=== PATIENT | female | born 1935 | race Caucasian/White ===

== ENCOUNTER 2016-09-14 17:45 | Inpatient (IN) | payer BC ==
--- NOTE | ~2016-09-14 | DS ---
Discharge Summary [facility] [address] [place]. [address] NAME: TERESITA PAREKH : 34 STATUS : ADM IN [facility]#: [id number] AGE: 81 ADM/REG DATE : 09/14/16 MR#: [id number] REPORT SERV DATE: 09/22/16 DICTATED BY: TANESHA GEE DATE: 09/21/16 REPORT STATUS : Draft TRANSCRIBED BY: MODJulee DATE: 09/21/16 ADMISSION DATE: 09/14/2016 DISCHARGE DATE: Date of transfer to [facility] is 09/21/2016. CONDITION ON TRANSFER: Stable. DIAGNOSIS ON DISCHARGE/TRANSFER: Are the followin. 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 2. The patient continues to be on soft mechanical diet with aspiration precautions, as that is what the family wished. 3. Her other chronic problems include chronic neck pain from degenerative disk disease of the cervical spine for which patient has had surgery and according to the has steel lore in the cervical spine. For this, she takes chronic pain medications. 4. Hypertension, which is stable. 5. Diabetes mellitus, which is stable. 6. Hypothyroidism, which is stable at this time. 7. Chronic allergies, which are controlled. 8. Pulmonary fibrosis for which the patient is not on any oxygen at home, as it is in the early stages. BRIEF HOSPITAL COURSE: She is an 81-year-old white female patient, who was admitted on 09/14/2016, with weakness slurred speech and shortness of breath. She was admitted with a history of stroke, as she had a fairly large right pontine infarct, which left her with left hemiparesis. As she had come in more than 6 hours later she was not a candidate for tPA. The patient was essentially given symptomatic and supportive care only at this time, as I mentioned above, as she was not a candidate for tPA. Neurology consult was obtained and they suggested an MRI of the brain without contrast, and LP with opening pressure and CSF studies to check for HSV, cryptococcal antigen, PCR, bacterial culture, and Gram stain. Neurology also requested a sedimentation rate, CRP, fasting lipid profile, A1c, and procalcitonin level. They also suggested Depakote intravenously twice a day for headache. The patient also started getting PT/OT as soon as she was stabilized. The patient also got speech therapy consult. She also had a bedside swallow study, which showed that she was at risk for aspiration, but since family wished that she eat a soft mechanical diet and did not want any PEG tube placed at this time and also did not want any Dobhoff feeds placed at this time. She was started on soft mechanical diet with aspiration precautions and she has done well with that. She also gets her medications crushed either in applesauce or pudding. The patient also had a Cardiology consult at one point, because she had a few beats of SVT. Cardiology only suggested resuming her beta herlinda once she has started to be on feeds again and this is exactly what was done and with that her SVT resolved. Discharge Summary [place] [id number] [facility] [place]. [address] NAME: TERESITA PAREKH : 34 STATUS : ADM IN [facility]#: [id number] AGE: 81 ADM/REG DATE : 09/14/16 MR#: [id number] REPORT SERV DATE: 09/22/16 DICTATED BY: TANESHA GEE DATE: 09/21/16 REPORT STATUS : Draft TRANSCRIBED BY: VERNELL DATE: 09/21/16 The patient is ready for transfer to [facility] for ongoing PT and OT, as an inpatient on 09/21/2016, and she has been accepted by [facility]. Her discharge medications will include the following. The patient will be going to [facility] on aspirin 325 p.o. daily. 1. Neurontin 100 mg p.o. t.i.d. 2. Insulin sliding scale. 3. Levothyroxine 88 mcg p.o. daily. 4. Loratadine 10 mg p.o. daily. 5. Metoprolol 25 mg p.o. twice a day. 6. Potassium 20 mEq p.o. twice a day. 7. Simvastatin 40 mg p.o. at bedtime. 8. Januvia 100 mg p.o. daily. 9. Maxzide 50 mg p.o. daily. 10.Albuterol inhalation 4 times a day. 11.Temazepam 15 mg p.o. at bedtime p.r.n. for sleep. 12.OTC Prilosec 20 mg p.o. daily. 13.Tramadol 50-100 mg every four hours p.r.n. for pain and the patient will also be given a prescription for Percocet 5/325 one p.o. q.4 hours p.r.n. for neck pain and also Dulcolax 10 mg suppository p.r.n. for constipation. 14.I have the following labs on the patient upon discharge. First of all, the tests that she has obtained laboratory landeros include the following. CBC, which is the most recent 1 on the shows a WBC count of 9.7, hemoglobin 13.9, hematocrit 40.7, and platelet count 284. Electrolyte profile shows sodium of 143, potassium 3, which will be corrected. BUN 28, creatinine 0.6. 15.Her CSF culture showed that she had no growth at 3 days. Negative for meningitis. HSV was negative too. HSV DNA was not detected. 16.Troponin I was found to be slightly elevated at 0.15 on September 18, but this was deemed as demand ischemia per Cardiology and no further intervention at this time. Ammonia levels were slightly elevated at 33 on September 17. 17.The patient also had cryptococcal antigen that was negative. Sedimentation rate was 7, hemoglobin A1c came back at 7.6, reflecting diabetes mellitus that was fairly well controlled only. 18.Urinalysis showed negative UA on September 14. ABGs that were done on September 14 also showed that the patient was slightly hypoxemic, but she was given supplemental oxygen and this resolved. 19.Imaging studiesthat she has had include a chest x-ray that has come back with no cardiopulmonary abnormality that are acute. She had a brain CT scan without contrast that came back with no acute intracranial abnormality initially, but then when she did get her MRI of the brain, this did showed that she had a pontine infarct acutely. She has an acute right upper pontine infarction superimposed on the area and degeneration, and also moderate to extensive old deep white matter ischemic changes. The acute right upper pontine CVA which has resulted in the significant left-sided hemiparesis. MRA of the head showed atherosclerotic involvement of the basilar and posterior cerebral circulation and also extensive involvement of the middle cerebral circulation bilaterally. 20.Her procalcitonin came back at less than 0.05. Discharge Summary [facility] [address] [place]. [address] NAME: TERESITA PAREKH : 34 STATUS : ADM IN PAT#: [id number] AGE: 81 ADM/REG DATE : 09/14/16 MR#: [id number] REPORT SERV DATE: 09/22/16 DICTATED BY: TANESHA GEE DATE: 09/21/16 REPORT STATUS : Draft TRANSCRIBED BY: MODL DATE: 09/21/16 21.The patient also had a brain natriuretic peptide that was slightly elevated at 160.9 at one point. Her lipid profile that was done on 09/16 shows HDL of 43, LDL of 50, triglycerides of 234. Hence the reason to discontinue the Zocor, which she has always been on. 22.The patient is hence being stabilized and sent in stable condition for further inpatient rehab to [facility] and I have spent about 40 minutes dictating this discharge summary including [id number] encounter and summarizing this discharge. FE/VERNELL Tanesha Gee M.D. / [id number] CC: Jimmy Gonzales M.D.
--- NOTE | ~2016-09-14 | CN ---
Consultation Report [facility] [address] [place]. [address] NAME: TERESITA PAREKH : 34 STATUS : ADM IN PAT#: [id number] AGE: 81 ADM/REG DATE : 09/14/16 MR#: [id number] REPORT SERV DATE: 09/19/16 DICTATED BY: JASMEET WATTERS DATE: 09/19/16 REPORT STATUS : Draft TRANSCRIBED BY: MODJulee DATE: 09/19/16 CARDIOLOGY CONSULTATION DATE OF CONSULTATION: HISTORY: The patient is an 81-year-old white female with a history of hypertension and diabetes, who presented to the ER with weakness and slurring of her speech. The patient's states that she had some weakness and was evaluated in the ER in [facility]. A CT at that time showed no overt stroke; however, she continued to deteriorate to the point where she was able to ambulate and get out of the bed. A subsequent MRI showed a pontine infarct. She failed her initial swallowing study. In the midst of this evaluation process while in the clinical decision unit, she developed several minutes of SVT. Accompanying rhythm strips are consistent with some AV or AV node reentrant process. On some of her baseline rhythm strip, she has inverted P waves suggesting the presence of junctional complexes with retrograde conduction. Presently, she is lethargic. Her is in attendance. However, she is not able to respond to questions. He states she has no known cardiac history. He has never complained of tachy arrhythmias. CURRENT HOME MEDICATIONS: Aspirin 325 a day, Lomotil 2.5 three times a day, guaifenesin and codeine 10 mL seven times a day, hydrocodone/APAP 1 b.i.d., levothyroxine 88 per day, loratadine 10 per day, lorazepam 0.5 a day, metoprolol 25 b.i.d., omeprazole 20 a day, potassium 20 b.i.d., Zantac 150 a day, simvastatin 40 at h.s., sitagliptin 100 per day, sodium chloride nasal spray p.r.n., temazepam 15 at h.s., tramadol 15 b.i.d., and triamterene and hydrochlorothiazide 1 tablet daily. ALLERGIES OR INTOLERANCES: Ticlopidine from Ticlid and sulfa-containing antibiotics. SOCIAL HISTORY: She is . Negative for current alcohol or tobacco use although she was exposed to great deal of secondhand smoke in her job. This is her second marriage as well as her 's second marriage. His 20 some years ago. There were after his , and they have been for 20 some years. PAST MEDICAL HISTORY/REVIEW OF SYSTEMS: See above. Positive for lymphocytic colitis, pulmonary fibrosis, type 2 diabetes mellitus, hypertension, hyperlipidemia, frequent urinary tract infections, fibromyalgia with chronic pain syndrome, and pulmonary hypertension. PREVIOUS SURGICAL HISTORY: Includes cholecystectomy, hysterectomy, appendectomy, cervical spine and knee surgery, abdominoplasty, and previous hemorrhoidectomy. PHYSICAL EXAMINATION: GENERAL: An 81-year-old white female. VITAL SIGNS: Blood pressure presently 175/77, pulse 90 to 100 and regular, respirations 18. Consultation Report [place] [address] [place]. [address] NAME: TERESITA PAREKH : 34 STATUS : ADM IN [facility]#: [id number] AGE: 81 ADM/REG DATE : 09/14/16 MR#: [id number] REPORT SERV DATE: 09/19/16 DICTATED BY: JASMEET WATTERS DATE: 09/19/16 REPORT STATUS : Draft TRANSCRIBED BY: VERNELL DATE: 09/19/16 SKIN: No xanthelasmas. HEENT: She is normocephalic. There is no pallor. Sclerae white. JVD presently is not elevated. CHEST: There are sparse basilar crackles posteriorly. CARDIAC: S1 normal S2 physiologic. There is an S4. There is a 1/6 systolic ejection murmur transmitted to the base and the carotids. ABDOMEN: Soft. EXTREMITIES: Without edema. Pulses are +1 and symmetric. NEUROLOGIC: Somewhat lethargic at this time. Upper right extremity has lower facial palsy. Left eye is in the leftward deviated position. The patient is dysarthric. LABORATORY DATA: BUN 17, creatinine 0.57, potassium 2.9. White count 9.3, hemoglobin 14.2. A 12-lead ECG shows sinus rhythm, normal axes and intervals. Echocardiogram shows normal LV systolic function with no valvular abnormalities. Initial white count of 6.1 and hemoglobin 15.3. IMPRESSION: 1. Pontine stroke with significant impairment. 2. Supraventricular tachycardia, short duration, likely the metoprolol has kept this at advance, at this point, however, I would not treat her with anything. Once enteric access is again provided, we could consider either calcium channel herlinda with resumption of her metoprolol. 3. Diabetes mellitus. 4. Pulmonary fibrosis with hypertension. 5. Hyperlipidemia. We will continue to observe from a far. No need for acute intervention at this time. LORENA/MODL Jasmeet Watters M.D. / [id number] CC: Edson Oliva Jr, MD [facility]
--- NOTE | ~2016-09-14 | HP ---
History And Physical [place] [address] [facility] [place]. [address] NAME: TERESITA PAREKH : 34 STATUS : ADM [facility] PAT#: [id number] AGE: 81 ADM/REG DATE : 09/14/16 MR#: [id number] REPORT SERV DATE: 09/15/16 DICTATED BY: BRIAN NAVARRO DATE: 09/14/16 REPORT STATUS : Draft TRANSCRIBED BY: MODL DATE: 09/14/16 DATE OF ADMISSION: 09/14/2016 CHIEF COMPLAINT: Weakness, slurred speech, and shortness of breath. HISTORY OF PRESENT ILLNESS: This is an 81-year-old female with a history of hypertension, diabetes mellitus, who presents to the emergency room at [facility] with the above-mentioned complaints. History is obtained from the patient, her who is at bedside, and reviewing data available on the [employer] system. According to them, she had started having shortness of breath and extreme weakness yesterday in the morning. This was quite unusual and her was concerned and took her to the emergency room at [facility]. She was worked up including CT of the brain, everything checked out fine and she was discharged home. Unfortunately, the patient's condition got worse, and today she was unable to even get off the bed. She also had nausea and vomited once. Her decided to bring her to the emergency room here at [facility] to be evaluated. During this time, he further elaborated that she did have some slight slurring of speech, and she also had some slowing in her speech. She was weak in both her lower extremities, but did not have any typical stroke-like symptoms. She did not have any chest pain. She does have a history of pulmonary fibrosis, but currently not on home oxygen. In the emergency room, initial workup including CT scan of the brain was negative. EKG showed normal sinus rhythm with a rate of 67 without any ischemic changes. Her room air oxygen saturations were quite low and I had asked for arterial blood gas which showed a pH of 7.46, pCO2 of 42, PaO2 of 54, and a bicarb of 29 on room air. Her magnesium was 1.4 today and her blood pressure upon arrival was 196/113. Hospitalist Service was asked to admit her for further evaluation and treatment. At the time of my evaluation, she denied any chest pain, palpitations, or orthopnea. She had no cough, hemoptysis, night sweats, or weight loss. She has not had any other sputum production either. She has not had any falls or loss of consciousness. No fevers or chills. She did have nausea and vomiting x1 as mentioned above. No history of hematemesis, hematochezia, or hematuria. No diarrhea. No other history of recent travel or exposures. PAST MEDICAL HISTORY: Significant for history of diabetes mellitus type 2, hypertension for which she is on a beta-herlinda, and history of pulmonary fibrosis. SOCIAL HISTORY: She has never smoked. Does not drink, or use recreational drugs. 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 FAMILY HISTORY: Noncontributory. MEDICATIONS: Her medications at home were reviewed by me in the chart today and reordered by me. History And Physical [address] [address] NAME: TERESITA PAREKH : 34 STATUS : ADM [facility] PAT#: [id number] AGE: 81 ADM/REG DATE : 09/14/16 MR#: [id number] REPORT SERV DATE: 09/15/16 DICTATED BY: BRIAN NAVARRO DATE: 09/14/16 REPORT STATUS : Draft TRANSCRIBED BY: VERNELL DATE: 09/14/16 REVIEW OF SYSTEMS: As in history of present illness. All other systems were reviewed in detail and are quite unremarkable. PHYSICAL EXAMINATION: GENERAL: This is a pleasant 81-year-old, not in any acute distress. HEENT: Her head is atraumatic and normocephalic. She is alert, awake, oriented to time, place, and person. Pupils are equal, reacting to light and accommodating. External ocular muscles are intact. Membranes are moist and pink. Sclerae are nonicteric. NECK: Supple with no jugular venous distention, lymphadenopathy, or thyromegaly. LUNGS: Clear to auscultation. There are few Velcro crackles especially in the lower bases, both sides. No expiratory wheezes. Trachea appeared to be in midline. HEART: Auscultation of her heart revealed normal rate and rhythm with no murmurs, rubs, or gallops appreciated. ABDOMEN: Soft and nontender. Bowel sounds are present. There was no organomegaly. EXTREMITIES: Showed trace pitting lower extremity edema. Otherwise, without any cyanosis or clubbing. NEUROLOGIC: Grossly intact. No focal deficits. She was able to move all four extremities. Higher functions appeared intact. Gait was not examined today. VITAL SIGNS: Her temperature today was 98.1, pulse 66, respirations 18 a minute, blood pressure was 196/113. Room air oxygen saturations upon arrival were 88%. LABORATORY DATA: Reviewed on the [employer] system showed a pH of 7.46, pCO2 of 33, PaO2 of 54, and bicarb was 29.6 on arterial blood gas done on room air. CMP showed a sodium of 139, potassium 3.5, chloride 99, and CO2 of 31. BUN was 18 with a creatinine of 0.95 and blood glucose was 140. Her magnesium was 1.4 today. Her BNP was 160.9. Her troponin was 0.02. CBC showed a white blood cell count of 6100. Normal hemoglobin, hematocrit, and platelet count. Urinalysis was done yesterday at [place] which I reviewed and showed no gross abnormality. Films of the CT scan of her brain and x-ray of the chest were reviewed by me on the PACS today and interpreted by me. Per my interpretation the CT of the brain did not show any acute intracranial abnormality. Chest x-ray films showed normal bony architecture with no cardiomegaly. There is increased vascular congestion bilaterally, but no effusions. Compared to her previous films which I reviewed on PACs today's appears to be worse. A 12-lead EKG done in emergency room was reviewed and interpreted by me. There is normal sinus rhythm with a rate of [address]-T changes. IMPRESSION: History And Physical [address] [address] NAME: TERESITA PAREKH : 34 STATUS : ADM [place] PAT#: [id number] AGE: 81 ADM/REG DATE : 09/14/16 MR#: [id number] REPORT SERV DATE: 09/15/16 DICTATED BY: BRIAN NAVARRO DATE: 09/14/16 REPORT STATUS : Draft TRANSCRIBED BY: MODJulee DATE: 09/14/16 1. Generalized weakness. 2. Gait abnormality. 3. Hypoxemia requiring supplemental oxygen therapy and PaO2 on room air of 54. 4. Uncontrolled hypertension. 5. Diabetes mellitus type 2. 6. Hypomagnesemia. 7. Mild volume overload with a history of pulmonary fibrosis. PLAN: We will admit Mrs. Parekh to a telemetry bed for a 24-hour observation period. Her weakness and encephalopathy may be multifactorial including hypoxemia, her uncontrolled hypertension, and maybe even a TIA or CVA. We will go ahead and maximize her bronchodilator treatments, continue supplemental oxygen therapy for now, and also give her a dose of intravenous diuretics. We will follow chemistry, electrolytes, and CBC in the morning. Meanwhile, we will also go ahead and get an echocardiogram. She will certainly need an MRI of her brain, plus carotid duplex ultrasound. We will go ahead and order this. For blood pressure control we will restart her home medications, beta-herlinda that she is on, and also provide hydralazine intravenously on an as-needed basis. It is quite possible being sick for the last two days she may not have taken her medicine. The patient states she did. We will also start her on blood sugar control with NovoLog given subcutaneously per sliding scale and place her on unfractionated heparin for DVT prophylaxis while here. She will certainly need home O2 evaluation before her discharge. I have discussed the above plans with the patient and her . Questions were answered. They are agreeable to the above recommendations. Hospitalist Service will be following her during her stay here. /VERNELL Brian Navarro M.D. / [id number] CC: Edson Oliva Jr, MD
--- NOTE | ~2016-09-14 | CN ---
Consultation Report [facility] [address] [place]. [address] NAME: TERESITA PAREKH : 34 STATUS : ADM IN PAT#: [id number] AGE: 81 ADM/REG DATE : 09/14/16 MR#: [id number] REPORT SERV DATE: 09/18/16 DICTATED BY: SIDRA LACEY DATE: 09/18/16 REPORT STATUS : Draft TRANSCRIBED BY: VERNELL DATE: 09/18/16 GI CONSULTATION DATE OF CONSULTATION: 09/18/2016 REASON FOR CONSULTATION: Evaluation and management of oropharyngeal dysphagia, PEG tube placement secondary to acute CVA. HISTORY OF PRESENT ILLNESS: Ms Parekh is an 81-year-old female patient, known to Dr. Mello Cruz, whom we have seen most recently in the hospital in March 2016. At that time, we saw her for nausea, vomiting, and diarrhea. She underwent EGD and colonoscopy with Dr. Clemente and was subsequently discharged, presented on the with complaints of acute neuro changes. The daughter states that she began to have symptoms last Friday, the , went to [facility], states that all testing was returned negative. She was sent back home. She continued to have progressive left-sided weakness, talked to her primary care physician who instructed her to come to [facility], which when she got here, she was seen. She was seen by Neurology who had an MRI of the brain, which showed right pontine CVA. She has associated left hemiparesis, as well as left eye gaze abnormality. She has failed a bedside swallow evaluation with silent aspiration, inability to control her secretions, thus prompting GI consultation. She was ordered to be started on Plavix; however since she has been n.p.o., she is yet to receive any Plavix. I have discussed with the patient's family, as well as the patient plan for PEG tube to be done on 09/19/[address] Clemente. Risks, benefits, alternatives, and complications detailed for her to include, but not limited to risk of bleeding, perforation, infection, reaction to medications with cardiac and pulmonary side effects. They give consent for us to perform PEG tube on Ms Parekh. PAST MEDICAL HISTORY: Positive for acute on chronic diarrhea, lymphocytic colitis, pulmonary fibrosis, type 2 diabetes, hypertension, elevated cholesterol, UTIs, fibromyalgia, chronic pain medications, vertigo, pulmonary hypertension, depression, and shingles. PAST SURGICAL HISTORY: Cholecystectomy, hysterectomy, appendectomy, back surgery, cervical spine surgery, knee surgery, tummy tuck, and hemorrhoidectomy. SOCIAL HISTORY: . No alcohol, tobacco, or illicits. FAMILY HISTORY: Negative from a GI standpoint. ALLERGIES: TICLID AND SULFA. HOME MEDICATIONS: Aspirin, Lomotil, M-Clear, [place], levothyroxine, Claritin, Ativan, Lopressor, Prilosec, potassium, Zantac, Zocor, Januvia, Esmeralda nasal spray, Restoril, Ultram, and Maxzide. Consultation Report [address] [place]. [address] NAME: TERESITA PAREKH : 34 STATUS : ADM IN PAT#: [id number] AGE: 81 ADM/REG DATE : 09/14/16 MR#: [id number] REPORT SERV DATE: 09/18/16 DICTATED BY: SIDRA LACEY DATE: 09/18/16 REPORT STATUS : Draft TRANSCRIBED BY: VERNELL DATE: 09/18/16 REVIEW OF SYSTEMS: Unable to be obtained secondary to the patient's decreased neuro status. PHYSICAL EXAMINATION: VITAL SIGNS: Temperature 97.9, pulse 95, respirations 22, and blood pressure 172/79. NEURO: Reveals a groggy female, resting in bed with notable left-sided weakness, left hemiparesis, and left eye gaze abnormality. GENERAL: She is in no obvious distress. HEAD, EARS, EYES, NOSE, AND THROAT: Anicteric. NECK: No JVD. No palpable nodes. LUNGS: Diminished throughout. Normal respiratory effort exhibited. CARDIOVASCULAR SYSTEM: Regular rate and rhythm. ABDOMEN: Soft, nontender, obese. Active bowel sounds. No distention. No guarding. No rebound or organomegaly appreciated on exam. EXTREMITIES: No edema. Normal distal pulses. SKIN: Warm, dry, and intact. PERTINENT LABORATORY DATA: Sodium 143, potassium 3.1, BUN is 25, creatinine 0.67. White count 7.9, hemoglobin 14.6, hematocrit 43.2, and platelet count 259. ASSESSMENT AND PLAN: 1. Oropharyngeal dysphagia with silent aspiration. 2. Status post right pontine cerebrovascular accident with left-sided weakness/hemiparesis. 3. Hypertension. 4. Diabetes. PLAN: 1. Continue to hold Plavix as she is yet to receive a dose. 2. Hold her heparin of today's 2 p.m. dose. 3. Preprocedure antibiotics of Levaquin. 4. PEG tube on the with Dr. Clemente. 5. Nutrition consult for tube feeding recommendations and management. DG/MODL Sidra ELIOT Calderon / [id number] CC: Edson Oliva Jr, MD Jerrold Selzer, M.D.
--- NOTE | ~2016-09-14 | DS ---
Discharge Summary [address] [place]. [address] NAME: TERESITA PAREKH : 34 STATUS : DIS IN PAT#: [id number] AGE: 81 ADM/REG DATE : 09/14/16 MR#: [id number] REPORT SERV DATE: 09/24/16 DICTATED BY: TANESHA GEE DATE: 09/23/16 REPORT STATUS : Draft TRANSCRIBED BY: MODL DATE: 09/23/16 ADMISSION DATE: 09/14/2016 DISCHARGE DATE: 09/23/2016 ADDENDUM: DISPOSITION: Transfer to [facility] on [facility]. CONDITION ON TRANSFER: Stable. DATE OF TRANSFER: 09/23/2016. Please refer to my discharge summary that was dictated on 09/21/2016. Discharge was held on 09/21/2016 and was postponed until 09/23/2016 for two reasons because of bed availability and the patient developed some hematuria in the meantime. However, once the patient was given fluids and her Tate catheter was discontinued, her hematuria completely resolved and hence, the patient is being transferred to [facility] in stable condition. FE/VERNELL Tanesha Gee M.D. / [id number] CC: Jimmy Gonzales M.D.
--- NOTE | ~2016-09-14 | CN ---
Consultation Report [facility] [address] [place]. [address] NAME: TERESITA PAREKH : 34 STATUS : ADM Caren PAT#: [id number] AGE: 81 ADM/REG DATE : 09/14/16 MR#: [id number] REPORT SERV DATE: 09/15/16 DICTATED BY: DATE: REPORT STATUS : Draft TRANSCRIBED BY: MODL DATE: 09/15/16 NEUROLOGY CONSULTATION DATE OF CONSULTATION: 09/15/2016 REASON FOR CONSULT: Acute neurological changes. HISTORY OF PRESENT ILLNESS: This is an 81-year-old female, who presented to the [facility] secondary to headache, as well as weakness. The patient was noted to have slurred speech starting on September 14, 2016 with the patient's symptom progressively getting worse over the night, throughout the night at hospital, also noted the patient to start developing left-sided weakness, particularly in the left arm with the patient's reports time of onset for left upper extremity weakness to be around 0200 hours to 0300 hours with the patient's symptom remains unchanged since the onset. The patient currently complains of severe headache with associated nausea, as well as vomiting with the left upper extremity weakness. The patient's also reports some signs between September 14 to September 15. The patient was noted to have left eye gaze abnormalities. The patient was not noted to have similar events in the past, but was noted to have chronic headache for the past two to three months worse when the patient was lying down at night. No reports of fever or chills at home and no reports of other illness at home. No reports of medication changes according to the . PAST MEDICAL HISTORY: Significant for type 2 diabetes, hypertension, as well as history of pulmonary fibrosis. SOCIAL HISTORY: Denies tobacco, alcohol, or recreational drug usage. No report of significant family history was noted. FAMILY HISTORY: Significant for diabetes, heart disease, as well as lung cancer with the patient reports multiple sensitivities to medications, but cannot remember. ALLERGIES: THE PATIENT OTHERWISE REPORTS ALLERGY TO TICLID, WELL SULFA MEDICATION. HOME MEDICATION: Consists of aspirin, Lomotil, levothyroxine, Claritin, Lopressor, potassium, Zocor, Januvia, nasal spray, and Maxzide. REVIEW OF SYSTEMS: Difficult to obtain from the patient secondary to the patient's current mental status, negative except for those mentioned in the HPI according to the . PHYSICAL EXAMINATION: VITAL SIGNS: Overnight, the patient was noted to have vital signs with T-max of 98.5, heart rates of 57 to 72, respirations of 14 to 16, and blood pressure of 172 to 188 over 72 to 89. GENERAL: The patient is well developed, well nourished, in no acute distress. Consultation Report [address] [place]. [address] NAME: TERESITA PAREKH : 34 STATUS : ADM Caren PAT#: [id number] AGE: 81 ADM/REG DATE : 09/14/16 MR#: [id number] REPORT SERV DATE: 09/15/16 DICTATED BY: DATE: REPORT STATUS : Draft TRANSCRIBED BY: MODL DATE: 09/15/16 CARDIOVASCULAR: Regular rate and rhythm. No carotid bruits were otherwise auscultated. PULMONARY: Clear to auscultation bilaterally. NEUROLOGICAL: Generally, the patient is lethargic, was able to be aroused with verbal and tactile stimulation. The patient was moaning in bed secondary to pain, otherwise was following some sporadic simple commands. At the time of evaluation, dysarthria was noted. The patient is oriented to self, as well as place and month, not to year. Minimal verbal response was noted. Aphasia was difficult to assess. The patient otherwise was noted to have pupils equal, round, and reactive to light with right eye in the midline position, left eye in the leftward deviated position. The patient was noted to have intact extraocular eye movement with the right eye with the patient noted to have difficulties moving the left eye towards the right. Otherwise, bilateral blink to threat response was seen. The patient demonstrated right upper, as well as lower facial palsy at the time of evaluation with the patient noted to have weakness in the left upper extremity, as well as bilateral lower extremity. The patient is able to maintain arm elevations in the left upper extremity. Deep tendon reflex was hyperreflexic in bilateral arms, otherwise 1+ in bilateral patellar reflex. Gait and cerebellar examination was not tested secondary to the patient's mental status. LABORATORY STUDIES: Demonstrated white blood cell count of 6.7, hemoglobin of 16.3, hematocrit of 46.6, and platelet count of 259. Chemistry panel: Sodium of 138, potassium 3.2, chloride of 96, bicarb 31, BUN of 15, creatinine of 0.93, glucose of 161, calcium of 9.9, magnesium 1.5. Serum TSH of 1.02. Serum ABG demonstrated pH of 7.46, pCO2 of 43, pO2 of 54, bicarb of 29.6, and O2 saturation of 89.0. Urinalysis demonstrated negative leukocyte esterase, negative nitrites. CT scan of the brain otherwise demonstrated no acute process, underlying white matter disease was seen. CT angiogram, no clear intracranial thrombosis was noted. The radiology interpretation is currently pending. IMPRESSION: 1. Hemiparesis, as well as headache with the patient's reports the headache has been ongoing for the past two to three months. The patient otherwise was noted to have weakness in the left upper, as well as bilateral lower extremities with gait abnormalities. Unfortunately, alteplase was not offered as the patient's symptom has been ongoing for greater than 4.5 hours. No clear abnormality was noted with CT angiogram. We will continue to monitor the patient's clinical progression. We will recommend the MRI of the brain today and obtain lumbar puncture. We will also obtain laboratory studies for evaluation. The patient's current NIH stroke scale was 23. RECOMMENDATIONS: 1. MRI of the brain without contrast. 2. LP with opening pressure. 3. CSF for protein, glucose, cell count with differential, HSV PCR, cryptococcal antigen, Consultation Report [address] [address] NAME: TERESITA PAREKH : 34 STATUS : ADM Caren PAT#: [id number] AGE: 81 ADM/REG DATE : 09/14/16 MR#: [id number] REPORT SERV DATE: 09/15/16 DICTATED BY: DATE: REPORT STATUS : Draft TRANSCRIBED BY: MODL DATE: 09/15/16 Gram stain, bacterial culture. 4. Sedimentation rate, CRP, fasting lipid panel, and hemoglobin A1c, and procalcitonin level. 5. Speech Therapy consult. 6. PT/OT. 7. Depakote 125 mg IV b.i.d. for headache. 8. Toradol 30 mg IV t.i.d. for headache. 9. Aspirin and statin. [facility]/MODL Truong Yo MD / [id number] CC: Edson Oliva Jr, MD
[~2016-09-14 17:45] MED LIST: ACTOS15 PO; ALAVERT10 MG PO; AMB5 PO; ASA5GR PO; ATV.5 PO; AVAP150 PO; CLARIT10 PO; COZAAR100 MG PO; DIOVAN320 MG PO; FISH-EPA1000 MG PO; ISOPTINSR PO; JANUVIA100 MG PO; K-TABS10 MEQ PO; KLOR-CON M2020 MEQ PO; L20 PO; LEVAQUIN5T PO; LEVBID PO; LEVOTHYROXIN75 MCG PO; LEVOTHYROXIN88 MCG PO; LIPITOR10 PO; LOM PO; LOP25 PO; LORTAB 5 PO; MAGOX4 PO; MAX25 PO; NORCO1 TA1 PO; NORV5 PO; OCEAN NAS; PEPTO-BISMOL TA1 TAB PO; PREV15 PO; PREV30 PO; PREVALITE4 G1 PO; PROTONIX PO; RANITIDINE300 MG PO; REST15 PO; SLOWMAG PO; SYN075 PO; TOPXL25 PO; Z100 PO; ZANTAC OTC PO; ZOCOR20 PO; ZOCOR40 PO; [UNRECOGNIZED DRUG - CODE] PO
[2016-09-14 18:08] LABS: BASOPHILS 0.3 %; BASOPHILS ABSOLUTE 0.02 10/3/uL (0.0-0.16); EOSINOPHILS 2.8 %; EOSINOPHILS ABSOLUTE 0.17 10/3/uL (0.0-0.53); ER CBC TAT 0 Hrs 08 Mins; HEMATOCRIT 44.2 % (36.0-48.0); HEMOGLOBIN 15.3 g/dL (12.0-16.0); IMMATURE GRANULOCYTES 0.2 %; IMMATURE GRANULOCYTES ABSOLUTE 0.01 10/3/uL (0.0-0.11); LYMPHOCYTES 20.1 %; LYMPHOCYTES ABSOLUTE 1.22 10/3/uL (0.67-4.30); MEAN CORPUSCULAR HEMOGLOB 34.5 pg (26.0-34.0); MEAN CORPUSCULAR VOLUME 99.5 fL (80-100); MEAN PLATELET VOLUME 9.2 fL (9.2-13.0); MONOCYTES 9.2 %; MONOCYTES ABSOLUTE 0.56 10/3/uL (0.21-1.20); NEUTROPHILS 67.4 %; NEUTROPHILS ABSOLUTE 4.09 10/3/uL (2.02-8.40); PLATELET COUNT 237 10/3/uL (150-400); RBC DISTRIBUTION WIDTH 12.6 % (12.0-16.0); RED CELL COUNT 4.44 10/6/uL (4.0-5.6); WHITE BLOOD CELLS 6.1 10/3/uL (4.5-10.5)
[2016-09-14 18:10] LABS: MANUAL DIFF NO %; MEAN CORPUS HGB CONC 34.6 g/dL (32.0-36.0)
[2016-09-14 18:23] LABS: INTERNATIONAL NORMAL RATI 1.1 UNITS (-); PROTIME (NOT ORD) 13.9 SEC (12.0-14.5)
[2016-09-14 18:25] LABS: CHEST PAIN PROFILE TAT 0 Hrs 25 Mins; CHLORIDE, SERUM 97 MMOL/L (96-112); CO2 (CARBON DIOXIDE) 31 MMOL/L (24-34); CREATININE 0.95 MG/DL (0.55-1.02); GFR AFRICAN AMERICAN 65 ML/MIN (>=60); GFR NON AFRICAN AMERICAN 56 ML/MIN (>=60); GLUCOSE, SERUM 140 MG/DL (60-99); POTASSIUM, SERUM 3.5 MMOL/L (3.5-5.3); SODIUM, SERUM 139 MMOL/L (135-148); TROPONIN I <0.02 NG/ML (<0.05)
[2016-09-14 18:27] LABS: BUN (BLOOD UREA NITROGEN) 18 MG/DL (6-23)
[2016-09-14] MEDS ORDERED: ASA5GR PO (19:22)
[2016-09-14] MEDS ORDERED: LEVOTHYROXIN88 MCG PO (19:22)
[2016-09-14] MEDS ORDERED: KLOR-CON M2020 MEQ PO (19:22)
[2016-09-14] MEDS ORDERED: CLARIT10 PO (19:23)
[2016-09-14] MEDS ORDERED: LOP50 PO (19:23)
[2016-09-14] MEDS ORDERED: MAX25 PO (19:23)
[2016-09-14] MEDS ORDERED: JANUVIA100 MG PO (19:23)
[2016-09-14] MEDS ORDERED: ZOCOR40 PO (19:23)
[2016-09-14] MEDS ORDERED: LOM PO (19:24)
[2016-09-14] MEDS ORDERED: *UNABLE1 (19:24)
[2016-09-14] MEDS ORDERED: OCEAN NAS (19:24)
[2016-09-14 19:37] LABS: BE (BASE EXCESS) 5.2 MEQ/L (0 +/- 2.5); CARBOXYHEMOGLOBIN 1.5 % (0-3); HCO3 (ACTUAL BICARBONATE) 29.6 MEQ/L (23-27); HEMOBLOGIN CONTENT 16.1 G/DL (12-16); INSTRUMENT SERIAL # 8087; METHEMOGLOBIN 0.3 % (0-3); O2 CONTENT 19.7 VOL% (18-24); OPERATOR ID 17537; PCO2 (CO2 TENSION) 43 MMHG (35-45); PO2 (O2 TENSION) 54 MMHG (79-93); SAMPLE Arterial; pH 7.46 (7.37-7.43)
[2016-09-14 19:38] LABS: ALLENS TEST Pos
[2016-09-14 19:40] LABS: ASCORBIC ACID (UR NOT ORDER) NEG (NEG); BILIRUBIN, URINE NEGATIVE (NEG); ER URINALYSIS TAT 0 Hrs 10 Mins; KETONE, URINE NEGATIVE (NEG); LEUKOCYTE ESTERASE(NOT OR NEG (NEG); NITRITE (URINE) NEG (NEG); WBC (NOT ORDERED) (RFLEX) 2 (0-5)
[2016-09-15 04:43] LABS: BASOPHILS 0.3 %; BASOPHILS ABSOLUTE 0.02 10/3/uL (0.0-0.16); EOSINOPHILS 2.8 %; EOSINOPHILS ABSOLUTE 0.19 10/3/uL (0.0-0.53); HEMATOCRIT 46.6 % (36.0-48.0); HEMOGLOBIN 16.3 g/dL (12.0-16.0); LYMPHOCYTES 14.7 %; LYMPHOCYTES ABSOLUTE 0.98 10/3/uL (0.67-4.30); MEAN CORPUSCULAR HEMOGLOB 34.5 pg (26.0-34.0); MEAN CORPUSCULAR VOLUME 98.7 fL (80-100); MEAN PLATELET VOLUME 9.6 fL (9.2-13.0); NEUTROPHILS 73.2 %; NEUTROPHILS ABSOLUTE 4.88 10/3/uL (2.02-8.40); PLATELET COUNT 259 10/3/uL (150-400); RBC DISTRIBUTION WIDTH 12.5 % (12.0-16.0); RED CELL COUNT 4.72 10/6/uL (4.0-5.6); WHITE BLOOD CELLS 6.7 10/3/uL (4.5-10.5)
[2016-09-15 04:47] LABS: MANUAL DIFF NO %
[2016-09-15 05:11] LABS: BUN (BLOOD UREA NITROGEN) 15 MG/DL (6-23); CALCIUM, SERUM 9.9 MG/DL (8.5-10.4); CHLORIDE, SERUM 96 MMOL/L (96-112); CO2 (CARBON DIOXIDE) 31 MMOL/L (24-34); CREATININE 0.93 MG/DL (0.55-1.02); GFR AFRICAN AMERICAN 66 ML/MIN (>=60); GFR NON AFRICAN AMERICAN 57 ML/MIN (>=60); GLUCOSE, SERUM 161 MG/DL (60-99); PHOSPHORUS, SERUM 3.9 MG/DL (2.5-4.5); POTASSIUM, SERUM 3.2 MMOL/L (3.5-5.3); SODIUM, SERUM 138 MMOL/L (135-148)
[2016-09-15 10:37] LABS: TROPONIN I <0.02 NG/ML (<0.05)
[2016-09-15 10:38] LABS: C-REACTIVE PROTEIN 3.6 MG/L (<8.0)
[2016-09-15 10:40] LABS: PROCALCITONIN <0.05 ng/mL (<0.5)
[2016-09-15] MEDS ORDERED: LOP25 PO (17:17)
[2016-09-15] MEDS ORDERED: REST15 PO (17:34)
[2016-09-15] MEDS ORDERED: ATV.5 PO (17:35)
[2016-09-15] MEDS ORDERED: MAX25 PO (17:35)
[2016-09-15] MEDS ORDERED: PRILOSEC OTC20 MG PO (17:41)
[2016-09-15] MEDS ORDERED: ZANTAC 150 PO (17:41)
[2016-09-15] MEDS ORDERED: NORCO1 TA1 PO (17:43)
[2016-09-15] MEDS ORDERED: ULTRAM50 PO (17:44)
[2016-09-15] MEDS ORDERED: M-CLEAR WC PO (17:45)
[2016-09-16 03:51] LABS: CHOL/HDL RATIO(NOT ORDER) 3.2 (0-5)
[2016-09-16 09:44] LABS: CSF APPEARANCE (NOT ORD) CLEAR (CLEAR); CSF COLOR (NOT ORD) COLORLESS (COLORLESS); CSF XANTHROCHROMIA NEG (NEG)
[2016-09-16 09:45] LABS: CSF WBC (NOT ORD) 2 /uL (0-10)
[2016-09-16 09:52] LABS: TOTAL PROTEIN, CSF 55.6 MG/DL (15-45)
[2016-09-16 10:48] LABS: CSF RBC (NOT ORD) 0 MM3 (NO REFERENCE)
[2016-09-16 10:54] LABS: CSF BASO 0 % (NO REF RANGE); CSF EOS 0 % (0-1); CSF LYMPH (NOT ORD) 62 % (28-96); CSF MONO 34 % (16-56); CSF SEGS (NOT ORD) 3 % (0-7)
[2016-09-18 04:35] LABS: BASOPHILS 0.1 %; BASOPHILS ABSOLUTE 0.01 10/3/uL (0.0-0.16); EOSINOPHILS 0.3 %; EOSINOPHILS ABSOLUTE 0.02 10/3/uL (0.0-0.53); HEMATOCRIT 43.2 % (36.0-48.0); HEMOGLOBIN 14.6 g/dL (12.0-16.0); IMMATURE GRANULOCYTES 0.1 %; IMMATURE GRANULOCYTES ABSOLUTE 0.01 10/3/uL (0.0-0.11); LYMPHOCYTES 8.1 %; LYMPHOCYTES ABSOLUTE 0.64 10/3/uL (0.67-4.30); MANUAL DIFF NO %; MEAN CORPUS HGB CONC 33.8 g/dL (32.0-36.0); MEAN CORPUSCULAR HEMOGLOB 34.4 pg (26.0-34.0); MEAN CORPUSCULAR VOLUME 101.6 fL (80-100); MEAN PLATELET VOLUME 9.6 fL (9.2-13.0); MONOCYTES 5.6 %; MONOCYTES ABSOLUTE 0.44 10/3/uL (0.21-1.20); NEUTROPHILS 85.8 %; NEUTROPHILS ABSOLUTE 6.77 10/3/uL (2.02-8.40); PLATELET COUNT 259 10/3/uL (150-400); RBC DISTRIBUTION WIDTH 13.2 % (12.0-16.0); RED CELL COUNT 4.25 10/6/uL (4.0-5.6); WHITE BLOOD CELLS 7.9 10/3/uL (4.5-10.5)
[2016-09-18 04:42] LABS: CHLORIDE, SERUM 105 MMOL/L (96-112); CREATININE 0.67 MG/DL (0.55-1.02); GFR AFRICAN AMERICAN 95 ML/MIN (>=60); GFR NON AFRICAN AMERICAN 82 ML/MIN (>=60); GLUCOSE, SERUM 156 MG/DL (60-99); SODIUM, SERUM 143 MMOL/L (135-148)
[2016-09-18 04:44] LABS: BUN (BLOOD UREA NITROGEN) 25 MG/DL (6-23); CALCIUM, SERUM 7.8 MG/DL (8.5-10.4); CO2 (CARBON DIOXIDE) 25 MMOL/L (24-34); POTASSIUM, SERUM 3.1 MMOL/L (3.5-5.3)
[2016-09-18 13:36] LABS: HSV DNA TYPE 1 Not Detected (NOTDET); HSV DNA TYPE 2 Not Detected (NOTDET)
[2016-09-18 16:39] LABS: POTASSIUM, SERUM 3.2 MMOL/L (3.5-5.3)
[2016-09-18 16:41] LABS: TROPONIN I 0.15 NG/ML (<0.05)
[2016-09-19 07:07] LABS: BASOPHILS 0.1 %; BASOPHILS ABSOLUTE 0.01 10/3/uL (0.0-0.16); EOSINOPHILS 0.6 %; EOSINOPHILS ABSOLUTE 0.06 10/3/uL (0.0-0.53); HEMATOCRIT 41.3 % (36.0-48.0); HEMOGLOBIN 14.2 g/dL (12.0-16.0); IMMATURE GRANULOCYTES 0.3 %; IMMATURE GRANULOCYTES ABSOLUTE 0.03 10/3/uL (0.0-0.11); LYMPHOCYTES 9.2 %; LYMPHOCYTES ABSOLUTE 0.85 10/3/uL (0.67-4.30); MEAN CORPUS HGB CONC 34.4 g/dL (32.0-36.0); MEAN CORPUSCULAR HEMOGLOB 33.6 pg (26.0-34.0); MEAN PLATELET VOLUME 9.4 fL (9.2-13.0); MONOCYTES 5.8 %; MONOCYTES ABSOLUTE 0.54 10/3/uL (0.21-1.20); NEUTROPHILS ABSOLUTE 7.77 10/3/uL (2.02-8.40); PLATELET COUNT 256 10/3/uL (150-400); RBC DISTRIBUTION WIDTH 13.2 % (12.0-16.0); RED CELL COUNT 4.23 10/6/uL (4.0-5.6); WHITE BLOOD CELLS 9.3 10/3/uL (4.5-10.5)
[2016-09-19 07:08] LABS: MANUAL DIFF NO %; MEAN CORPUSCULAR VOLUME 97.6 fL (80-100)
[2016-09-19 07:16] LABS: INTERNATIONAL NORMAL RATI 1.3 UNITS (-)
[2016-09-19 07:17] LABS: PROTIME (NOT ORD) 16.3 SEC (12.0-14.5)
[2016-09-19 07:22] LABS: CALCIUM, SERUM 7.7 MG/DL (8.5-10.4); CHLORIDE, SERUM 100 MMOL/L (96-112); CO2 (CARBON DIOXIDE) 25 MMOL/L (24-34); CREATININE 0.57 MG/DL (0.55-1.02); GFR AFRICAN AMERICAN 100 ML/MIN (>=60); GFR NON AFRICAN AMERICAN 86 ML/MIN (>=60); GLUCOSE, SERUM 129 MG/DL (60-99); SODIUM, SERUM 139 MMOL/L (135-148)
[2016-09-19 07:23] LABS: BUN (BLOOD UREA NITROGEN) 17 MG/DL (6-23); POTASSIUM, SERUM 2.9 MMOL/L (3.5-5.3)
[2016-09-20 06:08] LABS: CALCIUM, SERUM 7.9 MG/DL (8.5-10.4); CHLORIDE, SERUM 104 MMOL/L (96-112); CO2 (CARBON DIOXIDE) 23 MMOL/L (24-34); CREATININE 0.61 MG/DL (0.55-1.02); GFR AFRICAN AMERICAN 98 ML/MIN (>=60); GFR NON AFRICAN AMERICAN 84 ML/MIN (>=60); GLUCOSE, SERUM 154 MG/DL (60-99); SODIUM, SERUM 141 MMOL/L (135-148)
[2016-09-20 06:09] LABS: BUN (BLOOD UREA NITROGEN) 23 MG/DL (6-23); POTASSIUM, SERUM 2.8 MMOL/L (3.5-5.3)
[2016-09-21 06:35] LABS: BASOPHILS 0.1 %; BASOPHILS ABSOLUTE 0.01 10/3/uL (0.0-0.16); EOSINOPHILS 0.5 %; EOSINOPHILS ABSOLUTE 0.05 10/3/uL (0.0-0.53); HEMATOCRIT 40.7 % (36.0-48.0); HEMOGLOBIN 13.9 g/dL (12.0-16.0); IMMATURE GRANULOCYTES 0.3 %; IMMATURE GRANULOCYTES ABSOLUTE 0.03 10/3/uL (0.0-0.11); LYMPHOCYTES 6.4 %; LYMPHOCYTES ABSOLUTE 0.62 10/3/uL (0.67-4.30); MEAN CORPUS HGB CONC 34.2 g/dL (32.0-36.0); MEAN CORPUSCULAR HEMOGLOB 34.8 pg (26.0-34.0); MEAN PLATELET VOLUME 9.6 fL (9.2-13.0); MONOCYTES ABSOLUTE 1.06 10/3/uL (0.21-1.20); NEUTROPHILS 81.7 %; NEUTROPHILS ABSOLUTE 7.89 10/3/uL (2.02-8.40); PLATELET COUNT 284 10/3/uL (150-400); RBC DISTRIBUTION WIDTH 13.6 % (12.0-16.0); WHITE BLOOD CELLS 9.7 10/3/uL (4.5-10.5)
[2016-09-21 06:36] LABS: MANUAL DIFF NO %; MEAN CORPUSCULAR VOLUME 101.8 fL (80-100)
[2016-09-21 06:48] LABS: CALCIUM, SERUM 7.8 MG/DL (8.5-10.4); CHLORIDE, SERUM 108 MMOL/L (96-112); CO2 (CARBON DIOXIDE) 27 MMOL/L (24-34); GFR AFRICAN AMERICAN 98 ML/MIN (>=60); GFR NON AFRICAN AMERICAN 85 ML/MIN (>=60); GLUCOSE, SERUM 163 MG/DL (60-99); SODIUM, SERUM 143 MMOL/L (135-148)
[2016-09-21 06:53] LABS: BUN (BLOOD UREA NITROGEN) 28 MG/DL (6-23)
[2016-09-22 14:08] LABS: WBC (NOT ORDERED) (RFLEX) 0 (0-5)
[2016-09-22 14:26] LABS: ASCORBIC ACID (UR NOT ORDER) 20 (NEG); BILIRUBIN, URINE NEGATIVE (NEG); KETONE, URINE NEGATIVE (NEG); LEUKOCYTE ESTERASE(NOT OR NEG (NEG)
[2016-09-23 06:05] LABS: BASOPHILS 0.2 %; BASOPHILS ABSOLUTE 0.02 10/3/uL (0.0-0.16); EOSINOPHILS 3.3 %; EOSINOPHILS ABSOLUTE 0.31 10/3/uL (0.0-0.53); HEMATOCRIT 41.6 % (36.0-48.0); HEMOGLOBIN 14.2 g/dL (12.0-16.0); IMMATURE GRANULOCYTES 0.3 %; IMMATURE GRANULOCYTES ABSOLUTE 0.03 10/3/uL (0.0-0.11); LYMPHOCYTES 6.5 %; LYMPHOCYTES ABSOLUTE 0.62 10/3/uL (0.67-4.30); MEAN CORPUS HGB CONC 34.1 g/dL (32.0-36.0); MEAN CORPUSCULAR HEMOGLOB 33.7 pg (26.0-34.0); MEAN CORPUSCULAR VOLUME 98.8 fL (80-100); MEAN PLATELET VOLUME 9.8 fL (9.2-13.0); MONOCYTES 9.5 %; NEUTROPHILS 80.2 %; PLATELET COUNT 305 10/3/uL (150-400); RBC DISTRIBUTION WIDTH 13.5 % (12.0-16.0); RED CELL COUNT 4.21 10/6/uL (4.0-5.6); WHITE BLOOD CELLS 9.5 10/3/uL (4.5-10.5)
[2016-09-23 06:06] LABS: MANUAL DIFF NO %
[2016-09-23 06:17] LABS: BUN (BLOOD UREA NITROGEN) 17 MG/DL (6-23); CALCIUM, SERUM 8.3 MG/DL (8.5-10.4); CHLORIDE, SERUM 99 MMOL/L (96-112); CO2 (CARBON DIOXIDE) 26 MMOL/L (24-34); CREATININE 0.54 MG/DL (0.55-1.02); GFR AFRICAN AMERICAN 102 ML/MIN (>=60); GFR NON AFRICAN AMERICAN 88 ML/MIN (>=60); GLUCOSE, SERUM 159 MG/DL (60-99); POTASSIUM, SERUM 4.3 MMOL/L (3.5-5.3); SODIUM, SERUM 136 MMOL/L (135-148)
[2016-09-24] MEDS ORDERED: LIPITOR80 MG PO (11:12)
[2016-09-24] MEDS ORDERED: ASA5GR PO (11:12)
[2016-09-24] MEDS ORDERED: CLARIT10 PO (11:12)
[2016-09-24] MEDS ORDERED: DSS PO (11:12)
[2016-09-24] MEDS ORDERED: NEUR100 PO (11:13)
[2016-09-24] MEDS ORDERED: SYN88 PO (11:14)
[2016-09-24] MEDS ORDERED: HUMALOG SC (11:14)
[2016-09-24] MEDS ORDERED: JANUVIA100 MG PO (11:14)
[2016-09-24] MEDS ORDERED: LOP25 PO (11:15)
[2016-09-24] MEDS ORDERED: KLOR-CON M2020 MEQ PO (11:15)
[2016-09-24] MEDS ORDERED: MAXZIDE PO (11:15)
[2016-09-24] MEDS ORDERED: ALBUTEROL0.083 % INH ×2 (11:16→11:18)
[2016-09-24] MEDS ORDERED: ENDOCET1 TAB PO (11:18)
[2016-09-24] MEDS ORDERED: REST15 PO (11:19)
[2016-09-24] MEDS ORDERED: ULTRAM50 PO (11:19)
[2016-11-05] MEDS ORDERED: ASAB PEG (08:12)
[2016-11-05] MEDS ORDERED: NORV5 PEG (08:12)
[2017-01-03] MEDS ORDERED: LOVENOX40 SC (00:33)
[2017-01-03] MEDS ORDERED: HUMALOG SC (00:34)
[2017-01-03] MEDS ORDERED: LEVEMIR SC (00:35)
[2017-01-03] MEDS ORDERED: PRIN10 PEG (00:36)
[2017-01-03] MEDS ORDERED: ASAB PEG (00:36)
[2017-01-03] MEDS ORDERED: SYN125 PEG (00:36)
[2017-01-03] MEDS ORDERED: DUONEB INH (00:36)
[2017-01-03] MEDS ORDERED: KCL20UDL PEG (00:37)
[2017-01-03] MEDS ORDERED: FLORASTOR250 MG PEG (00:37)
[2017-01-03] MEDS ORDERED: LIPITOR80 MG PEG (00:38)
[2017-01-03] MEDS ORDERED: PROTONI1 PEG (00:38)
[2017-01-03] MEDS ORDERED: COREG6 PEG (00:38)
[2017-01-03] MEDS ORDERED: ACETSUP650 PR (00:39)
[2017-01-03] MEDS ORDERED: ZOFRAN4 PEG (00:39)
[2017-01-03] MEDS ORDERED: PLAVIX PO (04:26)
[2017-01-22] MEDS ORDERED: LOVENOX40 SC (01:50)
[2017-01-22] MEDS ORDERED: PLAVIX PEG (01:50)
[2017-01-22] MEDS ORDERED: HUMALOG SC (01:51)
[2017-01-22] MEDS ORDERED: LEVEMFLXPN SC (01:51)
[2017-01-22] MEDS ORDERED: ASAB PEG (01:51)
[2017-01-22] MEDS ORDERED: FLORASTOR250 MG PEG (01:53)
[2017-01-22] MEDS ORDERED: KCL20UDL PEG (01:53)
[2017-01-22] MEDS ORDERED: LIPITOR80 MG PEG (01:54)
[2017-01-22] MEDS ORDERED: COREG25 PEG (01:55)
[2017-01-22] MEDS ORDERED: PROTONI1 PEG (01:55)
[2017-01-22] MEDS ORDERED: DUONEB INH ×2 (01:56→01:57)
[2017-01-22] MEDS ORDERED: APRES50 PEG (01:56)
[2017-01-22] MEDS ORDERED: PRIN20 PEG (01:56)
[2017-01-22] MEDS ORDERED: BROVANA15 MCG INH (01:57)
[2017-01-22] MEDS ORDERED: ZOFRAN4 PEG (01:58)
[2017-01-22] MEDS ORDERED: ACETSUP650 PR (01:58)
[2017-01-22] MEDS ORDERED: SYN.15 PEG (01:59)
[2017-01-22] MEDS ORDERED: RISAMINE OINTMENT TOP (02:00)
[2017-02-11] MEDS ORDERED: PLAVIX PEG (19:08)
[2017-02-11] MEDS ORDERED: LOVENOX40 SC (19:09)
[2017-02-11] MEDS ORDERED: NOVOLOG SC (19:10)
[2017-02-11] MEDS ORDERED: LEVEMIR SC (19:12)
[2017-02-11] MEDS ORDERED: SYN.15 PEG (19:13)
[2017-02-11] MEDS ORDERED: PROTONI1 PEG (19:13)
[2017-02-11] MEDS ORDERED: ASAB PEG (19:14)
[2017-02-11] MEDS ORDERED: NORV5 PEG (19:14)
[2017-02-11] MEDS ORDERED: TEARS PURE OPH (19:14)
[2017-02-11] MEDS ORDERED: COREG25 PEG (19:15)
[2017-02-11] MEDS ORDERED: ZESTRIL30 MG PEG (19:15)
[2017-02-11] MEDS ORDERED: FLORASTOR250 MG PEG (19:16)
[2017-02-11] MEDS ORDERED: KCL20UDL PEG (19:16)
[2017-02-11] MEDS ORDERED: DUONEB INH ×2 (19:19→19:29)
[2017-02-11] MEDS ORDERED: LIPITOR10 PEG (19:19)
[2017-02-11] MEDS ORDERED: BROVANA15 MCG INH (19:21)
[2017-02-11] MEDS ORDERED: 8 HOUR650 MG PEG (19:21)
[2017-02-11] MEDS ORDERED: ACETSUP650 PR (19:22)
[2017-02-11] MEDS ORDERED: DSS PEG (19:23)
[2017-02-11] MEDS ORDERED: ZOFRAN ODT4 MG PO (19:27)
[2017-02-11] MEDS ORDERED: ALBUTEROL0.083 % INH (19:28)
[2017-02-11] MEDS ORDERED: RISAMINE OINTMENT TOP (19:31)
== END 2016-09-23 15:25 | DRG 65 ==
LOC: ER 17:45 → CDU1 20:43 → CDU2 21:47 → 1SO 09-18 13:48
PROVIDERS: Internal Medicine; Nurse Practitioner Acute Care; Nurse Practitioner Family; Physician Assistant; Psychiatry & Neurology Neurology
PROC: 009U3ZZ Drainage of Spinal Canal, Percutaneous Approach (ICD-10-PCS; principal; 2016-09-16)
DX: I63.9 Cerebral infarction, unspecified (principal); G81.94 Hemiplegia, unspecified affecting left nondominant side; J84.10 Pulmonary fibrosis, unspecified; I47.1 Supraventricular tachycardia; R13.12 Dysphagia, oropharyngeal phase; E87.6 Hypokalemia; I10 Essential (primary) hypertension; R29.810 Facial weakness; R33.9 Retention of urine, unspecified; E78.5 Hyperlipidemia, unspecified; E11.9 Type 2 diabetes mellitus without complications; R09.02 Hypoxemia; E03.9 Hypothyroidism, unspecified; R31.9 Hematuria, unspecified; R47.1 Dysarthria and anarthria; M47.9 Spondylosis, unspecified; M79.7 Fibromyalgia; R51 Headache; G89.29 Other chronic pain; M54.2 Cervicalgia; E83.42 Hypomagnesemia; E87.70 Fluid overload, unspecified; Z79.82 Long term (current) use of aspirin; Z79.891 Long term (current) use of opiate analgesic; Z79.899 Other long term (current) drug therapy; Z88.2 Allergy status to sulfonamides; Z88.8 Allergy status to other drugs, medicaments and biological substances; Z87.440 Personal history of urinary (tract) infections
CPT/HCPCS: 36600; 62270; 70450; 70496; 70498; 70544; 70551; 71010; 71020; 77003; 80048; 80061; 81001; 82140; 82805; 82945; 82962; 83036; 83735; 83880; 84100; 84132; 84145; 84157; 84443; 84484; 85025; 85610; 85652; 85730; 86140; 86403; 86403-59; 87070; 87205; 87327; 87529; 87529-59; 89051; 92522-GN; 92610-GN; 93005; 94640; 96374; 97110-GO; 97110-GP; 97162-GP; 97166-GO; 97530-GP; 99285; A9270-GY; J0360; J1885; J2405; J3411

== ENCOUNTER 2016-09-24 08:50 | Inpatient (IN) | payer BC ==
--- NOTE | ~2016-09-24 | CN ---
Consultation Report [facility] [address] [place]. [address] NAME: TERESITA PAREKH : 34 STATUS : ADM IN PAT#: [id number] AGE: 81 ADM/REG DATE : 09/24/16 MR#: [id number] REPORT SERV DATE: 09/24/16 DICTATED BY: DATE: REPORT STATUS : Draft TRANSCRIBED BY: MODL DATE: 09/24/16 NEUROLOGY CONSULTATION DATE OF CONSULTATION: 09/24/2016 REASON FOR CONSULT: Encephalopathy, concern for stroke. HISTORY OF PRESENT ILLNESS: This is an 81-year-old female recently hospitalized in 08/2016, secondary to dysarthria with the patient noted to have right pontine stroke. The patient during the hospitalization was noted to have a speech evaluation which the patient reported she has not improved swallow study. Initially, she was going to obtain PEG tube study, but family subsequently refused. The patient, prior to hospital discharge, was being suctioned and was noted to have a vomiting episode, subsequently was noted to be aspirated prior to discharge. The patient was discharged from the hospital on 09/23/2016, despite aspiration. According to the patient's , the patient was noted to be encephalopathic and difficult to arouse at around 0200 hours on 09/23/2016, was discharged 1600 hours 2017. After hospital discharge, it was reported she noted to have febrile episodes with a T-max reportedly around 101 according to the patient's . The patient was noted to have no spontaneous movement and possible worsening of the left upper extremity weakness compared to hospital stay. The patient presents to be obtunded and difficult to arouse. As a result, the patient was brought back to the hospital for repeat evaluation. Prior to the episode, the patient was noted to be alert, no records of recent intubation was otherwise noted prior to the hospital discharge. No critical care consultation was noted prior to the recent hospital discharge. The patient during the hospitalization was started on Plavix, but subsequently Plavix was held due to concern for possible PEG placement. At discharge, the patient's Plavix was not restarted. The patient was discharged on aspirin as well as Lipitor. No other significant change was otherwise noted compared to previous hospitalization. PAST MEDICAL HISTORY: Significant for hypertension, pulmonary fibrosis, type 2 diabetes. SOCIAL HISTORY: Denies tobacco, alcohol, recreational drug usage during previous hospitalization. FAMILY HISTORY: Significant for diabetes, heart disease, lung cancer. ALLERGIES: THE PATIENT REPORTS ALLERGY TO TICLID WELL SULFA MEDICATION. HOME MEDICATIONS: The patient's home medication otherwise consists of albuterol, aspirin, Lipitor, Colace, Neurontin, Humalog, Synthroid, Claritin, Lopressor, Endocet, potassium, Januvia, Restoril, Ultram, Maxzide. REVIEW OF SYSTEMS: Unable to be obtained secondary to the patient's current mental status. Consultation Report [address] [place]. [address] NAME: TERESITA PAREKH : 34 STATUS : ADM IN [facility]#: [id number] AGE: 81 ADM/REG DATE : 09/24/16 MR#: [id number] REPORT SERV DATE: 09/24/16 DICTATED BY: DATE: REPORT STATUS : Draft TRANSCRIBED BY: VERNELL DATE: 09/24/16 PHYSICAL EXAMINATION: VITAL SIGNS: Since the hospital admission, the patient was noted to have vital signs with T- max of 101.2, heart rate of 82-105, respiration of 16 to 24, and blood pressure of 162- 199/70-88. GENERAL: The patient is well developed, well nourished, in no acute distress. CARDIOVASCULAR: Regular rate and rhythm. No carotid bruits were otherwise auscultated. PULMONARY: Diminished breath sound was noted in bilateral lung meyer. NEUROLOGIC: Generally, the patient was obtunded, was unable to be aroused. The patient does demonstrate an eye opening with noxious stimulation. No verbal and no following commands at the time of evaluation. Cranial nerves II through XII. Pupils equal, round, and reactive to light. The patient was noted to have persistent left eye gaze deviation to the left which the patient demonstrated blink response at the time of evaluation. Otherwise, trace horizontal eye movement was noted on the right eye. Decreased nasolabial fold was noted on the left. The patient noted to have grimace to noxious stimulation in bilateral upper and lower extremity. The patient demonstrated trace withdrawal to noxious stimulation in bilateral lower extremity. At the time of evaluation, 3+ reflex in the left upper and left lower extremity, 2+ reflex in the right upper and right lower extremity. Upgoing toe on the left plantar reflex. No plantar reflex was obtained in the right foot. Gait and cerebellar examination is unable to be obtained secondary to the patient's current mental status. LABORATORY DATA: Laboratory studies demonstrates sodium 130, potassium of 3.8, chloride of 91, bicarb 26, BUN of 17, creatinine of 0.59, glucose of 156, calcium of 8.4. Recent TSH of 1.02 on 09/15 with the patient noted to have recent fasting lipid panel. On 09/16, cholesterol level 139, HDL 43, LDL 58, and triglyceride of 234. Hemoglobin A1c on 09/24/2016 was 7.5. The patient demonstrated white blood cell count of 12.5, hemoglobin of 15.2, hematocrit of 43.0, platelet count of 313. Urinalysis demonstrated large leukocyte esterase and positive nitrite. CT scan of the brain demonstrated no acute process; however, MRI of the brain demonstrated new subcortical internal capsule as well as insular cortex infarction in the left as well as small embolic right frontal stroke. IMPRESSION: 1. Left middle cerebral artery territory stroke. 2. Right frontal embolic appearing stroke. The patient has had recent echocardiogram as well as CT angiogram with known vertebral artery arthrosclerotic diseases. We are recommending start the patient on aspirin 300 mg per rectum daily. Once the patient is able to tolerate, we will restart the patient on Lipitor as well as Plavix. Secondary to embolic appearing stroke, we will recommend rechecking SILVERIO. Meanwhile, once the patient is more awake, we will recommend resuming PT/OT. 3. Encephalopathy likely secondary to new stroke as well as aspiration pneumonia and urinary tract infection. The patient does have recent EEG with concern for possible left ascites slowing secondary to either stroke or possible symptomatic seizures. Once the patient is more arousable, we will re-evaluate the patient for possible anti- seizure medications. 4. Pneumonia. Consultation Report [id number] [facility] [place]. [address] NAME: TERESITA PAREKH : 34 STATUS : ADM IN PAT#: [id number] AGE: 81 ADM/REG DATE : 09/24/16 MR#: [id number] REPORT SERV DATE: 09/24/16 DICTATED BY: DATE: REPORT STATUS : Draft TRANSCRIBED BY: MODL DATE: 09/24/16 5. Urinary tract infection. We will defer to hospitalist for antibiotic management. RECOMMENDATIONS: 1. Aspirin 300 mg per rectum daily. 2. Swallow study by speech therapy. 3. We will restart Lipitor and Plavix when the patient is able to tolerate. 4. Cardiology consult for SILVERIO. 5. PT/OT when the patient is more alert. 6. We will defer to hospitalist for antibiotic management. 7. When the patient is more alert, we will re-evaluate the patient for possible seizure medication. [facility]/MODL Truong Yo MD / [id number] CC: Jimmy Lorenz M.D.
--- NOTE | ~2016-09-24 | EEG ---
Electroencephalogram [address] [place]. [address] NAME: TERESITA PAREKH : 34 STATUS : ADM IN PAT#: [id number] AGE: 81 ADM/REG DATE : 09/24/16 MR#: [id number] REPORT SERV DATE: 09/24/16 DICTATED BY: ANDRIA HERNANDEZ DATE: 09/24/16 REPORT STATUS : Draft TRANSCRIBED BY: VERNELL DATE: 09/24/16 REQUESTING PHYSICIAN: Daniela Maier M.D. EEG NUMBER: [id number]. TEST LOCATION: Emergency Room, bed 2, but I think she has been admitted to the hospital. BEADWORKER: Rafa Guerra. INTRODUCTION: This is an 18-channel EEG recorded with scalp electrodes in the International 10-20 system. The patient is an 81-year-old female, who was recently admitted with CVA, has been readmitted with UTI and possible aspiration pneumonia. She has altered mentation. MEDICATIONS: Not listed. DESCRIPTION: The background rhythm while awake consisted of predominantly 6 Hz activity present from the right posterior head regions. This activity was also seen from the central to a lesser degree on mid temporal head region on the right. From the left, there was less organized background with lower amplitudes. There was a large amount of frontal artifact as well, more prominent from the left hemisphere. Photic stimulation from 1 Hz through 21 Hz frequencies did not produce a significant change in the EEG. Hyperventilation was not performed. Throughout the EEG, there was no significant change, although the degree of muscle artifact fluctuated was quite prominent from the temporal head regions, and also left frontal head region at the end of the recording. On the EKG lead, occasional PVCs are noted. IMPRESSION: THIS EEG IS ABNORMAL DUE TO: 1. SLOWING FROM THE RIGHT HEMISPHERE. 2. SLOWER FREQUENCIES WITH LOWER AMPLITUDE AND LESS ORGANIZATION FROM THE LEFT HEMISPHERE. 3. THERE IS NO EPILEPTIFORM ACTIVITY SEEN. 4. THIS EEG INDICATES DIFFUSE CEREBRAL DYSFUNCTION, OFTEN SEEN IN TOXIC METABOLIC AND POSTICTAL STATES. THERE IS AN ASYMMETRY, IT APPEARS THAT THE LEFT HEMISPHERE HAS MORE DYSFUNCTION WITH A DISORGANIZED BACKGROUND AND LOWER AMPLITUDES. THE STRUCTURAL LESION INVOLVING THIS AREA SHOULD BE CONSIDERED. [facility]/VERNELL Andria Hernandez M.D. / [id number] CC: Jasper Blair M.D. Electroencephalogram [address] [address] NAME: TERESITA PAREKH : 34 STATUS : ADM IN PAT#: [id number] AGE: 81 ADM/REG DATE : 09/24/16 MR#: [id number] REPORT SERV DATE: 09/24/16 DICTATED BY: ANDRIA HERNANDEZ DATE: 09/24/16 REPORT STATUS : Draft TRANSCRIBED BY: VERNELL DATE: 09/24/16 Ambrosio Wilde M.D.
--- NOTE | ~2016-09-24 | EEG ---
Electroencephalogram [address] [place]. [address] NAME: TERESITA PAREKH : 34 STATUS : ADM IN PAT#: [id number] AGE: 81 ADM/REG DATE : 09/24/16 MR#: [id number] REPORT SERV DATE: 10/14/16 DICTATED BY: DATE: REPORT STATUS : Draft TRANSCRIBED BY: MODL DATE: 10/14/16 CLINICAL INDICATION: Encephalopathy. DESCRIPTION: This EEG was performed using 10/20 electrode placement system. During the EEG study, symmetric background activity with generalized slowing was seen with predominant occipital rhythm of 6-7 hertz. Photic stimulation was performed with a driving response especially in the lower frequencies. No focal abnormality, seizure activity, or seizure discharge was otherwise noted. Hyperventilation was not performed secondary to the patient's underlying medical condition as well as the mental status. The patient achieved drowsy, stage I and II sleep with appropriate sleep spindles and K-complexes during the EEG study. INTERPRETATION: This EEG study obtained during awake, drowsy as well as stage I and II sleep may be considered mildly abnormal secondary to presence of generalized slowing. No focal abnormality, seizure activity, or seizure discharge was otherwise noted. No electrographic seizure or clinical seizure episode was captured during today's EEG study. Clinical correlation is recommended. [facility]/VERNELL Truong Yo MD / [id number] CC: Jimmy Lorenz M.D.
--- NOTE | ~2016-09-24 | IDS ---
Interim Discharge Summary [facility] [address] [place]. [address] NAME: TERESITA PAREKH : 34 STATUS : ADM IN PAT#: [id number] AGE: 81 ADM/REG DATE : 09/24/16 MR#: [id number] REPORT SERV DATE: 10/15/16 DICTATED BY: JASMEET BLAIR DATE: 10/14/16 REPORT STATUS : Draft TRANSCRIBED BY: MODL DATE: 10/14/16 ADMISSION DATE: 09/24/2016 DISCHARGE DATE: Interim summary covers period 10/08/2016 to 10/14/2016 CURRENT DIAGNOSES: 1. Encephalopathy, multifactorial including cerebrovascular accidents plus metabolic factors, improved. 2. Multiple cerebrovascular accidents by MRI imaging including high posterior right frontal white matter and white matter lateral thalamus on the left, new since 09/15/2016, at which time, there was an acute infarction in upper rakesh on right. 3. Oropharyngeal dysphagia with aspiration, currently on enteral nutrition by PEG at goal rate. 4. Pulmonary infiltrates thought secondary to aspiration and possible volume overload, improved. 5. Acute hypoxemic respiratory failure secondary to above improved. 6. Type 2 diabetes with hyperglycemia, currently improved, controlled on combination basal insulin and q.6 hours regular insulin. 7. Hypokalemia and hypomagnesemia, improved on replacement therapy. 8. Occult gastrointestinal bleeding with stable hemoglobin with duodenal ulcer found at the time of PEG tube placement, 10/03/2016, currently on PPI therapy. 9. Hypothyroid, on Synthroid replacement, replacement restarted during this hospitalization after temporary omittance. 10.Proteus catheter associated urinary tract infection, treatment initiated. 11.Chronic pain syndrome including chronic neck pain with MRI cervical spine showing postsurgical changes with anterior fusion hardware extending from C5 through C7. Central lobular posterior disk osteophyte complex at C4-5, which contacts the anterior aspect of the cord but only producing mild spinal canal narrowing, MRI 09/24/2016. 12.History of supraventricular tachycardia, none documented this week. 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 OPERATION AND PROCEDURES DURING THIS INTERIM: None. During this interim, there has been a slow but progressive improvement in her encephalopathy. At this time, she is more alert, recognizes your presence and family and answers simple questions appropriately. Her improvement was thought to be multifactorial including reinstitution of her Synthroid noting TSH on 10/10/2016 was 14.2. In addition, her antihypertensive therapy was changed with discontinuation of Catapres patch and escalation of amlodipine and metoprolol dosing. In addition, her blood sugar management has been tightened with q.6 hours blood sugars in the last 24 hours at 153, 185, 143, and 124. Also all opioids have been discontinued with the use of only Tylenol for pain management. She has had some upper airway congestion related to oropharyngeal dysphagia. She Interim Discharge Summary [address] [address] NAME: TERESITA PAREKH : 34 STATUS : ADM IN PAT#: [id number] AGE: 81 ADM/REG DATE : 09/24/16 MR#: [id number] REPORT SERV DATE: 10/15/16 DICTATED BY: JASMEET BLAIR DATE: 10/14/16 REPORT STATUS : Draft TRANSCRIBED BY: VERNELL DATE: 10/14/16 intermittently requires Yankauer suctioning. She is thought to have some intermittent aspiration. Additional oral care has been provided and EzPAP with her aerosols, which seems to have improved her pulmonary status. Further optimization will require speech therapy and E-stim. She has had ongoing hypokalemia and hypomagnesemia, question related to PPI therapy. Replacement doses have been escalated with normalization of values. She was noted to have significant urinary sediment. A culture has grown Proteus and appropriate therapy has been initiated. She was to be transitioned to [facility]. Her discharge was held today pending PT note review by her insurance carrier. Care to be assumed by Hospitalist Team. DD/MODL Jasmeet Blair M.D. / [id number] CC: Jimmy Lorenz M.D.
--- NOTE | ~2016-09-24 | IDS ---
Interim Discharge Summary [facility] [address] [place]. [address] NAME: TERESITA PAREKH : 34 STATUS : ADM IN [facility]#: [id number] AGE: 81 ADM/REG DATE : 09/24/16 MR#: [id number] REPORT SERV DATE: 10/07/16 DICTATED BY: GRACEJOSIASMIKAYLA ANNA DATE: 10/07/16 REPORT STATUS : Draft TRANSCRIBED BY: MODL DATE: 10/07/16 ADMISSION DATE: 09/24/2016 DISCHARGE DATE: DATE OF DISCHARGE: Unknown. INTERIM DIAGNOSES: 1. 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 2. Embolic cerebrovascular accident. 3. Diabetes mellitus type 2. 4. Hypertension. 5. Dysphagia. 6. History of silent aspiration status post percutaneous endoscopic gastrostomy tube placement on October 03, 2016. 7. Mild malnutrition. 8. Duodenal ulcer. 9. Urinary tract infection, treated. 10.Hypomagnesium, treated. CONSULTATIONS: 1. GI, Mao Calderon on September 30, 2016. 2. Neurology, Dr. Yo on September 24, 2016. PROCEDURES: Upper GI, October 03, 2016, PEG tube placed, large duodenal ulcer and externally removable PEG placement was successful and completed. RECOMMENDATIONS: Protonix 40 mg b.i.d. for 8 weeks. COURSE OF HOSPITAL STAY: Please refer to history and physical dictated by Dr. Daniela Maier on September 24, 2016 for complete admission details, as well as consultation note by Mao Calderon on September 30, 2016, as well as interim note by Dr. Helms on September 29, 2016. This patient is an 81-year-old female, who presented with a recent right pontine CVA with left hemispheres, dysarthria, and confusion, history of pulmonary fibrosis, hypertension, hyperlipidemia, diabetes, depression, presenting with a change in mental status. The patient had recently been discharged to [facility] and then transferred back to [facility] for mental status changes. The patient recently was diagnosed with an embolic stroke on the right thalamus. 1. 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 Neurology was consulted to see the patient. Imaging was previously obtained. The patient had initially been started on Solu-Medrol. This was discontinued. Neurology has continued to follow. 2. Embolic cerebrovascular accident. As noted above, the patient was evaluated by Neurology, which has been following the patient. The patient, per Neurology, was started on aspirin and Lipitor. The patient is responding to limited verbal commands. She has limited movement in her extremities and the patient answers very limited questions. She will not open and close eyes on command. Interim Discharge Summary [id number] [place]. [address] NAME: TERESITA PAREKH : 34 STATUS : ADM IN [facility]#: [id number] AGE: 81 ADM/REG DATE : 09/24/16 MR#: [id number] REPORT SERV DATE: 10/07/16 DICTATED BY: JOSIAS FLEMING DATE: 10/07/16 REPORT STATUS : Draft TRANSCRIBED BY: VERNELL DATE: 10/07/16 3. Diabetes mellitus type 2. The patient's blood sugar has been monitored at this time. She is on Levemir and sliding scale. Blood sugars are continued to be monitored. 4. Hypertension. The patient's blood pressures have been monitored at this time. Blood pressure is 132/68, which is stable. Continue same plan of care. The patient is on Norvasc and hydralazine p.r.n. 5. Dysphagia, history of silent aspiration and mild malnutrition: GI was consulted regarding PEG tube placement. This was placed on October 03, 2016. The patient is tolerating tube feeds which are at goal. 6. Urinary tract infection, positive Citrobacter Koseri, which the patient was treated for. 7. Hypomagnesium. The patient's magnesium has been treated per protocol. 8. Duodenal ulcer. As noted, during the PEG tube placement, duodenal ulcer was noted and the patient was placed on Protonix 40 mg b.i.d. for a total of eight weeks. DISCHARGE PLANNING: catering convention services manager is working with family regarding discharge planning. The patient will need long-term care. The patient's family at this time is working regarding which facility would be appropriate for the patient. This patient will be followed by Dr. Juanito Montes. [facility]/VERNELL Josias Fleming NP / [id number] CC: MD Ambrosio Chamorro M.D.
--- NOTE | ~2016-09-24 | HP ---
History And Physical [id number] [place]. [address] NAME: TERESITA PAREKH : 34 STATUS : ADM IN [facility]#: [id number] AGE: 81 ADM/REG DATE : 09/24/16 MR#: [id number] REPORT SERV DATE: 09/24/16 DICTATED BY: KEVIN MAIER DATE: 09/24/16 REPORT STATUS : Draft TRANSCRIBED BY: VERNELL DATE: 09/24/16 DATE OF ADMISSION: 09/24/2016 CHIEF COMPLAINT: Mental status change. HISTORY OF PRESENT ILLNESS: The patient is an 81-year-old white female who was actually just discharged from the hospital yesterday. She was admitted on 09/14/2016. She suffered an acute right pontine CVA that left her with a left-sided hemiparesis. She also, at the time of diagnosis, had some dysarthria and dysphagia. The family states that she actually improved quite a bit, that she was talking in that she was able to eat after she repeated her swallow study. Things seemed to be a bit improved. She did somewhat better on her swallowing but she still had difficulties according to speech evaluation on the . Her dentures fit poorly and she has some oropharyngeal issues with swallowing. She was sluggish with laryngeal elevation. It was recommended she have supervised meals, aggressive oral care and that she still perhaps presented with significant cognitive impairment which may impede her ability to swallow. At that time, it was recommended that she have a nutritional consult and possibly an alternative feeding source; however, the family elected to not perform feeding tube placement as her swallowing had improved from her initial study. She went to [facility] yesterday, they stated yesterday she seemed fine in the morning, then around 1:15 after eating something or taking a pill, they were not sure as they were not in the room, she apparently had some choking and coughing which they thought could have been aspiration. Her mental status declined from there and they states she was basically unresponsive at the [facility]. Again today she was unresponsive and she was subsequently transferred to [facility]. She had a fever 101.2 at the [facility]. They also noticed that her urine looked purulent. She had a cough and had some difficulty clearing some secretions. She can provide no history and the family gives all the above history. PAST MEDICAL HISTORY: 1. Recent right pontine CVA with resultant left hemiparesis, dysarthria, some mild confusion, and some elements of dysphagia. 2. Pulmonary fibrosis. 3. Lymphocytic colitis with diarrhea. 4. Diabetes mellitus. 5. Hypertension. 6. Hyperlipidemia. 7. Recurrent urinary tract infections. 8. Fibromyalgia. 9. Chronic pain. 10.Vertigo. 11.Pulmonary hypertension. 12.Depression. 13.Shingles. PAST SURGICAL HISTORY: 1. Cholecystectomy. 2. Hysterectomy. History And Physical [address] [address] NAME: TERESITA PAREKH : 34 STATUS : ADM IN [facility]#: [id number] AGE: 81 ADM/REG DATE : 09/24/16 MR#: [id number] REPORT SERV DATE: 09/24/16 DICTATED BY: KEVIN MAIER DATE: 09/24/16 REPORT STATUS : Draft TRANSCRIBED BY: VERNELL DATE: 09/24/16 3. Appendectomy. 4. Cervical spine surgery. 5. Knee surgery. 6. Cataract surgery. 7. Right total knee arthroplasty. 8. Tummy tuck. 9. Hemorrhoidectomy. ALLERGIES: SULFA AND TICLID. SOCIAL HISTORY: She did not smoke. She had some second-hand exposure. She does not drink. She has 4 children. FAMILY HISTORY: Her father with heart disease and diabetes and her mother had bone cancer. HOME MEDICATIONS: Reviewed and attached. REVIEW OF SYSTEMS: Full 10-point review of systems obtained. All other history is provided via the family. PHYSICAL EXAMINATION: VITAL SIGNS: Currently her sats are 100% on 2 L, blood pressure 191/88, temperature 101.2, and a pulse of 99 to 105. GENERAL: Frail-appearing white female who opens her left eye to voice. HEENT: Normocephalic, atraumatic. Pupils are equal, round, and reactive. She does have some left eye deviation which apparently is not new. This happened with her stroke. I could not really open her mouth. She opened it somewhat with a tongue depressor but I could not get it all the way up. NECK: Supple. HEART: Regular rate and rhythm. LUNGS: She has transmitted upper airway sounds which are rhonchorous in nature. ABDOMEN: Soft, nontender, and nondistended. EXTREMITIES: Warm and dry. She has no peripheral edema. NEUROLOGIC: She is basically unresponsive. She does open her left eye to some stimuli but does not really otherwise follow any commands or respond. I cannot do a neurological exam as she cannot cooperate. She had a stool in the ER which was reported by the nurses to be dark in color and heme- positive. LAB AND X-RAY STUDIES: She has an EKG which shows normal sinus rhythm. Lab and x-ray otherwise show CBC shows a white count of 12.5, H and H 15 and 43, and platelets are 313. ABG 7.51/32/77. Coags are essentially normal. Basic metabolic panel: Sodium 130, potassium 3.8, chloride 91, CO2 of 26, BUN and creatinine 17 and 0.59. Glucose 156. LFTs are normal. Urine drug screen is essentially negative. Her troponin is 0.03. Her lactate is 1.2. Flu swabs are negative. Brain CT without contrast shows no acute infarct or hemorrhage. Urinalysis shows greater than 182 whites, many clumps, positive nitrite, and History And Physical [address] [address] NAME: TERESITA PAREKH : 34 STATUS : ADM IN [facility]#: [id number] AGE: 81 ADM/REG DATE : 09/24/16 MR#: [id number] REPORT SERV DATE: 09/24/16 DICTATED BY: KEVIN MAIER DATE: 09/24/16 REPORT STATUS : Draft TRANSCRIBED BY: VERNELL DATE: 09/24/16 large leukocyte esterase. Urine drug screen is negative. Chest x-ray shows some bibasilar atelectasis versus infiltrate. ASSESSMENT/PLAN: 1. Acute encephalopathy. I suspect that this is a metabolic encephalopathy secondary to underlying infection, i.e. urinary tract infection plus or minus possible aspiration pneumonia. I think the most reasonable thing to do is certainly look for any edema surrounding her stroke or other findings since she has had a recent stroke and change of mental status. I am going to do a stat MRI. We will also do an EEG to rule out seizure activity. In the meantime, we will treat her underlying infections in the hopes that her mental status will improve. We will avoid any sedating drugs. If she does not improve over the next 12 hours, then we will get Neurology involved. 2. Urinary tract infection. Place the patient on IV Zosyn. This has dual purpose. It is going to cover her for aspiration but also we will cover her urinary tract infection. We will send a urine culture and go from there. 3. Possible aspiration with pneumonia. She had a witnessed aspiration event according to her family. She does have these kind of hazy lower lobes which certainly could indicate she has a pneumonia. I think it is reasonable to cover her overnight with her acute encephalopathy and her white count and her fever of 101.2. We will cover her with Zosyn and vancomycin. We will obtain sputum cultures, blood cultures, check her procalcitonin and then go from there. 4. Recent right pontine CVA. Again I am going to do an MRI of her brain to look for any additional edema or stroke progression. 5. Black stools with heme-positive stools in the ER. I am a little hesitant to give her aspirin as she had some really dark stool here in the ER which was heme positive. I am going to type and cross and do serial hemoglobins and place her on a PPI. Her hemoglobin today is 15. We will see what it looks like tomorrow. If her hemoglobin is still around the 15 range, we could perhaps restart her aspirin. If we do and if she is not awake, she will likely have to get it rectally. 6. Diabetes mellitus. We will add sliding scale to her regimen. 7. History of lymphocytic colitis. 8. Dysphagia. She will likely need to have her swallowing re looked at again while she is here given that she has had an aspiration event. 9. Code status. Full code. 10.Hypertension poorly controlled. She is not able to take her oral medications. She was on metoprolol as well as triamterene HCTZ. I am going to place the Catapres patch. Then we will provide some p.r.n. Vasotec and hydralazine. Hopefully this can control her blood pressure. 11.Deep venous thrombosis prophylaxis. She does have positive stools and had 1 black stool in the ER. I am going to place her on SCDs for now until we are sure there was no real bleeding. 12.Disposition. Pending above. 13.Mild hyponatremia. I suspect this is not the reason for her mental status change. Her sodium is only 130, it was 136 when she left. I do not think this is enough of a drop to explain this. 14.Disposition pending above aforementioned plan and workup. History And Physical [address] [place]. [place]. [address] NAME: TERESITA PAREKH : 34 STATUS : ADM IN PAT#: [id number] AGE: 81 ADM/REG DATE : 09/24/16 MR#: [id number] REPORT SERV DATE: 09/24/16 DICTATED BY: KEVIN MAIER DATE: 09/24/16 REPORT STATUS : Draft TRANSCRIBED BY: VERNELL DATE: 09/24/16 NOEL/VERNELL Kevin Maier M.D. / [id number] CC: Jimmy Lorenz M.D. James Scott Manton, M.D. Nathan Mull IV, M.D.
--- NOTE | ~2016-09-24 | CN ---
Consultation Report [facility] [address] [place]. [address] NAME: TERESITA PAREKH : 34 STATUS : ADM IN PAT#: [id number] AGE: 81 ADM/REG DATE : 09/24/16 MR#: [id number] REPORT SERV DATE: 09/30/16 DICTATED BY: SIDRA LACEY DATE: 09/30/16 REPORT STATUS : Draft TRANSCRIBED BY: MODJulee DATE: 09/30/16 GI CONSULTATION DATE OF CONSULTATION: 09/30/2016 REASON FOR CONSULTATION: Evaluation and management of dysphagia, need for PEG tube. HISTORY OF PRESENT ILLNESS: Ms. Parekh is an 81-year-old female patient, known to Dr. Cruz, who presented to [facility] on 09/24 with a chief complaint of mental status change. She has a history of recently being in the hospital and seen by us on 09/18/2016 secondary to oropharyngeal dysphagia status post CVA. We had set her up for PEG tube to be done on 09/19, however, that was subsequently canceled as she had become more alert and was able to pass a swallow study. Initially, she had silent aspiration on her initial swallow evaluation secondary to the right-sided CVA that she had suffered with her left-sided weakness. She was subsequently discharged to rehab facility only to return on 09/24 with mental status change. Since then, she has had a swallowing study that she did pass, but she has intermittent episodes with encephalopathy, obtundation, inability to eat. The states she has not had anything to eat in roughly 16 days. She did have a fever at the [facility] of 101.2 degrees as well as some purulent-appearing urine. She was diagnosed with a UTI on admission. GI was consulted today to see her for consideration of PEG tube placement, the is at the bedside, I have discussed the procedure with him, he gives consent. We will tentatively plan on placing PEG tube on 10/01. I did discuss risks, benefits, alternatives, and complications with him to include, but not limited to risk of bleeding, perforation, infection, reaction to medications as well as cardiac and pulmonary side effects. They are agreeable to proceed. PAST MEDICAL HISTORY: Positive for recent right pontine CVA with resultant left hemiparesis, dysarthria, mild confusion and dysphagia, pulmonary fibrosis, lymphocytic colitis with diarrhea, type 2 diabetes, hypertension, hyperlipidemia, recurrent urinary tract infections, fibromyalgia, chronic pain, vertigo, pulmonary hypertension, depression, and shingles. PAST SURGICAL HISTORY: Cholecystectomy, hysterectomy, appendectomy, cervical spine surgery, knee surgery, cataract surgery, right total knee arthroplasty, tummy tuck, hemorrhoidectomy. ALLERGIES: SULFA AND TICLID. SOCIAL HISTORY: She is to her current and has been so for the last 26 years. No alcohol. No tobacco. No illicits. FAMILY HISTORY: Noncontributory from a GI standpoint. HOME MEDICATIONS: Albuterol, aspirin, Lipitor, Colace, Neurontin, Humalog, Synthroid, Claritin, Lopressor, Endocet, Klor-Con, Januvia, Restoril, tramadol, Maxzide. Consultation Report [address] [place]. [address] NAME: TERESITA PAREKH : 34 STATUS : ADM IN [facility]#: [id number] AGE: 81 ADM/REG DATE : 09/24/16 MR#: [id number] REPORT SERV DATE: 09/30/16 DICTATED BY: SIDRA LACEY DATE: 09/30/16 REPORT STATUS : Draft TRANSCRIBED BY: VERNELL DATE: 09/30/16 REVIEW OF SYSTEMS: Unable to be obtained secondary to the patient's mental status. PERTINENT LABORATORY DATA: Sodium 144, potassium 3.6, BUN is 38, creatinine 0.59. White count is 9.9, hemoglobin 11.1, hematocrit is 32.4, platelet count 457. PHYSICAL EXAMINATION: VITAL SIGNS: Temperature 97.5, pulse 73, respirations 17, and blood pressure 184/79. NEURO: Reveals an 81-year-old female, resting in bed. Her eyes are open. She can answer some yes and no questions. GENERAL: She is cooperative. She is in no obvious apparent distress. She has notable left sided weakness. She is awake with her eyes open. HEAD, EARS, EYES, NOSE, AND THROAT: Anicteric. Pupils are equal, round, reactive to light and accommodation. Normocephalic and atraumatic. NECK: No JVD. No palpable nodes. LUNGS: Diminished throughout with normal respiratory effort exhibited. CARDIOVASCULAR SYSTEM: Regular rate and rhythm. ABDOMEN: Soft, nondistended, nontender. Active bowel sounds in all four quadrants. EXTREMITIES: No edema. Normal distal pulses. SKIN: Warm, dry, and intact. ASSESSMENT: 1. Oropharyngeal dysphagia with history of silent aspiration. 2. Status post cerebrovascular accident with left-sided weakness. 3. Urinary tract infection with encephalopathy. PLAN: PEG tube placement on 10/01. Preprocedure Levaquin. We will follow. JESSI/VERNELL [place] ELIOT Calderon / [id number] CC: MD Ambrosio Cabrera M.D.
--- NOTE | ~2016-09-24 | EGD ---
EGD REPORT [facility] [address] [place]. [address] NAME: TERESITA PAREKH : 34 STATUS : ADM IN PAT#: [id number] AGE: 81 ADM/REG DATE : 09/24/16 MR#: [id number] REPORT SERV DATE: 10/03/16 DICTATED BY: EDSON SNIDER DATE: 10/03/16 REPORT STATUS : Draft TRANSCRIBED BY: [facility] DATE: 10/03/16 Endoscopy Center Patient Name: Teresita Parekh Date of : 1935 Attending MD: EDSON SNIDER MD Procedure Date No Time: 10/03/2016 Procedure: Upper GI endoscopy Indications: Place PEG because patient is unable to eat, Place PEG due to impaired swallowing Referring MD: MARILIA BLUM Medicines: Monitored Anesthesia Care Complications: No immediate complications. Estimated blood loss: Minimal. Procedure: Pre-Anesthesia Assessment: - ASA Grade Assessment: IV - A patient with severe systemic disease that is a constant threat to life. After obtaining informed consent, the endoscope was passed under direct vision. Throughout the procedure, the patient's blood pressure, pulse, and oxygen saturations were monitored continuously. The GIF [id number] was introduced through the mouth, and advanced to the second part of duodenum. The upper GI endoscopy was accomplished without difficulty. The patient tolerated the procedure well. Findings: No gross lesions were noted in the entire esophagus. No gross lesions were noted in the entire examined stomach. The patient was placed in the supine position for PEG placement. The stomach was insufflated to appose gastric and abdominal costello. A site was located in the body of the stomach with good transillumination and manual external pressure for placement. The abdominal wall was marked and prepped in a sterile manner. The area was anesthetized with 4 mL of 1% lidocaine. The trocar needle was introduced through the abdominal wall and into the stomach under direct endoscopic view. A snare was introduced through the endoscope and opened in the gastric lumen. The guide wire was passed through the trocar and into the open snare. The snare was closed around the guide wire. The endoscope and snare were removed, pulling the wire out through the mouth. A skin incision was made at the site of needle insertion. The externally removable 20 Fr EndoVive Safety gastrostomy tube was lubricated. The G-tube was passed over the guide wire through the mouth, and into the stomach. The trocar needle was removed, and the gastrostomy tube was pulled out from the stomach through the skin. The guide wire was removed, and the external bumper attached to the gastrostomy tube. The feeding tube was then cut to an appropriate EGD REPORT [address] [address] NAME: TERESITA PAREKH : 34 STATUS : ADM IN [facility]#: [id number] AGE: 81 ADM/REG DATE : 09/24/16 MR#: [id number] REPORT SERV DATE: 10/03/16 DICTATED BY: EDSON SNIDER DATE: 10/03/16 REPORT STATUS : Draft TRANSCRIBED BY: [employer] [facility] [employer] DATE: 10/03/16 length. The final position of the gastrostomy tube was confirmed by skin marking noted to be 3.5 cm at the external bumper. The final tension and compression of the abdominal wall by the PEG tube and external bumper were checked and revealed that the bumper was loose and lightly touching the skin. The feeding tube was capped, and the tube site was cleaned and dressed. Estimated blood loss was minimal. One non-bleeding cratered duodenal ulcer with pigmented material was found in the first part of the duodenum. The lesion was 10 mm in largest dimension. The exam was otherwise without abnormality. Impression: - Large duodenal ulcer. - An externally removable PEG placement was successfully completed. Recommendation: - Use Protonix (pantoprazole) 40 mg IV BID for 8 weeks. - Patient is at high risk for bleeding with anticoagulation - Consider holding aspirin for 1-2 weeks - Please follow the post-PEG recommendations including: Nutrition consult for formula and volume, antibiotic ointment to site, change dressing once per day, check site for bleeding q 4 hrs, clean site with soap and water daily and dry thoroughly, remove dressing after 2 weeks, NPO x4 hrs then water today, may use PEG today for meds and water and may use PEG tomorrow for feedings. Procedure Code(s): --- Professional --- 61170, Esophagogastroduodenoscopy, flexible, transoral; with directed placement of percutaneous gastrostomy tube Diagnosis Code(s): --- Professional --- K26.9, Duodenal ulcer, unspecified as acute or chronic, without hemorrhage or perforation R63.3, Feeding difficulties Z43.1, Encounter for attention to gastrostomy R13.10, Dysphagia, unspecified CPT copyright 2013 [employer]. All rights reserved. The codes documented in this report are preliminary and upon death surveys coder review may be revised to meet current compliance requirements. Edson Snider MD EDSON SNIDER MD EGD REPORT [address] [address] NAME: TERESITA PAREKH : 34 STATUS : ADM IN PAT#: [id number] AGE: 81 ADM/REG DATE : 09/24/16 MR#: [id number] REPORT SERV DATE: 10/03/16 DICTATED BY: EDSON SNIDER DATE: 10/03/16 REPORT STATUS : Draft TRANSCRIBED BY: [employer] DATE: 10/03/16 10/03/2016 10:34 AM This report has been signed electronically. Number of Addenda: 0 Note Initiated On: 10/03/2016 9:59 AM Scope Withdrawal Time 0 hours 0 minutes 0 seconds [address] [place] [address]
--- NOTE | ~2016-09-24 | IDS ---
Interim Discharge Summary [facility] [address] [place]. [address] NAME: TERESITA PAREKH : 34 STATUS : ADM IN [facility]#: [id number] AGE: 81 ADM/REG DATE : 09/24/16 MR#: [id number] REPORT SERV DATE: 09/30/16 DICTATED BY: SEGRIO BRADY DATE: 09/29/16 REPORT STATUS : Draft TRANSCRIBED BY: VERNELL DATE: 09/29/16 ADMISSION DATE: 09/24/2016 DISCHARGE DATE: Date of interim discharge is 09/29/2016. PROCEDURES DONE: 1. 09/24/2016, MRI of the brain shows there are two areas of infarct including tiny focus in the high posterior right frontal white matter and an additional larger focus in the white matter lateral to the thalamus on the left. Findings compatible with additional infarcts which may have developed since 09/15/2016, likely embolic. Stable areas of infarct in the upper rakesh in the right. No acute intracranial hemorrhage or mass effect noted. Continued moderate cortical volume loss and finding compatible with moderate chronic deep white matter ischemic changes. 2. 09/25/2015, ultrasound carotid, impression: Category 1 less than 50% luminal stenosis on the right as well as the left. CONSULT: 1. Neurology. 2. Cardiology. REASON FOR ADMISSION: Change in mental status. HISTORY OF HOSPITAL STAY: An 81-year-old white female with past medical history of recent right pontine CVA with left hemiparesis, dysarthria and confusion, history of pulmonary fibrosis, hypertension, hyperlipidemia, diabetes, depression presenting with change in mental status. The patient was initially discharged to [facility] and transferred back to [facility] for a change in mental status. The patient turned out to have a recent development of an embolic stroke on the right thalamus. More importantly, there is a question whether the infarct is embolic in nature. Ultrasound of the carotid was done which was negative. Cardiology was consulted for a SILVERIO. More importantly, the patient was started on heparin, but subsequently it had been turned off secondary to the patient developing epistaxis. Unfortunately, the epistaxis caused postnasal drainage that ended up causing nausea and vomiting for the patient. Therefore, the family was made aware of holding the heparin at this time because of the severity of the epistaxis. DIAGNOSES ON DISCHARGE: 1. Encephalopathy secondary to embolic cerebrovascular accident versus urinary tract infection. We will continue to attempt to find the source of the embolic cerebrovascular accident. SILVERIO is pending, per Cardiology. Regarding the patient's recent urinary tract infection, we will continue with cefazolin. Due to the patient's encephalopathy, the patient's p.o. intake has been severely decreased. We have also asked Gastroenterology for a possible PEG placement. 2. Embolic cerebrovascular accident secondary questionable source. Transesophageal echocardiogram is pending at this time. In addition, heparin has been on hold secondary to epistaxis causing nausea and vomiting via postnasal drip. Interim Discharge Summary [address] [address] NAME: TERESITA PAREKH : 34 STATUS : ADM IN [facility]#: [id number] AGE: 81 ADM/REG DATE : 09/24/16 MR#: [id number] REPORT SERV DATE: 09/30/16 DICTATED BY: SERGIO BRADY. DATE: 09/29/16 REPORT STATUS : Draft TRANSCRIBED BY: MODL DATE: 09/29/16 3. Diabetes type 2. Continue sliding scale. 4. Hypertension, currently stable. 5. Urinary tract infection secondary to Citrobacter. Continue cefazolin. FBClary/MODL Sergio Brady MD / [id number] CC: MD Ambrosio Cabrera M.D.
--- NOTE | ~2016-09-24 | DS ---
Discharge Summary [facility] [address] [place]. [address] NAME: TERESITA PAREKH : 34 STATUS : DIS IN PAT#: [id number] AGE: 81 ADM/REG DATE : 09/24/16 MR#: [id number] REPORT SERV DATE: 10/16/16 DICTATED BY: BELLO OROZCO DATE: 10/15/16 REPORT STATUS : Draft TRANSCRIBED BY: MODL DATE: 10/15/16 ADMISSION DATE: 09/24/2016 DISCHARGE DATE: 10/15/2016 DISCHARGE DIAGNOSES: 1. Acute right rakesh cerebrovascular accident in the setting of multiple additional cerebrovascular accidents and history of cerebrovascular accidents. 2. Encephalopathy, multifactorial, acute. 3. Oropharyngeal dysphagia with aspiration, currently on enteral nutrition by PEG. 4. Catheter-associated urinary tract infection. Culture showing Proteus bacteria. 5. Hypothyroidism with most recent TSH 14.200 on Synthroid therapy. 6. Diabetes type 2, most recent hemoglobin A1c 7.5. 7. Pulmonary infiltrates. 8. Hypokalemia and hypomagnesemia which is improved and resolved. 9. Chronic pain syndrome. 10.History of supraventricular tachycardia. DISCHARGE MEDICATIONS: Amlodipine 5 mg twice a day, aspirin 300 mg daily, Lipitor 80 mg daily, level 1 sliding scale with insulin every 6 hours, and 7 units subcutaneously scheduled every 6 hours, Synthroid 88 mcg daily, Mag-Ox 1200 mg every eight hours, metoprolol 25 mg twice a day, omeprazole suspension 40 mg b.i.d., potassium chloride 30 mEq every eight hours, DuoNeb inhaled every four hours, Levemir 24 units at bedtime, Tylenol 650 mg every 6 hours p.r.n., Duricef 1000 mg b.i.d. for six more days. HISTORY OF PRESENT ILLNESS: This is an 81-year-old, white female, who presented with a mental status change. Please see initial H and P of Dr. Daniela Maier. The patient is admitted to the Hospitalist Service for further evaluation and treatment. CONSULTANTS: During this admission include Neurology, Dr. Kae Yo, Josesito AVILES, ELIOT Matson. Please see the interim discharge summaries of Dr. Helms, April Fleming, LENY, and Dr. Jasper Blair. This discharge summary will simply cover today's date of 10/15/2016. EVALUATION IN HOSPITAL COURSE: The patient became approved for chcf facility at [facility] and was able to be transferred there today on 10/15/2016. Her antibiotics which initially had been IV Ancef for her Proteus urinary tract infection were changed over to p.o. Duricef. She continued on her current tube feeding of Glucerna at 60 mL an hour with flushes every 5 hours. She will need to have a BMP and a magnesium check in approximately 48 hours. She will keep her Tate catheter and we will continue her oxygen to maintain a sat greater than 94% currently. Physical Therapy, Occupational Therapy, Speech Therapy, and E-Stim Therapy will evaluate and treat the patient at her destination. She will also need to recheck of her TSH in four to six weeks given her elevation. TSH 14.200. Her mental status had been somewhat stable. She was able to answer simple questions. Follow commands by wiggling toes and with hand mess attendant crew. Her lab work on date of discharge shows sodium 137, potassium of 3.8, BUN of 15, creatinine 0.45. White blood cells of 8.5, hemoglobin 10.3, hematocrit 30.6. Discharge Summary [address] [address] NAME: TERESITA PAREKH : 34 STATUS : DIS [facility]#: [id number] AGE: 81 ADM/REG DATE : 09/24/16 MR#: [id number] REPORT SERV DATE: 10/16/16 DICTATED BY: BELLO OROZCO DATE: 10/15/16 REPORT STATUS : Draft TRANSCRIBED BY: MODL DATE: 10/15/16 Greater than 30 minutes was spent on this discharge for coordination of care, medication overview, and followup planning. BOBBY/VERNELL Bello Orozco NP / [id number] CC: Jimmy Garcia M.D.
[~2016-09-24 08:50] MED LIST changes: +*UNABLE1; +LOP50 PO; +M-CLEAR WC PO; +PRILOSEC OTC20 MG PO; +ULTRAM50 PO; +ZANTAC 150 PO
[2016-09-24 09:59] LABS: BASOPHILS 0.1 %; BASOPHILS ABSOLUTE 0.01 10/3/uL (0.0-0.16); EOSINOPHILS 0.9 %; HEMATOCRIT 41.7 % (36.0-48.0); HEMOGLOBIN 14.6 g/dL (12.0-16.0); IMMATURE GRANULOCYTES 0.2 %; IMMATURE GRANULOCYTES ABSOLUTE 0.02 10/3/uL (0.0-0.11); LYMPHOCYTES 5.1 %; LYMPHOCYTES ABSOLUTE 0.55 10/3/uL (0.67-4.30); MANUAL DIFF NO %; MEAN CORPUSCULAR HEMOGLOB 33.7 pg (26.0-34.0); MEAN CORPUSCULAR VOLUME 96.3 fL (80-100); MEAN PLATELET VOLUME 10.1 fL (9.2-13.0); MONOCYTES 10.3 %; MONOCYTES ABSOLUTE 1.11 10/3/uL (0.21-1.20); NEUTROPHILS 83.4 %; NEUTROPHILS ABSOLUTE 8.95 10/3/uL (2.02-8.40); PLATELET COUNT 333 10/3/uL (150-400); RBC DISTRIBUTION WIDTH 13.1 % (12.0-16.0); RED CELL COUNT 4.33 10/6/uL (4.0-5.6); WHITE BLOOD CELLS 10.7 10/3/uL (4.5-10.5)
[2016-09-24 10:11] LABS: BUN (BLOOD UREA NITROGEN) 17 MG/DL (6-23); CALCIUM, SERUM 8.6 MG/DL (8.5-10.4); CHLORIDE, SERUM 90 MMOL/L (96-112); CO2 (CARBON DIOXIDE) 28 MMOL/L (24-34); CREATININE 0.59 MG/DL (0.55-1.02); GFR AFRICAN AMERICAN 99 ML/MIN (>=60); GFR NON AFRICAN AMERICAN 85 ML/MIN (>=60); GLUCOSE, SERUM 150 MG/DL (60-99); POTASSIUM, SERUM 3.8 MMOL/L (3.5-5.3); SODIUM, SERUM 129 MMOL/L (135-148)
[2016-09-24 10:11] LABS: BASOPHILS 0.2 %; BASOPHILS ABSOLUTE 0.02 10/3/uL (0.0-0.16); EOSINOPHILS 0.8 %; HEMOGLOBIN 15.2 g/dL (12.0-16.0); IMMATURE GRANULOCYTES 0.3 %; IMMATURE GRANULOCYTES ABSOLUTE 0.04 10/3/uL (0.0-0.11); LYMPHOCYTES 7.1 %; LYMPHOCYTES ABSOLUTE 0.89 10/3/uL (0.67-4.30); MEAN CORPUS HGB CONC 35.3 g/dL (32.0-36.0); MEAN CORPUSCULAR HEMOGLOB 33.9 pg (26.0-34.0); MEAN PLATELET VOLUME 9.6 fL (9.2-13.0); MONOCYTES 5.6 %; PLATELET COUNT 313 10/3/uL (150-400); RED CELL COUNT 4.48 10/6/uL (4.0-5.6); WHITE BLOOD CELLS 12.5 10/3/uL (4.5-10.5)
[2016-09-24 10:12] LABS: MANUAL DIFF NO %
[2016-09-24 10:17] LABS: ALLENS TEST Pos; BE (BASE EXCESS) 2.7 MEQ/L (0 +/- 2.5); CARBOXYHEMOGLOBIN 1.4 % (0-3); DEVICE NC; HEMOBLOGIN CONTENT 16.3 G/DL (12-16); INSTRUMENT SERIAL # 8087; METHEMOGLOBIN 0.4 % (0-3); O2 CONTENT 21.6 VOL% (18-24); OPERATOR ID 32214; PCO2 (CO2 TENSION) 32 MMHG (35-45); PO2 (O2 TENSION) 77 MMHG (79-93); SAMPLE Arterial; pH 7.51 (7.37-7.43)
[2016-09-24 10:23] LABS: INTERNATIONAL NORMAL RATI 1.2 UNITS (-); PARTIAL THROMBO TIME 31.2 SEC (22.5-37.2); PROTIME (NOT ORD) 15.4 SEC (12.0-14.5)
[2016-09-24 10:27] LABS: BUN (BLOOD UREA NITROGEN) 17 MG/DL (6-23); CALCIUM, SERUM 8.4 MG/DL (8.5-10.4); CHLORIDE, SERUM 91 MMOL/L (96-112); CO2 (CARBON DIOXIDE) 26 MMOL/L (24-34); CREATININE 0.59 MG/DL (0.55-1.02); GFR AFRICAN AMERICAN 99 ML/MIN (>=60); GFR NON AFRICAN AMERICAN 85 ML/MIN (>=60); GLUCOSE, SERUM 156 MG/DL (60-99); POTASSIUM, SERUM 3.8 MMOL/L (3.5-5.3); SGOT(AST) 31 U/L (5-40); SGPT(ALT) 41 U/L (5-65); SODIUM, SERUM 130 MMOL/L (135-148); TOTAL PROTEIN 6.4 G/DL (6.0-8.5); TROPONIN I 0.03 NG/ML (<0.05)
[2016-09-24 10:28] LABS: A/G RATIO 0.7 (0.7-1.9); ACETAMINOPHEN LEVEL (TYLENOL) < 2.0 MCG/ML (10.0-20.0); ALBUMIN 2.6 G/DL (3.5-5.0); ALCOHOL < 10 MG/DL (0); ALKALINE PHOSPHATASE 20 U/L (45-117); GLOBULIN 3.8 G/DL (2.5-4.1); SALICYLATE < 1.7 MG/DL (-)
[2016-09-24 10:29] LABS: LACTATE 1.2 MMOL/L (0.3-2.4)
[2016-09-24 10:36] LABS: INFLUENZA A SCREEN NEGATIVE (NEGATIVE); INFLUENZA B SCREEN NEGATIVE (NEGATIVE)
[2016-09-24 11:09] LABS: ASCORBIC ACID (UR NOT ORDER) NEG (NEG); BILIRUBIN, URINE NEGATIVE (NEG); ER URINALYSIS TAT 0 Hrs 12 Mins; KETONE, URINE NEGATIVE (NEG); LEUKOCYTE ESTERASE(NOT OR LARGE (NEG); NITRITE (URINE) POS (NEG); WBC (NOT ORDERED) (RFLEX) > 182 (0-5)
[2016-09-24] MEDS ORDERED: ASA5GR PO (11:12)
[2016-09-24] MEDS ORDERED: LIPITOR80 MG PO (11:12)
[2016-09-24] MEDS ORDERED: CLARIT10 PO (11:12)
[2016-09-24] MEDS ORDERED: DSS PO (11:12)
[2016-09-24] MEDS ORDERED: NEUR100 PO (11:13)
[2016-09-24] MEDS ORDERED: SYN88 PO (11:14)
[2016-09-24] MEDS ORDERED: JANUVIA100 MG PO (11:14)
[2016-09-24] MEDS ORDERED: HUMALOG SC (11:14)
[2016-09-24] MEDS ORDERED: KLOR-CON M2020 MEQ PO (11:15)
[2016-09-24] MEDS ORDERED: LOP25 PO (11:15)
[2016-09-24] MEDS ORDERED: MAXZIDE PO (11:15)
[2016-09-24] MEDS ORDERED: ALBUTEROL0.083 % INH ×2 (11:16→11:18)
[2016-09-24] MEDS ORDERED: ENDOCET1 TAB PO (11:18)
[2016-09-24] MEDS ORDERED: ULTRAM50 PO (11:19)
[2016-09-24] MEDS ORDERED: REST15 PO (11:19)
[2016-09-24 11:28] LABS: AMPHETAMINES (NOT ORD) NEG (NEG); BARBITURATES (NOT ORDERED NEG (NEG); BENZODIAZEPINES (NOT ORD) NEG (NEG); CANNABINOIDS (THC) NEG (NEG); COCAINE (NOT ORDERED) NEG (NEG); OPIATES NEG (NEG); PHENCYCLIDINE(PCP) NEG (NEG); TRICYCLICS NEG (NEG)
[2016-09-24 18:57] LABS: HEMATOCRIT 41.8 % (36.0-48.0); HEMOGLOBIN 14.9 g/dL (12.0-16.0)
[2016-09-24 23:01] LABS: HEMATOCRIT 39.3 % (36.0-48.0)
[2016-09-25 04:16] LABS: BASOPHILS 0.2 %; BASOPHILS ABSOLUTE 0.02 10/3/uL (0.0-0.16); EOSINOPHILS 1.9 %; HEMATOCRIT 40.3 % (36.0-48.0); HEMOGLOBIN 14.1 g/dL (12.0-16.0); IMMATURE GRANULOCYTES 0.2 %; IMMATURE GRANULOCYTES ABSOLUTE 0.02 10/3/uL (0.0-0.11); LYMPHOCYTES 6.2 %; LYMPHOCYTES ABSOLUTE 0.64 10/3/uL (0.67-4.30); MEAN PLATELET VOLUME 9.6 fL (9.2-13.0); MONOCYTES 10.8 %; MONOCYTES ABSOLUTE 1.11 10/3/uL (0.21-1.20); NEUTROPHILS 80.7 %; NEUTROPHILS ABSOLUTE 8.33 10/3/uL (2.02-8.40); PLATELET COUNT 260 10/3/uL (150-400); RBC DISTRIBUTION WIDTH 12.9 % (12.0-16.0); RED CELL COUNT 4.03 10/6/uL (4.0-5.6); WHITE BLOOD CELLS 10.3 10/3/uL (4.5-10.5)
[2016-09-25 04:17] LABS: MANUAL DIFF NO %
[2016-09-25 04:56] LABS: BUN (BLOOD UREA NITROGEN) 17 MG/DL (6-23); CHLORIDE, SERUM 96 MMOL/L (96-112); CO2 (CARBON DIOXIDE) 26 MMOL/L (24-34); CREATININE 0.54 MG/DL (0.55-1.02); GFR AFRICAN AMERICAN 102 ML/MIN (>=60); GFR NON AFRICAN AMERICAN 88 ML/MIN (>=60); GLUCOSE, SERUM 132 MG/DL (60-99); POTASSIUM, SERUM 3.4 MMOL/L (3.5-5.3); SODIUM, SERUM 134 MMOL/L (135-148)
[2016-09-25 04:59] LABS: FOLATE 14.1 NG/ML (>5.2)
[2016-09-25 08:01] LABS: PHOSPHORUS, SERUM 3.1 MG/DL (2.5-4.5)
[2016-09-25 09:57] LABS: HEMATOCRIT 38.7 % (36.0-48.0); HEMOGLOBIN 13.2 g/dL (12.0-16.0)
[2016-09-26 07:39] LABS: BASOPHILS 0.2 %; BASOPHILS ABSOLUTE 0.02 10/3/uL (0.0-0.16); EOSINOPHILS 2.9 %; EOSINOPHILS ABSOLUTE 0.33 10/3/uL (0.0-0.53); HEMATOCRIT 36.5 % (36.0-48.0); HEMOGLOBIN 12.7 g/dL (12.0-16.0); IMMATURE GRANULOCYTES 0.4 %; IMMATURE GRANULOCYTES ABSOLUTE 0.04 10/3/uL (0.0-0.11); LYMPHOCYTES 5.4 %; LYMPHOCYTES ABSOLUTE 0.61 10/3/uL (0.67-4.30); MEAN CORPUS HGB CONC 34.8 g/dL (32.0-36.0); MEAN CORPUSCULAR HEMOGLOB 34.9 pg (26.0-34.0); MEAN CORPUSCULAR VOLUME 100.3 fL (80-100); MEAN PLATELET VOLUME 9.9 fL (9.2-13.0); MONOCYTES 10.4 %; MONOCYTES ABSOLUTE 1.18 10/3/uL (0.21-1.20); NEUTROPHILS 80.7 %; NEUTROPHILS ABSOLUTE 9.16 10/3/uL (2.02-8.40); PLATELET COUNT 307 10/3/uL (150-400); RBC DISTRIBUTION WIDTH 12.9 % (12.0-16.0); RED CELL COUNT 3.64 10/6/uL (4.0-5.6); WHITE BLOOD CELLS 11.3 10/3/uL (4.5-10.5)
[2016-09-26 07:41] LABS: MANUAL DIFF NO %
[2016-09-26 07:53] LABS: A/G RATIO 0.7 (0.7-1.9); ALBUMIN 2.1 G/DL (3.5-5.0); ALKALINE PHOSPHATASE 18 U/L (45-117); BUN (BLOOD UREA NITROGEN) 14 MG/DL (6-23); CALCIUM, SERUM 7.4 MG/DL (8.5-10.4); CHLORIDE, SERUM 97 MMOL/L (96-112); CO2 (CARBON DIOXIDE) 25 MMOL/L (24-34); CREATININE 0.55 MG/DL (0.55-1.02); GFR AFRICAN AMERICAN 101 ML/MIN (>=60); GFR NON AFRICAN AMERICAN 87 ML/MIN (>=60); GLOBULIN 3.2 G/DL (2.5-4.1); GLUCOSE, SERUM 130 MG/DL (60-99); PHOSPHORUS, SERUM 2.6 MG/DL (2.5-4.5); POTASSIUM, SERUM 3.4 MMOL/L (3.5-5.3); SGOT(AST) 61 U/L (5-40); SGPT(ALT) 53 U/L (5-65); SODIUM, SERUM 136 MMOL/L (135-148); TOTAL BILIRUBIN 0.7 MG/DL (0-1.2); TOTAL PROTEIN 5.3 G/DL (6.0-8.5)
[2016-09-26 07:55] LABS: C-REACTIVE PROTEIN 55.8 MG/L (<8.0)
[2016-09-26 08:35] LABS: SED RATE 41 MM/HR (0-20)
[2016-09-27 05:34] LABS: A/G RATIO 0.6 (0.7-1.9); ALBUMIN 2.1 G/DL (3.5-5.0); ALKALINE PHOSPHATASE 19 U/L (45-117); BUN (BLOOD UREA NITROGEN) 16 MG/DL (6-23); CALCIUM, SERUM 7.9 MG/DL (8.5-10.4); CHLORIDE, SERUM 96 MMOL/L (96-112); CO2 (CARBON DIOXIDE) 24 MMOL/L (24-34); GFR AFRICAN AMERICAN 112 ML/MIN (>=60); GFR NON AFRICAN AMERICAN 97 ML/MIN (>=60); GLOBULIN 3.6 G/DL (2.5-4.1); POTASSIUM, SERUM 3.3 MMOL/L (3.5-5.3); SGPT(ALT) 52 U/L (5-65); SODIUM, SERUM 133 MMOL/L (135-148); TOTAL BILIRUBIN 0.6 MG/DL (0-1.2); TOTAL PROTEIN 5.7 G/DL (6.0-8.5)
[2016-09-27 05:35] LABS: C-REACTIVE PROTEIN 81.7 MG/L (<8.0); GLUCOSE, SERUM 163 MG/DL (60-99); PHOSPHORUS, SERUM 1.7 MG/DL (2.5-4.5)
[2016-09-27 05:36] LABS: SGOT(AST) 53 U/L (5-40)
[2016-09-27 05:51] LABS: BASOPHILS 0.2 %; BASOPHILS ABSOLUTE 0.03 10/3/uL (0.0-0.16); EOSINOPHILS 1.7 %; EOSINOPHILS ABSOLUTE 0.23 10/3/uL (0.0-0.53); HEMATOCRIT 36.5 % (36.0-48.0); HEMOGLOBIN 12.7 g/dL (12.0-16.0); IMMATURE GRANULOCYTES 0.1 %; IMMATURE GRANULOCYTES ABSOLUTE 0.01 10/3/uL (0.0-0.11); LYMPHOCYTES 11.5 %; LYMPHOCYTES ABSOLUTE 1.58 10/3/uL (0.67-4.30); MEAN CORPUS HGB CONC 34.8 g/dL (32.0-36.0); MEAN CORPUSCULAR VOLUME 97.9 fL (80-100); MEAN PLATELET VOLUME 9.8 fL (9.2-13.0); MONOCYTES 3.4 %; MONOCYTES ABSOLUTE 0.47 10/3/uL (0.21-1.20); NEUTROPHILS 83.1 %; NEUTROPHILS ABSOLUTE 11.41 10/3/uL (2.02-8.40); PLATELET COUNT 320 10/3/uL (150-400); RED CELL COUNT 3.73 10/6/uL (4.0-5.6); WHITE BLOOD CELLS 13.7 10/3/uL (4.5-10.5)
[2016-09-27 05:52] LABS: MANUAL DIFF NO %
[2016-09-28 06:43] LABS: BASOPHILS 0.1 %; BASOPHILS ABSOLUTE 0.01 10/3/uL (0.0-0.16); EOSINOPHILS 0.1 %; EOSINOPHILS ABSOLUTE 0.01 10/3/uL (0.0-0.53); HEMATOCRIT 33.8 % (36.0-48.0); HEMOGLOBIN 11.9 g/dL (12.0-16.0); IMMATURE GRANULOCYTES 0.3 %; IMMATURE GRANULOCYTES ABSOLUTE 0.05 10/3/uL (0.0-0.11); LYMPHOCYTES 7.8 %; LYMPHOCYTES ABSOLUTE 1.15 10/3/uL (0.67-4.30); MEAN CORPUS HGB CONC 35.2 g/dL (32.0-36.0); MEAN CORPUSCULAR HEMOGLOB 34.3 pg (26.0-34.0); MEAN CORPUSCULAR VOLUME 97.4 fL (80-100); MEAN PLATELET VOLUME 9.6 fL (9.2-13.0); MONOCYTES 4.3 %; MONOCYTES ABSOLUTE 0.63 10/3/uL (0.21-1.20); NEUTROPHILS 87.4 %; NEUTROPHILS ABSOLUTE 12.82 10/3/uL (2.02-8.40); PLATELET COUNT 391 10/3/uL (150-400); RED CELL COUNT 3.47 10/6/uL (4.0-5.6); WHITE BLOOD CELLS 14.7 10/3/uL (4.5-10.5)
[2016-09-28 06:44] LABS: MANUAL DIFF NO %
[2016-09-28 06:57] LABS: A/G RATIO 0.5 (0.7-1.9); ALKALINE PHOSPHATASE 19 U/L (45-117); CALCIUM, SERUM 7.8 MG/DL (8.5-10.4); CHLORIDE, SERUM 90 MMOL/L (96-112); CREATININE 0.54 MG/DL (0.55-1.02); GFR AFRICAN AMERICAN 102 ML/MIN (>=60); GFR NON AFRICAN AMERICAN 88 ML/MIN (>=60); GLOBULIN 3.8 G/DL (2.5-4.1); GLUCOSE, SERUM 161 MG/DL (60-99); POTASSIUM, SERUM 3.2 MMOL/L (3.5-5.3); SGOT(AST) 29 U/L (5-40); SGPT(ALT) 34 U/L (5-65); SODIUM, SERUM 132 MMOL/L (135-148); TOTAL BILIRUBIN 0.4 MG/DL (0-1.2); TOTAL PROTEIN 5.8 G/DL (6.0-8.5)
[2016-09-28 06:58] LABS: BUN (BLOOD UREA NITROGEN) 21 MG/DL (6-23); CO2 (CARBON DIOXIDE) 31 MMOL/L (24-34); PHOSPHORUS, SERUM 2.3 MG/DL (2.5-4.5)
[2016-09-28 07:43] LABS: PROCALCITONIN 0.27 ng/mL (<0.5)
[2016-09-28 08:34] LABS: SED RATE 83 MM/HR (0-20)
[2016-09-28 21:23] LABS: PHOSPHORUS, SERUM 2.9 MG/DL (2.5-4.5)
[2016-09-28 21:24] LABS: POTASSIUM, SERUM 4.1 MMOL/L (3.5-5.3)
[2016-09-29 06:49] LABS: BASOPHILS 0 %; EOSINOPHILS 0 %; HEMATOCRIT 32.3 % (36.0-48.0); IMMATURE GRANULOCYTES 0.3 %; IMMATURE GRANULOCYTES ABSOLUTE 0.03 10/3/uL (0.0-0.11); LYMPHOCYTES 3.7 %; LYMPHOCYTES ABSOLUTE 0.38 10/3/uL (0.67-4.30); MEAN CORPUS HGB CONC 34.1 g/dL (32.0-36.0); MEAN CORPUSCULAR HEMOGLOB 33.5 pg (26.0-34.0); MEAN CORPUSCULAR VOLUME 98.5 fL (80-100); MEAN PLATELET VOLUME 9.4 fL (9.2-13.0); MONOCYTES 0.3 %; MONOCYTES ABSOLUTE 0.03 10/3/uL (0.21-1.20); NEUTROPHILS 95.7 %; NEUTROPHILS ABSOLUTE 9.79 10/3/uL (2.02-8.40); PLATELET COUNT 378 10/3/uL (150-400); RBC DISTRIBUTION WIDTH 12.9 % (12.0-16.0); RED CELL COUNT 3.28 10/6/uL (4.0-5.6); WHITE BLOOD CELLS 10.2 10/3/uL (4.5-10.5)
[2016-09-29 06:51] LABS: MANUAL DIFF NO %
[2016-09-29 07:02] LABS: CALCIUM, SERUM 7.9 MG/DL (8.5-10.4); CHLORIDE, SERUM 99 MMOL/L (96-112); CO2 (CARBON DIOXIDE) 30 MMOL/L (24-34); CREATININE 0.52 MG/DL (0.55-1.02); GFR AFRICAN AMERICAN 103 ML/MIN (>=60); GFR NON AFRICAN AMERICAN 89 ML/MIN (>=60); PHOSPHORUS, SERUM 2.4 MG/DL (2.5-4.5); POTASSIUM, SERUM 3.7 MMOL/L (3.5-5.3)
[2016-09-29 07:03] LABS: BUN (BLOOD UREA NITROGEN) 30 MG/DL (6-23); GLUCOSE, SERUM 194 MG/DL (60-99); SODIUM, SERUM 139 MMOL/L (135-148)
[2016-09-30 04:20] LABS: A/G RATIO 0.6 (0.7-1.9); ALBUMIN 2.1 G/DL (3.5-5.0); ALKALINE PHOSPHATASE 17 U/L (45-117); BUN (BLOOD UREA NITROGEN) 38 MG/DL (6-23); CALCIUM, SERUM 8.1 MG/DL (8.5-10.4); CHLORIDE, SERUM 104 MMOL/L (96-112); CO2 (CARBON DIOXIDE) 29 MMOL/L (24-34); CREATININE 0.59 MG/DL (0.55-1.02); GFR AFRICAN AMERICAN 99 ML/MIN (>=60); GFR NON AFRICAN AMERICAN 85 ML/MIN (>=60); GLOBULIN 3.4 G/DL (2.5-4.1); GLUCOSE, SERUM 217 MG/DL (60-99); PHOSPHORUS, SERUM 2.6 MG/DL (2.5-4.5); POTASSIUM, SERUM 3.6 MMOL/L (3.5-5.3); RHEUMATOID FACTOR QUANT < 10 IU/ML (0-15); SGOT(AST) 35 U/L (5-40); SGPT(ALT) 36 U/L (5-65); SODIUM, SERUM 144 MMOL/L (135-148); TOTAL BILIRUBIN 0.3 MG/DL (0-1.2); TOTAL PROTEIN 5.5 G/DL (6.0-8.5)
[2016-09-30 04:22] LABS: BASOPHILS 0.1 %; BASOPHILS ABSOLUTE 0.01 10/3/uL (0.0-0.16); EOSINOPHILS 0 %; HEMATOCRIT 32.4 % (36.0-48.0); HEMOGLOBIN 11.1 g/dL (12.0-16.0); IMMATURE GRANULOCYTES 0.3 %; IMMATURE GRANULOCYTES ABSOLUTE 0.03 10/3/uL (0.0-0.11); LYMPHOCYTES 6.2 %; LYMPHOCYTES ABSOLUTE 0.61 10/3/uL (0.67-4.30); MEAN CORPUS HGB CONC 34.3 g/dL (32.0-36.0); MEAN CORPUSCULAR HEMOGLOB 34.2 pg (26.0-34.0); MEAN CORPUSCULAR VOLUME 99.7 fL (80-100); MEAN PLATELET VOLUME 9.4 fL (9.2-13.0); NEUTROPHILS 92.4 %; NEUTROPHILS ABSOLUTE 9.11 10/3/uL (2.02-8.40); PLATELET COUNT 457 10/3/uL (150-400); RED CELL COUNT 3.25 10/6/uL (4.0-5.6); WHITE BLOOD CELLS 9.9 10/3/uL (4.5-10.5)
[2016-09-30 04:34] LABS: MANUAL DIFF NO %
[2016-09-30 07:37] LABS: ANA TITER <1:40 TITER
[2016-10-01 07:23] LABS: BASOPHILS 0.1 %; BASOPHILS ABSOLUTE 0.01 10/3/uL (0.0-0.16); EOSINOPHILS 0 %; HEMATOCRIT 35.1 % (36.0-48.0); IMMATURE GRANULOCYTES 2.4 %; IMMATURE GRANULOCYTES ABSOLUTE 0.25 10/3/uL (0.0-0.11); LYMPHOCYTES 5.9 %; MEAN CORPUS HGB CONC 34.2 g/dL (32.0-36.0); MEAN CORPUSCULAR HEMOGLOB 34.2 pg (26.0-34.0); MEAN PLATELET VOLUME 9.1 fL (9.2-13.0); MONOCYTES 2.6 %; MONOCYTES ABSOLUTE 0.27 10/3/uL (0.21-1.20); PLATELET COUNT 515 10/3/uL (150-400); RED CELL COUNT 3.51 10/6/uL (4.0-5.6); WHITE BLOOD CELLS 10.2 10/3/uL (4.5-10.5)
[2016-10-01 07:24] LABS: MANUAL DIFF NO %
[2016-10-01 07:28] LABS: INTERNATIONAL NORMAL RATI 2.7 UNITS (-)
[2016-10-01 07:30] LABS: PROTIME (NOT ORD) 28.3 SEC (12.0-14.5)
[2016-10-01 07:48] LABS: BUN (BLOOD UREA NITROGEN) 32 MG/DL (6-23); CALCIUM, SERUM 7.8 MG/DL (8.5-10.4); CHLORIDE, SERUM 98 MMOL/L (96-112); CO2 (CARBON DIOXIDE) 30 MMOL/L (24-34); CREATININE 0.49 MG/DL (0.55-1.02); GFR AFRICAN AMERICAN 105 ML/MIN (>=60); GFR NON AFRICAN AMERICAN 91 ML/MIN (>=60); GLUCOSE, SERUM 271 MG/DL (60-99); POTASSIUM, SERUM 2.6 MMOL/L (3.5-5.3); SODIUM, SERUM 142 MMOL/L (135-148)
[2016-10-01 10:56] LABS: ANTI SS-A NEGATIVE (NEGATIVE)
[2016-10-01 11:25] LABS: ANTI SS-B NEGATIVE (NEGATIVE)
[2016-10-01 12:29] LABS: PHOSPHORUS, SERUM 1.8 MG/DL (2.5-4.5)
[2016-10-01 16:57] LABS: INTERNATIONAL NORMAL RATI 2.8 UNITS (-); PROTIME (NOT ORD) 28.9 SEC (12.0-14.5)
[2016-10-02 03:25] LABS: BASOPHILS 0.1 %; BASOPHILS ABSOLUTE 0.01 10/3/uL (0.0-0.16); EOSINOPHILS 0 %; HEMATOCRIT 32.4 % (36.0-48.0); IMMATURE GRANULOCYTES ABSOLUTE 0.07 10/3/uL (0.0-0.11); LYMPHOCYTES 6.2 %; LYMPHOCYTES ABSOLUTE 0.44 10/3/uL (0.67-4.30); MEAN CORPUSCULAR HEMOGLOB 34.3 pg (26.0-34.0); MEAN CORPUSCULAR VOLUME 100.9 fL (80-100); MEAN PLATELET VOLUME 9.1 fL (9.2-13.0); MONOCYTES 4.2 %; NEUTROPHILS 88.5 %; NEUTROPHILS ABSOLUTE 6.32 10/3/uL (2.02-8.40); PLATELET COUNT 452 10/3/uL (150-400); RED CELL COUNT 3.21 10/6/uL (4.0-5.6); WHITE BLOOD CELLS 7.1 10/3/uL (4.5-10.5)
[2016-10-02 03:26] LABS: MANUAL DIFF NO %
[2016-10-02 03:29] LABS: INTERNATIONAL NORMAL RATI 2.2 UNITS (-); PROTIME (NOT ORD) 23.9 SEC (12.0-14.5)
[2016-10-02 03:38] LABS: CALCIUM, SERUM 7.3 MG/DL (8.5-10.4); CHLORIDE, SERUM 99 MMOL/L (96-112); CREATININE 0.48 MG/DL (0.55-1.02); GFR AFRICAN AMERICAN 106 ML/MIN (>=60); GFR NON AFRICAN AMERICAN 91 ML/MIN (>=60); GLUCOSE, SERUM 239 MG/DL (60-99); SODIUM, SERUM 145 MMOL/L (135-148)
[2016-10-02 03:39] LABS: BUN (BLOOD UREA NITROGEN) 28 MG/DL (6-23); CO2 (CARBON DIOXIDE) 35 MMOL/L (24-34); POTASSIUM, SERUM 2.5 MMOL/L (3.5-5.3)
[2016-10-02 07:17] LABS: PHOSPHORUS, SERUM 2.5 MG/DL (2.5-4.5)
[2016-10-03 05:19] LABS: BASOPHILS 0 %; EOSINOPHILS 0 %; HEMATOCRIT 32.3 % (36.0-48.0); HEMOGLOBIN 10.6 g/dL (12.0-16.0); IMMATURE GRANULOCYTES 0.7 %; IMMATURE GRANULOCYTES ABSOLUTE 0.07 10/3/uL (0.0-0.11); LYMPHOCYTES 5.7 %; LYMPHOCYTES ABSOLUTE 0.54 10/3/uL (0.67-4.30); MEAN CORPUS HGB CONC 32.8 g/dL (32.0-36.0); MEAN CORPUSCULAR HEMOGLOB 33.2 pg (26.0-34.0); MEAN CORPUSCULAR VOLUME 101.3 fL (80-100); MEAN PLATELET VOLUME 9.2 fL (9.2-13.0); MONOCYTES ABSOLUTE 0.19 10/3/uL (0.21-1.20); NEUTROPHILS 91.6 %; NEUTROPHILS ABSOLUTE 8.75 10/3/uL (2.02-8.40); PLATELET COUNT 417 10/3/uL (150-400); RBC DISTRIBUTION WIDTH 13.1 % (12.0-16.0); RED CELL COUNT 3.19 10/6/uL (4.0-5.6); WHITE BLOOD CELLS 9.6 10/3/uL (4.5-10.5)
[2016-10-03 05:21] LABS: MANUAL DIFF NO %
[2016-10-03 05:22] LABS: INTERNATIONAL NORMAL RATI 1.4 UNITS (-)
[2016-10-03 05:23] LABS: PROTIME (NOT ORD) 17.1 SEC (12.0-14.5)
[2016-10-03 05:27] LABS: BUN (BLOOD UREA NITROGEN) 27 MG/DL (6-23); CHLORIDE, SERUM 100 MMOL/L (96-112); CO2 (CARBON DIOXIDE) 33 MMOL/L (24-34); CREATININE 0.48 MG/DL (0.55-1.02); GFR AFRICAN AMERICAN 106 ML/MIN (>=60); GFR NON AFRICAN AMERICAN 91 ML/MIN (>=60); GLUCOSE, SERUM 224 MG/DL (60-99); SODIUM, SERUM 142 MMOL/L (135-148)
[2016-10-03 05:29] LABS: CALCIUM, SERUM 6.9 MG/DL (8.5-10.4)
[2016-10-03 14:05] LABS: POTASSIUM, SERUM 2.9 MMOL/L (3.5-5.3)
[2016-10-03 18:28] LABS: ALKALINE PHOSPHATASE 17 U/L (45-117); PHOSPHORUS, SERUM 2.4 MG/DL (2.5-4.5); PREALBUMIN 24.6 MG/DL (17.0-43.0); SGOT(AST) 36 U/L (5-40); SGPT(ALT) 46 U/L (5-65)
[2016-10-03 18:49] LABS: BUN (BLOOD UREA NITROGEN) 26 MG/DL (6-23); CALCIUM, SERUM 7.2 MG/DL (8.5-10.4); CHLORIDE, SERUM 99 MMOL/L (96-112); CO2 (CARBON DIOXIDE) 31 MMOL/L (24-34); CREATININE 0.47 MG/DL (0.55-1.02); GFR AFRICAN AMERICAN 107 ML/MIN (>=60); GFR NON AFRICAN AMERICAN 92 ML/MIN (>=60); GLUCOSE, SERUM 211 MG/DL (60-99); SODIUM, SERUM 141 MMOL/L (135-148)
[2016-10-03 18:50] LABS: A/G RATIO 0.8 (0.7-1.9); ALBUMIN 2.5 G/DL (3.5-5.0); GLOBULIN 3.1 G/DL (2.5-4.1); TOTAL PROTEIN 5.6 G/DL (6.0-8.5)
[2016-10-04 04:33] LABS: BASOPHILS 0 %; EOSINOPHILS 0 %; HEMATOCRIT 32.6 % (36.0-48.0); HEMOGLOBIN 11.4 g/dL (12.0-16.0); IMMATURE GRANULOCYTES 0.8 %; IMMATURE GRANULOCYTES ABSOLUTE 0.11 10/3/uL (0.0-0.11); LYMPHOCYTES 5.5 %; LYMPHOCYTES ABSOLUTE 0.72 10/3/uL (0.67-4.30); MEAN CORPUSCULAR HEMOGLOB 34.8 pg (26.0-34.0); MEAN CORPUSCULAR VOLUME 99.4 fL (80-100); MEAN PLATELET VOLUME 9.4 fL (9.2-13.0); MONOCYTES 3.7 %; MONOCYTES ABSOLUTE 0.49 10/3/uL (0.21-1.20); NEUTROPHILS ABSOLUTE 11.82 10/3/uL (2.02-8.40); PLATELET COUNT 440 10/3/uL (150-400); RBC DISTRIBUTION WIDTH 12.9 % (12.0-16.0); RED CELL COUNT 3.28 10/6/uL (4.0-5.6); WHITE BLOOD CELLS 13.1 10/3/uL (4.5-10.5)
[2016-10-04 04:37] LABS: MANUAL DIFF NO %
[2016-10-04 04:51] LABS: BUN (BLOOD UREA NITROGEN) 25 MG/DL (6-23); CHLORIDE, SERUM 98 MMOL/L (96-112); CO2 (CARBON DIOXIDE) 31 MMOL/L (24-34); CREATININE 0.42 MG/DL (0.55-1.02); GFR AFRICAN AMERICAN 111 ML/MIN (>=60); GFR NON AFRICAN AMERICAN 95 ML/MIN (>=60); GLUCOSE, SERUM 225 MG/DL (60-99); POTASSIUM, SERUM 3.2 MMOL/L (3.5-5.3); SODIUM, SERUM 140 MMOL/L (135-148)
[2016-10-05 07:47] LABS: BASOPHILS 0 %; EOSINOPHILS 0.5 %; EOSINOPHILS ABSOLUTE 0.06 10/3/uL (0.0-0.53); HEMATOCRIT 30.9 % (36.0-48.0); HEMOGLOBIN 10.5 g/dL (12.0-16.0); IMMATURE GRANULOCYTES 0.5 %; IMMATURE GRANULOCYTES ABSOLUTE 0.05 10/3/uL (0.0-0.11); LYMPHOCYTES 5.7 %; LYMPHOCYTES ABSOLUTE 0.62 10/3/uL (0.67-4.30); MEAN CORPUSCULAR HEMOGLOB 34.3 pg (26.0-34.0); MEAN PLATELET VOLUME 9.5 fL (9.2-13.0); MONOCYTES 3.4 %; MONOCYTES ABSOLUTE 0.37 10/3/uL (0.21-1.20); NEUTROPHILS 89.9 %; NEUTROPHILS ABSOLUTE 9.81 10/3/uL (2.02-8.40); PLATELET COUNT 348 10/3/uL (150-400); RBC DISTRIBUTION WIDTH 13.5 % (12.0-16.0); RED CELL COUNT 3.06 10/6/uL (4.0-5.6); WHITE BLOOD CELLS 10.9 10/3/uL (4.5-10.5)
[2016-10-05 07:49] LABS: MANUAL DIFF NO %
[2016-10-05 08:06] LABS: PREALBUMIN 21.6 MG/DL (17.0-43.0)
[2016-10-05 08:08] LABS: A/G RATIO 0.8 (0.7-1.9); BUN (BLOOD UREA NITROGEN) 24 MG/DL (6-23); CHLORIDE, SERUM 101 MMOL/L (96-112); CO2 (CARBON DIOXIDE) 30 MMOL/L (24-34); CREATININE 0.48 MG/DL (0.55-1.02); GFR AFRICAN AMERICAN 106 ML/MIN (>=60); GFR NON AFRICAN AMERICAN 91 ML/MIN (>=60); GLOBULIN 2.6 G/DL (2.5-4.1); GLUCOSE, SERUM 215 MG/DL (60-99); PHOSPHORUS, SERUM 1.9 MG/DL (2.5-4.5); POTASSIUM, SERUM 3.9 MMOL/L (3.5-5.3); SGOT(AST) 45 U/L (5-40); SGPT(ALT) 40 U/L (5-65); SODIUM, SERUM 141 MMOL/L (135-148); TOTAL BILIRUBIN 0.7 MG/DL (0-1.2); TOTAL PROTEIN 4.6 G/DL (6.0-8.5)
[2016-10-05 08:11] LABS: ALKALINE PHOSPHATASE 25 U/L (45-117); CALCIUM, SERUM 6.7 MG/DL (8.5-10.4)
[2016-10-06 05:31] LABS: BASOPHILS 0.1 %; BASOPHILS ABSOLUTE 0.01 10/3/uL (0.0-0.16); EOSINOPHILS ABSOLUTE 0.17 10/3/uL (0.0-0.53); HEMOGLOBIN 12.5 g/dL (12.0-16.0); IMMATURE GRANULOCYTES 0.5 %; IMMATURE GRANULOCYTES ABSOLUTE 0.08 10/3/uL (0.0-0.11); LYMPHOCYTES 4.4 %; LYMPHOCYTES ABSOLUTE 0.73 10/3/uL (0.67-4.30); MEAN CORPUS HGB CONC 34.6 g/dL (32.0-36.0); MEAN CORPUSCULAR HEMOGLOB 34.9 pg (26.0-34.0); MEAN CORPUSCULAR VOLUME 100.8 fL (80-100); MEAN PLATELET VOLUME 9.7 fL (9.2-13.0); NEUTROPHILS ABSOLUTE 15.19 10/3/uL (2.02-8.40); PLATELET COUNT 379 10/3/uL (150-400); RBC DISTRIBUTION WIDTH 13.4 % (12.0-16.0); RED CELL COUNT 3.58 10/6/uL (4.0-5.6)
[2016-10-06 05:34] LABS: HEMATOCRIT 36.1 % (36.0-48.0); MANUAL DIFF NO %; WHITE BLOOD CELLS 16.7 10/3/uL (4.5-10.5)
[2016-10-06 05:45] LABS: A/G RATIO 0.8 (0.7-1.9); ALBUMIN 2.3 G/DL (3.5-5.0); ALKALINE PHOSPHATASE 24 U/L (45-117); CALCIUM, SERUM 7.2 MG/DL (8.5-10.4); CHLORIDE, SERUM 96 MMOL/L (96-112); CO2 (CARBON DIOXIDE) 28 MMOL/L (24-34); CREATININE 0.45 MG/DL (0.55-1.02); GFR AFRICAN AMERICAN 108 ML/MIN (>=60); GFR NON AFRICAN AMERICAN 93 ML/MIN (>=60); GLOBULIN 2.8 G/DL (2.5-4.1); GLUCOSE, SERUM 237 MG/DL (60-99); PHOSPHORUS, SERUM 2.2 MG/DL (2.5-4.5); POTASSIUM, SERUM 3.4 MMOL/L (3.5-5.3); PREALBUMIN 23.1 MG/DL (17.0-43.0); SGOT(AST) 66 U/L (5-40); SGPT(ALT) 45 U/L (5-65); SODIUM, SERUM 135 MMOL/L (135-148); TOTAL BILIRUBIN 0.8 MG/DL (0-1.2); TOTAL PROTEIN 5.1 G/DL (6.0-8.5)
[2016-10-06 05:50] LABS: BUN (BLOOD UREA NITROGEN) 16 MG/DL (6-23)
[2016-10-06 19:57] LABS: POTASSIUM, SERUM 3.7 MMOL/L (3.5-5.3)
[2016-10-07 04:53] LABS: A/G RATIO 0.7 (0.7-1.9); ALKALINE PHOSPHATASE 22 U/L (45-117); BUN (BLOOD UREA NITROGEN) 15 MG/DL (6-23); CHLORIDE, SERUM 99 MMOL/L (96-112); CO2 (CARBON DIOXIDE) 31 MMOL/L (24-34); CREATININE 0.45 MG/DL (0.55-1.02); GFR AFRICAN AMERICAN 108 ML/MIN (>=60); GFR NON AFRICAN AMERICAN 93 ML/MIN (>=60); GLOBULIN 2.5 G/DL (2.5-4.1); POTASSIUM, SERUM 3.5 MMOL/L (3.5-5.3); SGOT(AST) 55 U/L (5-40); SGPT(ALT) 40 U/L (5-65); SODIUM, SERUM 141 MMOL/L (135-148); TOTAL BILIRUBIN 0.6 MG/DL (0-1.2); TOTAL PROTEIN 4.2 G/DL (6.0-8.5)
[2016-10-07 05:07] LABS: ALBUMIN 1.7 G/DL (3.5-5.0); GLUCOSE, SERUM 176 MG/DL (60-99); PHOSPHORUS, SERUM 2.7 MG/DL (2.5-4.5)
[2016-10-07 05:23] LABS: PREALBUMIN 16.8 MG/DL (17.0-43.0)
[2016-10-08 03:53] LABS: BASOPHILS 0.1 %; BASOPHILS ABSOLUTE 0.01 10/3/uL (0.0-0.16); EOSINOPHILS 0.4 %; EOSINOPHILS ABSOLUTE 0.06 10/3/uL (0.0-0.53); IMMATURE GRANULOCYTES 0.3 %; IMMATURE GRANULOCYTES ABSOLUTE 0.05 10/3/uL (0.0-0.11); LYMPHOCYTES 4.4 %; LYMPHOCYTES ABSOLUTE 0.63 10/3/uL (0.67-4.30); MEAN CORPUS HGB CONC 34.1 g/dL (32.0-36.0); MEAN CORPUSCULAR HEMOGLOB 34.2 pg (26.0-34.0); MEAN CORPUSCULAR VOLUME 100.3 fL (80-100); MEAN PLATELET VOLUME 10.3 fL (9.2-13.0); MONOCYTES ABSOLUTE 0.86 10/3/uL (0.21-1.20); NEUTROPHILS 88.8 %; NEUTROPHILS ABSOLUTE 12.69 10/3/uL (2.02-8.40); PLATELET COUNT 293 10/3/uL (150-400); RBC DISTRIBUTION WIDTH 14.2 % (12.0-16.0); RED CELL COUNT 3.22 10/6/uL (4.0-5.6); WHITE BLOOD CELLS 14.3 10/3/uL (4.5-10.5)
[2016-10-08 03:54] LABS: HEMATOCRIT 32.3 % (36.0-48.0); MANUAL DIFF NO %
[2016-10-08 05:02] LABS: BUN (BLOOD UREA NITROGEN) 15 MG/DL (6-23); CALCIUM, SERUM 7.4 MG/DL (8.5-10.4); CHLORIDE, SERUM 95 MMOL/L (96-112); CO2 (CARBON DIOXIDE) 29 MMOL/L (24-34); CREATININE 0.47 MG/DL (0.55-1.02); GFR AFRICAN AMERICAN 107 ML/MIN (>=60); GFR NON AFRICAN AMERICAN 92 ML/MIN (>=60); GLUCOSE, SERUM 177 MG/DL (60-99); POTASSIUM, SERUM 3.4 MMOL/L (3.5-5.3); SODIUM, SERUM 137 MMOL/L (135-148)
[2016-10-08 10:19] LABS: RETICULOCYTE COUNT 5.4 % (0.5-2.5); RETICULOCYTE COUNT ABSOLUTE 173.6 10/3/uL (20.2-119.8)
[2016-10-08 10:57] LABS: T PROTEIN (ELECT)(NOT OR 4.8 G/DL (6.0-8.5)
[2016-10-08 11:47] LABS: PROCALCITONIN 0.06 ng/mL (<0.5)
[2016-10-09 06:36] LABS: HEMATOCRIT 30.6 % (36.0-48.0); HEMOGLOBIN 10.3 g/dL (12.0-16.0); MEAN CORPUS HGB CONC 33.7 g/dL (32.0-36.0); MEAN CORPUSCULAR HEMOGLOB 34.6 pg (26.0-34.0); MEAN CORPUSCULAR VOLUME 102.7 fL (80-100); MEAN PLATELET VOLUME 10.2 fL (9.2-13.0); PLATELET COUNT 260 10/3/uL (150-400); RBC DISTRIBUTION WIDTH 14.3 % (12.0-16.0); RED CELL COUNT 2.98 10/6/uL (4.0-5.6); WHITE BLOOD CELLS 11.9 10/3/uL (4.5-10.5)
[2016-10-09 06:37] LABS: MANUAL DIFF YES %
[2016-10-09 06:44] LABS: BUN (BLOOD UREA NITROGEN) 17 MG/DL (6-23); CALCIUM, SERUM 7.6 MG/DL (8.5-10.4); CHLORIDE, SERUM 98 MMOL/L (96-112); CO2 (CARBON DIOXIDE) 30 MMOL/L (24-34); GFR AFRICAN AMERICAN 104 ML/MIN (>=60); GFR NON AFRICAN AMERICAN 90 ML/MIN (>=60); GLUCOSE, SERUM 182 MG/DL (60-99); POTASSIUM, SERUM 3.5 MMOL/L (3.5-5.3); SODIUM, SERUM 136 MMOL/L (135-148)
[2016-10-09 07:28] LABS: EOSINOPHILS 2 %; EOSINOPHILS ABSOLUTE (CALC) 0.24 10/3/uL (0.0-0.53); LYMPHOCYTES 2 %; LYMPHOCYTES ABSOLUTE (CALC) 0.24 10/3/uL (0.67-4.30); MONOCYTES 4 %; MONOCYTES ABSOLUTE (CALC) 0.48 10/3/uL (0.21-1.20); NEUTROPHILS ABSOLUTE (CALC) 10.95 10/3/uL (2.02-8.40); PLATELET ESTIMATE ADQ (ADEQUATE); SEGMENTED NEUTROPHIL (0) 92 %; TOTAL NUCLEATED CELLS 100
[2016-10-09 07:29] LABS: GIANT PLATELET RARE; MACROCYTES 1+ (5-10/OIF) (0-5/OIF); POLYCHROMASIA 1+ (2-5/OIF) (0-1/OIF)
[2016-10-09 09:41] LABS: A/G 1.04 RATIO (0.9-2.10); ALBUMIN (ELECTRO) 2.45 GM/DL (3.2-5.5); ALPHA 1 (ELECTRO) 0.21 GM/DL (0.1-0.4); ALPHA 1 RELAT % (NOT ORD) 4.4 % (1.0-4.0); ALPHA 2 (ELECTRO) 1.04 GM/DL (0.5-1.10); ALPHA 2 RELAT % 21.6 % (4.5-26.0); BETA RELATIVE % 14.5 % (9.0-22.0); GAMMA GLOBULIN (SPE) 0.41 G/DL (0.70-1.60); GAMMA RELAT % 8.5 % (6.0-22.0)
[2016-10-10 04:08] LABS: BASOPHILS 0.1 %; BASOPHILS ABSOLUTE 0.01 10/3/uL (0.0-0.16); EOSINOPHILS 1.9 %; EOSINOPHILS ABSOLUTE 0.18 10/3/uL (0.0-0.53); HEMATOCRIT 29.8 % (36.0-48.0); IMMATURE GRANULOCYTES 0.4 %; IMMATURE GRANULOCYTES ABSOLUTE 0.04 10/3/uL (0.0-0.11); LYMPHOCYTES 6.1 %; LYMPHOCYTES ABSOLUTE 0.57 10/3/uL (0.67-4.30); MEAN CORPUS HGB CONC 33.6 g/dL (32.0-36.0); MEAN CORPUSCULAR HEMOGLOB 34.4 pg (26.0-34.0); MEAN CORPUSCULAR VOLUME 102.4 fL (80-100); MEAN PLATELET VOLUME 10.3 fL (9.2-13.0); MONOCYTES 9.3 %; MONOCYTES ABSOLUTE 0.86 10/3/uL (0.21-1.20); NEUTROPHILS 82.2 %; NEUTROPHILS ABSOLUTE 7.62 10/3/uL (2.02-8.40); PLATELET COUNT 253 10/3/uL (150-400); RBC DISTRIBUTION WIDTH 14.1 % (12.0-16.0); RED CELL COUNT 2.91 10/6/uL (4.0-5.6); WHITE BLOOD CELLS 9.3 10/3/uL (4.5-10.5)
[2016-10-10 04:13] LABS: MANUAL DIFF NO %
[2016-10-10 06:36] LABS: BUN (BLOOD UREA NITROGEN) 18 MG/DL (6-23); CALCIUM, SERUM 7.6 MG/DL (8.5-10.4); CHLORIDE, SERUM 99 MMOL/L (96-112); CO2 (CARBON DIOXIDE) 30 MMOL/L (24-34); CREATININE 0.37 MG/DL (0.55-1.02); GFR AFRICAN AMERICAN 115 ML/MIN (>=60); GFR NON AFRICAN AMERICAN 100 ML/MIN (>=60); GLUCOSE, SERUM 158 MG/DL (60-99); POTASSIUM, SERUM 3.1 MMOL/L (3.5-5.3); SODIUM, SERUM 138 MMOL/L (135-148)
[2016-10-10 06:37] LABS: C-REACTIVE PROTEIN 26.4 MG/L (<8.0)
[2016-10-11 05:17] LABS: BASOPHILS 0.1 %; BASOPHILS ABSOLUTE 0.01 10/3/uL (0.0-0.16); EOSINOPHILS 1.3 %; EOSINOPHILS ABSOLUTE 0.12 10/3/uL (0.0-0.53); HEMATOCRIT 30.6 % (36.0-48.0); HEMOGLOBIN 10.1 g/dL (12.0-16.0); IMMATURE GRANULOCYTES 0.3 %; IMMATURE GRANULOCYTES ABSOLUTE 0.03 10/3/uL (0.0-0.11); LYMPHOCYTES 8.8 %; LYMPHOCYTES ABSOLUTE 0.81 10/3/uL (0.67-4.30); MEAN CORPUSCULAR HEMOGLOB 34.4 pg (26.0-34.0); MEAN CORPUSCULAR VOLUME 104.1 fL (80-100); MEAN PLATELET VOLUME 10.7 fL (9.2-13.0); MONOCYTES 5.1 %; MONOCYTES ABSOLUTE 0.47 10/3/uL (0.21-1.20); NEUTROPHILS 84.4 %; NEUTROPHILS ABSOLUTE 7.74 10/3/uL (2.02-8.40); RBC DISTRIBUTION WIDTH 14.4 % (12.0-16.0); RED CELL COUNT 2.94 10/6/uL (4.0-5.6); WHITE BLOOD CELLS 9.2 10/3/uL (4.5-10.5)
[2016-10-11 05:18] LABS: MANUAL DIFF NO %; PLATELET COUNT 157 10/3/uL (150-400)
[2016-10-11 05:31] LABS: BUN (BLOOD UREA NITROGEN) 17 MG/DL (6-23); CALCIUM, SERUM 7.5 MG/DL (8.5-10.4); CHLORIDE, SERUM 96 MMOL/L (96-112); CO2 (CARBON DIOXIDE) 26 MMOL/L (24-34); CREATININE 0.42 MG/DL (0.55-1.02); GFR AFRICAN AMERICAN 111 ML/MIN (>=60); GFR NON AFRICAN AMERICAN 95 ML/MIN (>=60); GLUCOSE, SERUM 180 MG/DL (60-99); POTASSIUM, SERUM 3.4 MMOL/L (3.5-5.3); SODIUM, SERUM 134 MMOL/L (135-148)
[2016-10-12 04:04] LABS: BASOPHILS 0.1 %; BASOPHILS ABSOLUTE 0.01 10/3/uL (0.0-0.16); EOSINOPHILS 1.6 %; EOSINOPHILS ABSOLUTE 0.12 10/3/uL (0.0-0.53); HEMATOCRIT 29.3 % (36.0-48.0); HEMOGLOBIN 9.9 g/dL (12.0-16.0); IMMATURE GRANULOCYTES 0.1 %; IMMATURE GRANULOCYTES ABSOLUTE 0.01 10/3/uL (0.0-0.11); LYMPHOCYTES 7.3 %; LYMPHOCYTES ABSOLUTE 0.54 10/3/uL (0.67-4.30); MEAN CORPUS HGB CONC 33.8 g/dL (32.0-36.0); MEAN CORPUSCULAR HEMOGLOB 34.5 pg (26.0-34.0); MEAN CORPUSCULAR VOLUME 102.1 fL (80-100); MONOCYTES 5.7 %; MONOCYTES ABSOLUTE 0.42 10/3/uL (0.21-1.20); NEUTROPHILS 85.2 %; NEUTROPHILS ABSOLUTE 6.31 10/3/uL (2.02-8.40); RED CELL COUNT 2.87 10/6/uL (4.0-5.6); WHITE BLOOD CELLS 7.4 10/3/uL (4.5-10.5)
[2016-10-12 04:12] LABS: MANUAL DIFF NO %; PLATELET COUNT 245 10/3/uL (150-400)
[2016-10-12 04:14] LABS: BUN (BLOOD UREA NITROGEN) 16 MG/DL (6-23); CALCIUM, SERUM 7.6 MG/DL (8.5-10.4); CHLORIDE, SERUM 97 MMOL/L (96-112); CO2 (CARBON DIOXIDE) 29 MMOL/L (24-34); CREATININE 0.42 MG/DL (0.55-1.02); GFR AFRICAN AMERICAN 111 ML/MIN (>=60); GFR NON AFRICAN AMERICAN 95 ML/MIN (>=60); GLUCOSE, SERUM 164 MG/DL (60-99); POTASSIUM, SERUM 3.4 MMOL/L (3.5-5.3); SODIUM, SERUM 138 MMOL/L (135-148)
[2016-10-12 04:27] LABS: C-REACTIVE PROTEIN 31.7 MG/L (<8.0)
[2016-10-12 17:29] LABS: ASCORBIC ACID (UR NOT ORDER) 20 (NEG); BILIRUBIN, URINE NEGATIVE (NEG); KETONE, URINE NEGATIVE (NEG); LEUKOCYTE ESTERASE(NOT OR LARGE (NEG)
[2016-10-12 17:42] LABS: WBC (NOT ORDERED) (RFLEX) > 182 (0-5)
[2016-10-13 05:30] LABS: BASOPHILS 0.2 %; BASOPHILS ABSOLUTE 0.02 10/3/uL (0.0-0.16); EOSINOPHILS 0.6 %; EOSINOPHILS ABSOLUTE 0.07 10/3/uL (0.0-0.53); HEMATOCRIT 30.2 % (36.0-48.0); HEMOGLOBIN 10.1 g/dL (12.0-16.0); IMMATURE GRANULOCYTES 0.2 %; IMMATURE GRANULOCYTES ABSOLUTE 0.02 10/3/uL (0.0-0.11); LYMPHOCYTES 3.6 %; MEAN CORPUS HGB CONC 33.4 g/dL (32.0-36.0); MEAN CORPUSCULAR HEMOGLOB 33.6 pg (26.0-34.0); MEAN CORPUSCULAR VOLUME 100.3 fL (80-100); MEAN PLATELET VOLUME 10.2 fL (9.2-13.0); MONOCYTES 7.4 %; MONOCYTES ABSOLUTE 0.82 10/3/uL (0.21-1.20); NEUTROPHILS ABSOLUTE 9.73 10/3/uL (2.02-8.40); PLATELET COUNT 262 10/3/uL (150-400); RBC DISTRIBUTION WIDTH 14.5 % (12.0-16.0); RED CELL COUNT 3.01 10/6/uL (4.0-5.6)
[2016-10-13 05:32] LABS: WHITE BLOOD CELLS 11.1 10/3/uL (4.5-10.5)
[2016-10-13 05:33] LABS: MANUAL DIFF NO %
[2016-10-13 05:38] LABS: BUN (BLOOD UREA NITROGEN) 18 MG/DL (6-23); CHLORIDE, SERUM 93 MMOL/L (96-112); CO2 (CARBON DIOXIDE) 31 MMOL/L (24-34); CREATININE 0.47 MG/DL (0.55-1.02); GFR AFRICAN AMERICAN 107 ML/MIN (>=60); GFR NON AFRICAN AMERICAN 92 ML/MIN (>=60); GLUCOSE, SERUM 158 MG/DL (60-99); POTASSIUM, SERUM 3.3 MMOL/L (3.5-5.3); SODIUM, SERUM 137 MMOL/L (135-148)
[2016-10-13 08:44] LABS: PHOSPHORUS, SERUM 3.7 MG/DL (2.5-4.5)
[2016-10-14 05:33] LABS: BASOPHILS 0.2 %; BASOPHILS ABSOLUTE 0.02 10/3/uL (0.0-0.16); EOSINOPHILS 1.6 %; EOSINOPHILS ABSOLUTE 0.16 10/3/uL (0.0-0.53); HEMATOCRIT 32.2 % (36.0-48.0); HEMOGLOBIN 10.7 g/dL (12.0-16.0); IMMATURE GRANULOCYTES 0.2 %; IMMATURE GRANULOCYTES ABSOLUTE 0.02 10/3/uL (0.0-0.11); LYMPHOCYTES 3.7 %; LYMPHOCYTES ABSOLUTE 0.36 10/3/uL (0.67-4.30); MEAN CORPUS HGB CONC 33.2 g/dL (32.0-36.0); MEAN CORPUSCULAR HEMOGLOB 33.8 pg (26.0-34.0); MEAN CORPUSCULAR VOLUME 101.6 fL (80-100); MEAN PLATELET VOLUME 10.1 fL (9.2-13.0); MONOCYTES 6.1 %; NEUTROPHILS 88.2 %; NEUTROPHILS ABSOLUTE 8.68 10/3/uL (2.02-8.40); PLATELET COUNT 276 10/3/uL (150-400); RBC DISTRIBUTION WIDTH 13.9 % (12.0-16.0); RED CELL COUNT 3.17 10/6/uL (4.0-5.6); WHITE BLOOD CELLS 9.8 10/3/uL (4.5-10.5)
[2016-10-14 05:34] LABS: MANUAL DIFF NO %
[2016-10-14 05:53] LABS: BUN (BLOOD UREA NITROGEN) 17 MG/DL (6-23); CALCIUM, SERUM 8.4 MG/DL (8.5-10.4); CHLORIDE, SERUM 96 MMOL/L (96-112); CO2 (CARBON DIOXIDE) 29 MMOL/L (24-34); CREATININE 0.36 MG/DL (0.55-1.02); GFR AFRICAN AMERICAN 116 ML/MIN (>=60); GFR NON AFRICAN AMERICAN 100 ML/MIN (>=60); GLUCOSE, SERUM 166 MG/DL (60-99); PHOSPHORUS, SERUM 3.4 MG/DL (2.5-4.5); POTASSIUM, SERUM 3.6 MMOL/L (3.5-5.3); PREALBUMIN 15.2 MG/DL (17.0-43.0); SGOT(AST) 48 U/L (5-40); SGPT(ALT) 54 U/L (5-65); SODIUM, SERUM 136 MMOL/L (135-148); TOTAL BILIRUBIN 0.7 MG/DL (0-1.2)
[2016-10-14 05:59] LABS: A/G RATIO 0.6 (0.7-1.9); ALBUMIN 2.1 G/DL (3.5-5.0); ALKALINE PHOSPHATASE 36 U/L (45-117); GLOBULIN 3.6 G/DL (2.5-4.1); TOTAL PROTEIN 5.7 G/DL (6.0-8.5)
[2016-10-15 04:08] LABS: BASOPHILS 0.1 %; BASOPHILS ABSOLUTE 0.01 10/3/uL (0.0-0.16); EOSINOPHILS 1.5 %; EOSINOPHILS ABSOLUTE 0.13 10/3/uL (0.0-0.53); HEMATOCRIT 30.6 % (36.0-48.0); HEMOGLOBIN 10.3 g/dL (12.0-16.0); IMMATURE GRANULOCYTES 0.1 %; IMMATURE GRANULOCYTES ABSOLUTE 0.01 10/3/uL (0.0-0.11); LYMPHOCYTES 5.8 %; LYMPHOCYTES ABSOLUTE 0.49 10/3/uL (0.67-4.30); MEAN CORPUS HGB CONC 33.7 g/dL (32.0-36.0); MONOCYTES 7.9 %; MONOCYTES ABSOLUTE 0.67 10/3/uL (0.21-1.20); NEUTROPHILS 84.6 %; NEUTROPHILS ABSOLUTE 7.17 10/3/uL (2.02-8.40); PLATELET COUNT 278 10/3/uL (150-400); RED CELL COUNT 3.03 10/6/uL (4.0-5.6); WHITE BLOOD CELLS 8.5 10/3/uL (4.5-10.5)
[2016-10-15 04:16] LABS: BUN (BLOOD UREA NITROGEN) 15 MG/DL (6-23); CALCIUM, SERUM 8.6 MG/DL (8.5-10.4); CHLORIDE, SERUM 98 MMOL/L (96-112); CO2 (CARBON DIOXIDE) 29 MMOL/L (24-34); CREATININE 0.45 MG/DL (0.55-1.02); GFR AFRICAN AMERICAN 108 ML/MIN (>=60); GFR NON AFRICAN AMERICAN 93 ML/MIN (>=60); GLUCOSE, SERUM 137 MG/DL (60-99); POTASSIUM, SERUM 3.8 MMOL/L (3.5-5.3); SODIUM, SERUM 137 MMOL/L (135-148)
[2016-10-15 04:17] LABS: MANUAL DIFF NO %
[2016-11-05] MEDS ORDERED: NORV5 PEG (08:12)
[2016-11-05] MEDS ORDERED: ASAB PEG (08:12)
[2017-01-03] MEDS ORDERED: LOVENOX40 SC (00:33)
[2017-01-03] MEDS ORDERED: HUMALOG SC (00:34)
[2017-01-03] MEDS ORDERED: LEVEMIR SC (00:35)
[2017-01-03] MEDS ORDERED: DUONEB INH (00:36)
[2017-01-03] MEDS ORDERED: ASAB PEG (00:36)
[2017-01-03] MEDS ORDERED: PRIN10 PEG (00:36)
[2017-01-03] MEDS ORDERED: SYN125 PEG (00:36)
[2017-01-03] MEDS ORDERED: FLORASTOR250 MG PEG (00:37)
[2017-01-03] MEDS ORDERED: KCL20UDL PEG (00:37)
[2017-01-03] MEDS ORDERED: PROTONI1 PEG (00:38)
[2017-01-03] MEDS ORDERED: COREG6 PEG (00:38)
[2017-01-03] MEDS ORDERED: LIPITOR80 MG PEG (00:38)
[2017-01-03] MEDS ORDERED: ZOFRAN4 PEG (00:39)
[2017-01-03] MEDS ORDERED: ACETSUP650 PR (00:39)
[2017-01-03] MEDS ORDERED: PLAVIX PO (04:26)
[2017-01-22] MEDS ORDERED: LOVENOX40 SC (01:50)
[2017-01-22] MEDS ORDERED: PLAVIX PEG (01:50)
[2017-01-22] MEDS ORDERED: LEVEMFLXPN SC (01:51)
[2017-01-22] MEDS ORDERED: ASAB PEG (01:51)
[2017-01-22] MEDS ORDERED: HUMALOG SC (01:51)
[2017-01-22] MEDS ORDERED: FLORASTOR250 MG PEG (01:53)
[2017-01-22] MEDS ORDERED: KCL20UDL PEG (01:53)
[2017-01-22] MEDS ORDERED: LIPITOR80 MG PEG (01:54)
[2017-01-22] MEDS ORDERED: COREG25 PEG (01:55)
[2017-01-22] MEDS ORDERED: PROTONI1 PEG (01:55)
[2017-01-22] MEDS ORDERED: DUONEB INH ×2 (01:56→01:57)
[2017-01-22] MEDS ORDERED: PRIN20 PEG (01:56)
[2017-01-22] MEDS ORDERED: APRES50 PEG (01:56)
[2017-01-22] MEDS ORDERED: BROVANA15 MCG INH (01:57)
[2017-01-22] MEDS ORDERED: ACETSUP650 PR (01:58)
[2017-01-22] MEDS ORDERED: ZOFRAN4 PEG (01:58)
[2017-01-22] MEDS ORDERED: SYN.15 PEG (01:59)
[2017-01-22] MEDS ORDERED: RISAMINE OINTMENT TOP (02:00)
[2017-02-11] MEDS ORDERED: PLAVIX PEG (19:08)
[2017-02-11] MEDS ORDERED: LOVENOX40 SC (19:09)
[2017-02-11] MEDS ORDERED: NOVOLOG SC (19:10)
[2017-02-11] MEDS ORDERED: LEVEMIR SC (19:12)
[2017-02-11] MEDS ORDERED: SYN.15 PEG (19:13)
[2017-02-11] MEDS ORDERED: PROTONI1 PEG (19:13)
[2017-02-11] MEDS ORDERED: NORV5 PEG (19:14)
[2017-02-11] MEDS ORDERED: ASAB PEG (19:14)
[2017-02-11] MEDS ORDERED: TEARS PURE OPH (19:14)
[2017-02-11] MEDS ORDERED: ZESTRIL30 MG PEG (19:15)
[2017-02-11] MEDS ORDERED: COREG25 PEG (19:15)
[2017-02-11] MEDS ORDERED: KCL20UDL PEG (19:16)
[2017-02-11] MEDS ORDERED: FLORASTOR250 MG PEG (19:16)
[2017-02-11] MEDS ORDERED: DUONEB INH ×2 (19:19→19:29)
[2017-02-11] MEDS ORDERED: LIPITOR10 PEG (19:19)
[2017-02-11] MEDS ORDERED: 8 HOUR650 MG PEG (19:21)
[2017-02-11] MEDS ORDERED: BROVANA15 MCG INH (19:21)
[2017-02-11] MEDS ORDERED: ACETSUP650 PR (19:22)
[2017-02-11] MEDS ORDERED: DSS PEG (19:23)
[2017-02-11] MEDS ORDERED: ZOFRAN ODT4 MG PO (19:27)
[2017-02-11] MEDS ORDERED: ALBUTEROL0.083 % INH (19:28)
[2017-02-11] MEDS ORDERED: RISAMINE OINTMENT TOP (19:31)
== END 2016-10-15 17:38 | DRG 64 ==
LOC: ER 08:50 → 6NO 11:43
PROVIDERS: Emergency Medicine; Hospitalist; Internal Medicine; Internal Medicine Gastroenterology; Internal Medicine Geriatric Medicine; Nurse Practitioner Adult Health; Nurse Practitioner Family; Physical Medicine & Rehabilitation; Psychiatry & Neurology Neurology
PROC: 0DH63UZ Insertion of Feeding Device into Stomach, Percutaneous Approach (ICD-10-PCS; principal; 2016-10-03 10:09)
DX: I63.49 Cerebral infarction due to embolism of other cerebral artery (principal); G93.41 Metabolic encephalopathy; J96.01 Acute respiratory failure with hypoxia; J69.0 Pneumonitis due to inhalation of food and vomit; I69.354 Hemiplegia and hemiparesis following cerebral infarction affecting left non-dominant side; R13.12 Dysphagia, oropharyngeal phase; K26.9 Duodenal ulcer, unspecified as acute or chronic, without hemorrhage or perforation; T83.511A Infection and inflammatory reaction due to indwelling urethral catheter, initial encounter; I47.1 Supraventricular tachycardia; E44.1 Mild protein-calorie malnutrition; E03.9 Hypothyroidism, unspecified; E87.6 Hypokalemia; E83.42 Hypomagnesemia; G89.4 Chronic pain syndrome; Z79.4 Long term (current) use of insulin; J84.10 Pulmonary fibrosis, unspecified; B96.89 Other specified bacterial agents as the cause of diseases classified elsewhere; Z68.28 Body mass index [BMI] 28.0-28.9, adult; I10 Essential (primary) hypertension; E11.65 Type 2 diabetes mellitus with hyperglycemia; I48.91 Unspecified atrial fibrillation; I27.2 Other secondary pulmonary hypertension; Z53.09 Procedure and treatment not carried out because of other contraindication; R63.3 Feeding difficulties; R19.5 Other fecal abnormalities
CPT/HCPCS: 31720; 36415; 36600; 70450; 70551; 71010; 72141; 80048; 80053; 80069; 80202; 80305; 80307; 81001; 82140; 82272; 82607; 82728; 82746; 82805; 82962; 83036; 83540; 83550; 83605; 83615; 83735; 83880; 84100; 84132; 84134; 84145; 84155; 84165; 84443; 84484; 85014; 85018; 85025; 85045; 85610; 85652; 85730; 86039; 86140; 86235; 86235-59; 86376; 86431; 86800; 86850; 86900; 86901; 87040; 87077; 87086; 87186; 87804; 92610-GN; 93005; 93880; 93970; 94640; 95816; 95819; 96374; 97110-GO; 97161-GP; 97164-GP; 97166-GO; 97168-GO; 97530-GO; 97530-GP; 99285; A9270-GY; C9113; J0360; J0690; J2405; J2543; J2930; J3370; J3411; J3430

== ENCOUNTER 2016-11-05 08:12 | Inpatient (IN) | payer BC, OTHER ==
--- NOTE | ~2016-11-05 | CN ---
Consultation Report [facility] [address] [place]. [address] NAME: TERESITA PAREKH : 34 STATUS : ADM IN PAT#: [id number] AGE: 81 ADM/REG DATE : 11/05/16 MR#: [id number] REPORT SERV DATE: 11/06/16 DICTATED BY: YINKA WHITE DATE: 11/05/16 REPORT STATUS : Draft TRANSCRIBED BY: MODL DATE: 11/05/16 CONSULTATION DATE OF CONSULTATION: 11/05/2016 CHIEF COMPLAINT: Acute hypoxemic respiratory failure. HISTORY OF PRESENT ILLNESS: Mrs. Teresita Parekh is a chronically ill-appearing 81-year- old white female with a past medical history significant for CVA with residual left hemiparesis, dysphagia, status post PEG tube placement, and restrictive lung disease by report, who presents to [facility]'s Emergency Room from an outside care facility. It should be noted that Mrs. Parekh has been hospitalized at least twice already this year. Mrs. Parekh is followed by Dr. Baldwin in our outpatient clinic. She was seen as recently as 06/2016, when she was seen in regard to her restrictive lung disease. There is a question of an interstitial lung process that being said, there has been no radiographic progression of this very mild finding over the last two plus years. There has also been a question of pulmonary hypertension in the past, which was reassessed as recently as July. The estimated right systolic ventricular pressure was 34 mmHg, technically following below the kylie for even mild pulmonary hypertension. That being said, she does have a moderate-to- severe ventilatory defect and a decreased DLCO as well. She is on no pulmonary medications. She is not currently requiring any supplemental oxygen during the day. She describes herself as a never smoker. She does admit to having secondhand exposures through her family as a child. She has never been assessed for obstructive sleep apnea. Her exercise tolerance is limited. Again, the patient has been hospitalized at least two times this year for issues related from her stroke and resultant hemiparesis and dysphagia. She did eventually have a PEG tube placed. More recently, she has been residing at a correction facility. She has been participating in speech therapy and has begun to be able to speak again. According to the , she likely had an aspiration event last night with resultant hypoxemia. As such, [facility]. Upon arrival, she was found to have a systolic blood pressure of 92. She was afebrile. An arterial blood gas was obtained, which demonstrated a pH of 7.44, PaCO2 of 36, and a PaO2 of 60. This was on a BiPAP at 100% settings /. She was started on antibiotics. A chest x-ray showed bilateral infiltrates. She has currently been moved to the [facility] for further assessment. The patient is currently wearing the BiPAP and is not conversant. Majority of the following information was garnered from her . She did apparently have an aspiration event. We do note that she was aggressively suctioned in the ER with copious secretions. She does have worsening infiltrates as compared to her recent chest x-ray in September. The patient does have known dyslipidemia and hypertension. There were no reports of any chest pain prior to her presentation. Consultation Report [address] [place]. [address] NAME: TERESITA PAREKH : 34 STATUS : ADM IN [facility]#: [id number] AGE: 81 ADM/REG DATE : 11/05/16 MR#: [id number] REPORT SERV DATE: 11/06/16 DICTATED BY: YINKA WHITE DATE: 11/05/16 REPORT STATUS : Draft TRANSCRIBED BY: VERNELL DATE: 11/05/16 There are no reports of fever or chills, chest pain, abdominal pain, or edema. PAST MEDICAL HISTORY: 1. CVA with residual left-sided hemiparesis. 2. Restrictive lung disease. 3. Diabetes mellitus. 4. Dysphagia, status post PEG tube placement. 5. Nocturnal hypoxemia. 6. Hypertension. 7. Dyslipidemia. 8. Recurrent UTIs. 9. Hypothyroidism. 10.Chronic diarrhea secondary to lymphocytic colitis. PAST SURGICAL HISTORY: 1. Total abdominal hysterectomy. 2. Appendectomy. 3. Cholecystectomy. 4. Cervical spine surgery. 5. Right total knee replacement. 6. Hemorrhoidectomy. 7. Cataract surgery. FAMILY HISTORY: The patient has a family history of cardiovascular disease. SOCIAL HISTORY: The patient is with her of twenty six years at bedside. They have four children, who are in good health. She has primarily worked within the home. She knows of no known exposures to dust, silica, or asbestos. TOBACCO/ALCOHOL: As previously mentioned, the patient describes herself as a never smoker. Although, she did have significant secondhand exposures in her childhood. MEDICATIONS: 1. Amlodipine 5 mg. 2. Aspirin 300 mg. 3. Atorvastatin 80 mg. 4. Insulin. 5. DuoNebs. 6. Levothyroxine 88 mcg. 7. Magnesium oxide 400 mg. 8. Metoprolol 25 mg. 9. Omeprazole 40 mg. ALLERGIES: THE PATIENT HAS KNOWN ALLERGY TO TICLOPIDINE AND SULFA. Consultation Report [address] [place]. [address] NAME: TERESITA PAREKH : 34 STATUS : ADM IN [facility]#: [id number] AGE: 81 ADM/REG DATE : 11/05/16 MR#: [id number] REPORT SERV DATE: 11/06/16 DICTATED BY: YINKA WHITE DATE: 11/05/16 REPORT STATUS : Draft TRANSCRIBED BY: VERNELL DATE: 11/05/16 REVIEW OF SYSTEMS: A complete review of systems was attempted. Pertinent positives and negatives are contained within the body of the HPI. PHYSICAL EXAMINATION: VITAL SIGNS: Blood pressure is 101/49, heart rate is 116, T-max is 97.2, respiratory rate is 24, SpO2 is 99% on BiPAP, 12/5 and FiO2 of 100%. GENERAL: Mrs. Teresita Parekh is a chronically ill-appearing 81-year-old white female, who is currently in the IMCU. She is not currently exhibiting any signs of acute respiratory distress. SKIN: Skin with appropriate texture, turgor. HEENT: Head, skull is normocephalic, atraumatic. Eyes, does not open her eyes. Ears, auricles and tragus without pain to palpation. Nose, bilateral nasal patency. Throat, dentition noted. NECK: Neck is supple. THORAX/LUNGS: Coarse rhonchi and wheezes appreciated throughout. CARDIOVASCULAR: No murmurs, rubs, or gallops. ABDOMEN: Soft. PEG tube noted. PERIPHERAL VASCULAR: No edema. MUSCULOSKELETAL: No evidence of erythema, deformity, or crepitus. NEUROLOGIC: Good muscle bulk and tone. PSYCHIATRIC: Unable to obtain. ACCESSORY DATA: Reveals a blood glucose of 211, procalcitonin is 4.08. White blood cell count is 10,400. Chest x-ray reveals bilateral pulmonary infiltrates. Echocardiogram performed in July reveals a right ventricular systolic pressure estimated to be 34 mmHg. IMPRESSION: 1. Acute hypoxemic respiratory failure. 2. Aspiration pneumonia. 3. Restrictive lung disease. 4. Dysphagia, status post PEG. 5. Cerebrovascular accident with residual hemiplegia. PLAN: 1. At this time, we have had a long conversation with the family regarding her code status. There is an on ongoing discussion whether she would desire intubation, should her clinical picture worsen. We will obtain a followup arterial blood gas sample to ensure that her oxygenation needs are currently being met. Given her probable aspiration event, it would be optimal if we could transition her from a BiPAP to Vapotherm therapy that being said, her oxygenation status will ultimately dictate the device in which we use. We will keep our colleagues in critical care medicine apprised of her current situation. 2. In regard to the patient's aspiration pneumonia, she has been placed on appropriate and aggressive antibiotic regimen. She is wheezing to some degree today and as such, we Consultation Report [address] [address] NAME: TERESITA PAREKH : 34 STATUS : ADM IN [facility]#: [id number] AGE: 81 ADM/REG DATE : 11/05/16 MR#: [id number] REPORT SERV DATE: 11/06/16 DICTATED BY: YINKA WHITE DATE: 11/05/16 REPORT STATUS : Draft TRANSCRIBED BY: MODL DATE: 11/05/16 will start her on some steroids. We will attempt to maximize her pulmonary toilet as allowed. The aforementioned impression and plan has been discussed with Dr. Valdovinos, who will follow with further recommendations. We thank you for this consult and look forward to participating in the care of Mrs. Teresita Parekh. GBS/MODL Yinka White PA-C / [id number] CC: Jimmy Mejía M.D.
--- NOTE | ~2016-11-05 | DS ---
Discharge Summary [address] [place]. [address] NAME: TERESITA PAREKH : 34 STATUS : DIS IN PAT#: [id number] AGE: 81 ADM/REG DATE : 11/05/16 MR#: [id number] REPORT SERV DATE: 11/25/16 DICTATED BY: JASMEET ALANIZ DATE: 11/21/16 REPORT STATUS : Draft TRANSCRIBED BY: MODL DATE: 11/21/16 ADMISSION DATE: 11/05/2016 DISCHARGE DATE: 11/21/2016 DISCHARGE DIAGNOSES: 1. Septic shock, briefly requiring pressor therapy from 11/05/2016 to 11/06/2016. 2. Aspiration pneumonia. 3. Recurrent aspiration pneumonia. 4. Oropharyngeal dysphagia, status post PEG tube placement on interval hyperalimentation. 5. Acute on chronic hypoxemic respiratory failure. 6. Interstitial lung disease. 7. History of multiple cerebrovascular accidents this year, currently on aspirin and Plavix. 8. Catheter-associated urinary tract infection with Proteus, treated. 9. Type 2 diabetes, insulin requiring, controlled on multi-injection therapy. 10.History of duodenal ulcer diagnosed 09/2015 with gastrointestinal bleeding. 11.Hypothyroid, on Synthroid replacement. Dose increased at discharge with current TSH 5.6. 12.History of chronic pain syndrome. 13.C-spine degenerative disk disease/degenerative joint disease, post surgery. 14.History of paroxysmal supraventricular tachycardia. 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 16.History of lymphocytic colitis. 17.Hypertension. 18.Debility due to cerebrovascular accidents, recurrent hospitalizations and aspiration. 19.Protein-calorie malnutrition. OPERATION AND PROCEDURES: None. PRESENT ILLNESS: This is an 81-year-old white female who was triaged in the emergency room on 11/05/2016 at 0712 hours from [facility] at [place] with suspected aspiration. Admission vital signs: Blood pressure 92/39, temp 97.2, pulse 126, respirations 28, and O2 sat 83% on 15 L. After evaluation in the emergency room, she was referred to the Hospitalist Service for admission. She was seen by Dr. Daniela Maier and admitted as described on admission history and physical examination. ADDITIONAL HISTORY: Included a hospitalization here, 09/14/2016 to 09/21/2016 with an acute right pontine CVA. She was subsequently admitted here on 09/24/2016 to 10/15/2016 with 1. Multifactorial encephalopathy secondary to additional cerebrovascular accidents plus metabolic factors. 2. Oropharyngeal dysphagia with aspiration. 3. Acute hypoxemic respiratory failure. Discharge Summary [address] [place]. [address] NAME: TERESITA PAREKH : 34 STATUS : DIS IN PAT#: [id number] AGE: 81 ADM/REG DATE : 11/05/16 MR#: [id number] REPORT SERV DATE: 11/25/16 DICTATED BY: JASMEET ALANIZ DATE: 11/21/16 REPORT STATUS : Draft TRANSCRIBED BY: VERNELL DATE: 11/21/16 She had what appeared to be an aspiration event at [facility] at [place] and was transferred here. Additional history per Dr. Maier. PHYSICAL EXAMINATION: Per Dr. Maier. ADMISSION LABORATORY: Per Dr. Maier. HOSPITAL COURSE: She was admitted by Dr. Maier with hypoxemic respiratory failure thought secondary to a recurrent aspiration event. She was admitted to the [facility]. Her hospital course from admission through 11/10 is as outlined on interim summary dictated by Dr. Mitchel Dominguez. Her hospital course from 11/11 through 11/18 is as outlined on interim summary dictated by Dr. Gómez. Her hospital care was assumed by the undersigned on 11/19. Arrangements had been made for her to be transferred to [facility] once she had achieved a level of reasonable stability. On 11/19, 11/20, and 11/21, she seemed to achieve that level of stability. Off antimicrobial therapy, she remained afebrile. Her oxygen requirement improved from at one point Vapotherm at 70 L to 10 L of high flow by the time of discharge. A procalcitonin which had been 40.71 on 11/06 had fallen to 0.13 on 11/20. Her white blood cell count, which had been 20.1 on 11/06, had normalized for 72 hours. A chest x-ray done on the showed mild interstitial thickening with residual bibasilar airspace disease improved, left greater than right. Her blood sugar control was good with q.6 hour blood sugars for 36 hours prior to discharge between 128 and 178. In addition, her electrolytes remained normal with normal BUN and creatinine. During this time, her level of alertness improved somewhat. She was aware. She responded appropriately. She would move her right hand and arm, which was an improvement. On 11/21 given the above, it was felt that she had achieved a level of improvement and stability where she could be safely transferred to [place]. She is high risk for re-aspiration and potential readmission in the absence of improvement in her overall oropharyngeal dysphagia and physical status, and her family is aware of this. Discharge Summary [address] [place]. [address] NAME: TERESITA PAREKH : 34 STATUS : DIS IN PAT#: [id number] AGE: 81 ADM/REG DATE : 11/05/16 MR#: [id number] REPORT SERV DATE: 11/25/16 DICTATED BY: JASMEET ALANIZ DATE: 11/21/16 REPORT STATUS : Draft TRANSCRIBED BY: VERNELL DATE: 11/21/16 DISCHARGE MEDICATIONS: All medications per PEG except insulin, Lovenox, and Protonix. Norvasc 5 mg twice daily, aspirin 81 mg daily, Lipitor 80 mg daily, Plavix 75 mg daily, Lovenox 40 subcu q.24 hours, NovoLog insulin level 2 every 6 hours, Synthroid 100 mcg daily, Imodium 3 mg daily, magnesium oxide 400 mg twice daily, Lopressor 25 mg twice daily, Protonix 40 mg IV twice daily, potassium 30 mEq twice daily, Florastor 1 capsule twice daily, transderm scopolamine patch every 72 hours, DuoNeb every 4 hours and as needed, Levemir 30 units at bedtime subcu, high-flow O2 10 L/minute, we asked her to keep sat greater or equal to 92. She was discharged on PEG feedings, Glucerna 1.2 at 45 with water flushes and a BMP with sodium 137, potassium 4.8, chloride 102, CO2 of 26, BUN 13, creatinine 0.39, glucose 122, calcium 8.5, magnesium 1.8, and phosphorous 3.4. Total protein 5.7, albumin 1.9, globulins 3.8, total bilirubin 0.3, alk phos 28, ALT 18, and AST 29. Nutrition has recommended increasing calories. This rate had not been increased as of yet because of volume concerns regarding her aspiration risk. This will need to be addressed pending her continued improvement. DISCHARGE TIME: Greater than 30 minutes. DD/EDIL Jasmeet Alaniz M.D. / [id number] CC: Jimmy Lorenz M.D. [facility]
--- NOTE | ~2016-11-05 | IDS ---
Interim Discharge Summary [facility] [address] [place]. [address] NAME: TERESITA PAREKH : 34 STATUS : ADM IN [facility]#: [id number] AGE: 81 ADM/REG DATE : 11/05/16 MR#: [id number] REPORT SERV DATE: 11/10/16 DICTATED BY: DATE: REPORT STATUS : Draft TRANSCRIBED BY: MODL DATE: 11/10/16 ADMISSION DATE: 11/05/2016 DISCHARGE DATE: The patient has been admitted to the [facility]. CONSULTANTS: Dr. Sandrine Valdovinos of Pulmonology and Dr. Truong Yo of Neurology. CURRENT DIAGNOSES: 1. Septic shock-resolved, briefly requiring pressor therapy from 11/05/2016 to 11/06/2016. 2. Aspiration pneumonia-due to chronic oropharyngeal dysphagia from recent cerebrovascular accidents. Suspected aspiration event preceding admission and possibly again on the morning of 11/08/2016. 3. Catheter associated urinary tract infection-indwelling Tate catheter present prior to admission. Exchanged on 11/06/2016. Urine culture showing Proteus. 4. Severe sepsis-resolved. 5. Mild pulmonary edema due to fluid resuscitation for septic shock-resolved after two doses of diuretics. 6. History of multiple recent cerebrovascular accidents-continued on aspirin and initiated on Plavix this week. 7. History of duodenal ulcer diagnosed in september 2015. No evidence of gastrointestinal bleeding at present. Remains on proton pump inhibitor. 8. Insulin-dependent diabetes mellitus type 2-controlled. 9. Hypothyroidism-normalizing thyroid function tests, on levothyroxine. 10.Hypokalemia. 11.Hypomagnesemia. 12.History of pulmonary fibrosis-2 L oxygen dependent. 13.Lymphocytic colitis with frequent loose stools, no evidence of Clostridium difficile in this admission. 14.Fibromyalgia. 15.History of paroxysmal supraventricular tachycardia. 16.History of chronic pain syndrome and prior narcotic dependence. 17.Hypertension. 18.Chronic debility due to cerebrovascular accidents. 19.Severe protein calorie malnutrition-tube feed dependent. IMAGIN. Portable chest x-ray on 11/05/2016, for shortness of breath and hypoxemia shows acute congestive failure changes, mild. Borderline cardiac silhouette. Heavy mitral valve annular calcification. 2. Portable chest x-ray on 11/05/2016, shows interval placement of right PICC line with tip in the SVC. Bilateral asymmetric infiltrates in the perihilar regions and lung bases. Worse compared to prior study. 3. CT of the abdomen and pelvis on 11/05/2016, for loose stools and elevated lactic acid level. Shows no bowel perforation or GI tract obstruction. Completely decompressed colon. Severe bibasilar right greater than left consolidation of the lungs most Interim Discharge Summary [place] [place]. [address] NAME: TERESITA PAREKH : 34 STATUS : ADM IN PAT#: [id number] AGE: 81 ADM/REG DATE : 11/05/16 MR#: [id number] REPORT SERV DATE: 11/10/16 DICTATED BY: DATE: REPORT STATUS : Draft TRANSCRIBED BY: MODL DATE: 11/10/16 concerning for aspiration pneumonia with small right and trace left pleural effusions. 4. Portable chest x-ray on 11/07/2016, shows bilateral asymmetric infiltrates, improving compared to prior study. 5. Portable chest x-ray on 11/08/2016, shows increasing perihilar bibasilar infiltrates with atelectasis and bilateral pleural effusions. 6. Portable chest x-ray on 11/09/2016, shows improvement in the right lung suggesting congestive heart failure changes. PERTINENT LABORATORY DATA: Initial white blood count 20.1, presently 11.6. Procalcitonin value as high as 40, with lactic acid level as high as 3.9. Hemoglobin level stable between 9 and 10. Platelets initially elevated at 664-reactive, presently 370. Creatinine values ranging from 0.5 to 0.8. Blood cultures 1/2 positive on 11/05/2016, for coag-negative Staph felt to be a contaminant. Fecal white count negative and C diff PCR negative on 11/06/2016. Sputum positive for abundant growth of Proteus and MSSA on 11/05/2016. Proteus with indeterminate sensitivity to Cipro. Urinalysis turbid with large leukocyte esterase, greater than 182 red cells, and white blood cells, with many white blood cell clumps, and moderate bacteria. Subsequent culture growing Proteus with resistance to Bactrim and indeterminate susceptibility to Cipro. TSH 5.6, free T4 1.03, prealbumin 8.4. BRIEF HISTORY: For full details please see the previously dictated history of present illness by Dr. Daniela Maier. This is an 81-year-old white female, who sustained multiple strokes between August and September of 2016, and had been discharged to [facility] [place] for ongoing physical rehabilitation, where the patient's family reported, she had been doing well until a few days prior to admission, when they noticed that she might have been slightly more lethargic. They were evaluating for potential urinary tract infection at [facility], and the patient had been placed on Levaquin with some improvement in her mentation just prior to admission. However, early in the morning on 11/05/2016, she was noted to be coughing, less responsive, and had oxygen saturations in the 70s on her home oxygen of 2 L nasal cannula. She was brought to the [facility] Emergency Department for evaluation, and admitted for hypo hypoxemic respiratory failure, due to suspected aspiration event. Evaluation in the emergency department, was also consistent with a catheter associated urinary tract infection, and severe sepsis. The case was initially discussed with the desktop manager service for admission, the patient's code status was indeterminate at that time and therefore they recommended admission to the Hospitalist Service instead. HOSPITAL COURSE: The patient was admitted to the [facility] and placed on continuous BiPAP for ongoing hypoxemia despite 100% non rebreather. The patient was also hypotensive in the 70s/40s with minimal urine output and an elevated lactic acid level. This was not responsive to 4 L of fluids and thus she was started on Levophed after PICC line could be placed. Several urgent meetings were had on the day of admission, with the patient's family, including her Robert, her daughter Marley, and her son Bartolome. Between the three, they were in agreement that the patient should be a full code. Thankfully, throughout the evening on 11/05/2016, the patient continued to improve on Levophed and continuous BiPAP. Interim Discharge Summary [place] [id number] [facility] [address] [place] [address] NAME: TERESITA PAREKH : 34 STATUS : ADM IN [facility]#: [id number] AGE: 81 ADM/REG DATE : 11/05/16 MR#: [id number] REPORT SERV DATE: 11/10/16 DICTATED BY: DATE: REPORT STATUS : Draft TRANSCRIBED BY: MODL DATE: 04/23/17 She had also been started on broad-spectrum antibiotics including vancomycin, cefepime, and Flagyl at that point. The patient was able to be weaned off pressors on the afternoon of 11/06/2016, and also came off continuous BiPAP at that point, utilizing Vapotherm successfully instead. At this point, she was showing downtrend in her procalcitonin and white blood cell count, as well as her lactic acid level. Culture results began to return on the morning of 11/08/2016, demonstrating Proteus and MSSA in the sputum, and Proteus in the urine. That morning, the patient had some increase in respiratory distress with coarse breath sounds throughout, and some abdominal accessory muscle use. She had more copious secretions that respiratory therapy was suctioning. A stat chest x-ray was obtained, demonstrating more of a volume overload component than a true recurrent aspiration. Procalcitonin that morning demonstrated ongoing down trend and troponin was negative. ABG was stable and the patient did not have any increased oxygen requirements on that day. She was diuresed for the two days with good urine output, improvement in her clinical status, and improvement in her chest x-ray. Per the culture results, the patient's antibiotics were streamlined to combination of Ancef and Flagyl on 11/08/2016. The patient has remained in the IMCU, at her neurologic baseline per family, growing stronger and more alert by the day. 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 This is being managed with strict aspiration precautions and frequent suctioning by nursing staff. The patient's tube feeds are at goal currently and Physical Therapy and Occupational Therapy have been following. Speech Therapy is requested to begin following as well, and case management is asked to begin working toward discharge planning over the next several days, for this patient. The patient's IV steroids have been discontinued today and she has been started on oral steroids which will require additional taper. Her antibiotics for aspiration pneumonia and catheter associated urinary tract infection will need to be continued for 10 to 14 days total, pending the patient's clinical course. Antibiotic therapy was initiated for both on 11/05/2016. Neurology and Pulmonology have followed during the hospitalization, and the only new medication change was the addition of Plavix this admission. Neurology had originally recommended that this be started last admission, but in the context of a duodenal ulcer, this was deferred at that time. The patient has demonstrated good tolerance of Plavix with no evidence of GI bleeding currently. CURRENT MEDICATIONS: 1. Aspirin 81 mg p.o. daily. 2. Lipitor 80 mg p.o. at bedtime. 3. Ancef 1 g IV q.8 hours-started on 11/08/2016 after receiving vancomycin and cefepime from 11/05/2016. 4. Plavix 75 mg p.o. daily. Interim Discharge Summary [address] [address] NAME: TERESITA PAREKH : 34 STATUS : ADM IN PAT#: [id number] AGE: 81 ADM/REG DATE : 11/05/16 MR#: [id number] REPORT SERV DATE: 11/10/16 DICTATED BY: DATE: REPORT STATUS : Draft TRANSCRIBED BY: MODL DATE: 11/10/16 5. Lovenox 40 mg subcu daily. 6. NovoLog level 2 sliding scale. 7. NovoLog 10 units subcu q.6 hours. 8. Levemir 30 units subcu at bedtime. 9. Levothyroxine 88 mcg p.o. daily. 10.Magnesium oxide 400 mg p.o. twice a day. 11.Lopressor 25 mg p.o. twice a day. 12.Nystatin cream applied to the perineum and buttocks three times a day. 13.Protonix 40 mg IV twice a day. 14.Potassium 40 mEq p.o. twice a day. 15.Flagyl 500 mg IV q.8 hours-started on 11/05/2016. 16.DuoNeb. 17.Hypoglycemia protocol. 18.Loperamide 3 mg p.o. daily. 19.Norvasc 5 mg p.o. daily. 20.Number patient also has a variety of p.r.n. pain and nausea medications available to her. Current tube feeds are Glucerna 1.2 at goal 60 mL per hour and free water flushes of 195 mL every four hours. MUKUND/VERNELL Mitchel Dominguez M.D. / [id number] CC: Jimmy Mejía M.D.
--- NOTE | ~2016-11-05 | HP ---
History And Physical [place] [id number] [facility] [place]. [address] NAME: TERESITA PAREKH : 34 STATUS : ADM IN [facility]#: [id number] AGE: 81 ADM/REG DATE : 11/05/16 MR#: [id number] REPORT SERV DATE: 11/05/16 DICTATED BY: KEVIN MAIER DATE: 11/05/16 REPORT STATUS : Draft TRANSCRIBED BY: VERNELL DATE: 11/05/16 DATE OF ADMISSION: 11/05/2016 CHIEF COMPLAINT: Hypoxemia. HISTORY OF PRESENT ILLNESS: The patient is a very pleasant 81-year-old white female, who I know well. I last admitted her back on 09/24/2016. 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 She was at the group home for about 48 hours when she returned to the hospital. Her family stated that her mental status was changed. She was lethargic, semi-comatose when I saw her, and actually it was discovered on repeat MRI that she had suffered a new left MCA acute territory stroke and a right frontal embolic-appearing stroke. She was readmitted to the hospital at that time, and underwent extensive evaluation including Neurology and ultimately GI. She ended up having a PEG tube placed for dysphagia, was placed on tube feeds, underwent physical therapy, occupational therapy, and speech therapy. She suffered an incidental duodenal ulcer and GI bleeding which was discovered on endoscopy for PEG tube. She was placed on b.i.d. PPI therapy. Ultimately she was discharged to [facility] where she was to continue PT/OT as well as speech therapy. She was saying some words, very short responses and had some mobility in her right arm and her left leg but she is bed-bound, requires tube feeds and 24-hour care at the group home. She has been participating in things at the group home with help but has not had speech therapy in about 5 days. Over the weekend on Friday, she developed what sound like a rhonchorous cough. The family reports that many times she was left flat and that her oxygen came off at night. Apparently her respiratory status worsened this morning and she became very rhonchorous with diminished O2 saturation in the 70s. She was rushed to [facility] Emergency Department where she was placed on O2. She currently moans but does not respond to questions and does not follow commands. PAST MEDICAL HISTORY: 1. Multiple CVAs including a right pontine, left MCA, right frontal. 2. Pulmonary fibrosis requiring 2 L of O2 at all times. 3. Lymphocytic colitis. 4. Diabetes mellitus. 5. Hypertension. 6. Hyperlipidemia. 7. Duodenal ulcer with GI bleeding. 8. Recurrent urinary tract infections. 9. Fibromyalgia. 10.Chronic pain. 11.Vertigo. 12.Pulmonary hypertension. 13.Depression. 14.Shingles. 15.SVT. 16.Hypothyroidism. 17.Oropharyngeal dysphagia with PEG tube. History And Physical [address] [address] NAME: TERESITA PAREKH : 34 STATUS : ADM IN [facility]#: [id number] AGE: 81 ADM/REG DATE : 11/05/16 MR#: [id number] REPORT SERV DATE: 11/05/16 DICTATED BY: KEVIN MAIER DATE: 11/05/16 REPORT STATUS : Draft TRANSCRIBED BY: VERNELL DATE: 11/05/16 SURGICAL HISTORY: 1. Cholecystectomy. 2. Hysterectomy. 3. Appendectomy. 4. Cervical spine surgery. 5. Knee surgery. 6. Cataract surgery. 7. Right total knee arthroplasty. 8. Tummy tuck. 9. Hemorrhoid surgery. ALLERGIES: SULFA AND TICLID. SOCIAL HISTORY: She never smoked. She did have secondhand exposure. She does not drink. She has 4 children. She is currently residing in a group home. FAMILY HISTORY: Father with heart disease and diabetes. Her mother had some type of bone cancer. HOME MEDICATIONS: Reviewed and attached. REVIEW OF SYSTEMS: Full 10-point review of systems obtained, all from family members but not from the patient. PHYSICAL EXAMINATION: VITAL SIGNS: Currently initially she was 92/39, sats are currently 95% on 75% FiO2 on BiPAP. Blood pressure is 105/52 now, temperature was 97.2, and respiratory rate is currently 25 to 30. GENERAL: Very frail appearing white female. HEENT: Normocephalic, atraumatic. She has a BiPAP mask in place. HEART: Regular rate and rhythm. LUNGS: She has diffuse rhonchorous sounding breath sounds and transmitted upper airway sounds as if she needs to be suctioned. She has a very weak cough and really cannot cough on command. ABDOMEN: Soft, nontender. She has a PEG tube in place. EXTREMITIES: Warm and dry. Her hands and feet are cold. She is clamped down peripherally. SKIN: Intact without obvious rash or lesion. NEUROLOGIC: She follows no commands. She does not cooperate with the neurological exam, so it is difficult to tell what her true neurological exam is today. LABORATORY AND X-RAY: H and H 12.7 and 39, white count 10, and platelets 664. Sodium 134, potassium 3.8, chloride 95, CO2 of 27, BUN and creatinine 31 and 0.82. Glucose 211. Lactate 3.8. Troponin 0.02. LFTs are normal. Chest x-ray shows diffuse pulmonary infiltrates, but she looks like she has a right lower lobe infiltrate. ABG 7.44/36/60. ASSESSMENT/PLAN: History And Physical [address] [address] NAME: TERESITA PAREKH : 34 STATUS : ADM IN [facility]#: [id number] AGE: 81 ADM/REG DATE : 11/05/16 MR#: [id number] REPORT SERV DATE: 11/05/16 DICTATED BY: KEVIN MAIER DATE: 11/05/16 REPORT STATUS : Draft TRANSCRIBED BY: VERNELL DATE: 11/05/16 1. Hypoxemic respiratory failure. My suspicion is that she has had an aspiration event given rhonchorous nature of her breath sounds and her history of dysphagia. Her white count is 10.4. I am going to check a procalcitonin. Culture her blood. She has had NG suctioning just now in the ER and she had copious amounts of purulent sputum which I will also send for culture and gram stain. Currently the only way to really oxygenate or sort of intubating her is to provide BiPAP which we have done. I am going to hold her tube feeds. Continue her BiPAP, have Pulmonary to see her in consultation. We will cover her empirically with cefepime, vancomycin, and Flagyl and follow up all cultures. We will provide DuoNeb q.4 hours into suctioning p.r.n. 2. History of pulmonary fibrosis. Again this is likely contributing to her ongoing course of respiratory difficulties and hypoxemia. If certainly not helping, I am going to add steroids to her regimen as she does have some wheezing. 3. History of multiple CVAs with resultant hemiparesis, dysphagia, and dysarthria. I think her prognosis is overall poor. Given her multiple strokes and the nature of her deficits. 4. Diabetes mellitus. We will add some sliding scale and continue her long-acting insulin. Hold short-acting insulin as I am holding her tube feeds. 5. History of dysphagia with PEG tube and aspiration. Holding tube feeds, given that she may have had an aspiration event. 6. History of recent duodenal ulcer discovered on EGD. We will continue PPI b.i.d. 7. History of hypothyroidism. Continue Synthroid. 8. Deep venous thrombosis prophylaxis with subcutaneous Lovenox. 9. Recurrent urinary tract infections. We will change her Tate catheter while she is here. 10.Disposition pending above. 11.Code status. Discussed with family at length. They do desire full code status. 12.Prognosis. I feel her prognosis is grim given her multitude of medical problems, ongoing complications, and morbidities. We will need to have continued discussions with family based on how she does in the next 48 hours. NOEL/VERNELL Kevin Maier M.D. / [id number] CC: Jimmy Mejía M.D. Nathan Mull IV, M.D. James Scott Manton, M.D.
--- NOTE | ~2016-11-05 | CN ---
Consultation Report [facility] [address] [place]. [address] NAME: TERESITA PAREKH : 34 STATUS : ADM IN PAT#: [id number] AGE: 81 ADM/REG DATE : 11/05/16 MR#: [id number] REPORT SERV DATE: 11/07/16 DICTATED BY: DATE: REPORT STATUS : Draft TRANSCRIBED BY: MODL DATE: 11/07/16 NEUROLOGY CONSULTATION DATE OF CONSULTATION: 11/07/2016 CLINICAL INDICATIONS: Management of secondary prevention for stroke. HISTORY OF PRESENT ILLNESS: This is an 81-year-old female who presented to [facility] on 11/05/2016, secondary to decreased oxygen saturation. The patient was noted to have aspiration pneumonia at that time and was treated. The patient's mental status subsequently improved with the patient noted to have achieved baseline mental status today. The patient does have recent previous stroke with the patient noted initially to have a pontine stroke with intracranial atherosclerotic disease. The patient subsequently was noted to have embolic-appearing stroke in September 2016, during the admission for aspiration pneumonia, UTI and embolic stroke. Discussion was held with the patient and family members regarding transesophageal echocardiogram for evaluation of embolic source. Cardiology was consulted secondary to the patient's baseline condition as well as concern for complications. Family declined the transesophageal echocardiogram at that time. The patient was briefly on heparin drip and subsequently that was discontinued and the patient was discharged to rehab on aspirin and Lipitor especially as the patient's endoscopy reported some possible gastric ulcers. The patient has not had any reports of significant GI bleed. Since the hospital discharge with the patient noted to have spontaneous movement of right upper extremity at baseline. No significant new neuro deficit was otherwise noted during the current hospital admission. No other change in medication was otherwise reported. 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 has had been in 2017 pulmonary fibrosis as well as lymphocytic colitis, diabetes mellitus, hypertension, hyperlipidemia, duodenal ulcer with previous GI bleeding, recurrent urinary tract infection, fibromyalgia chronic pain, pulmonary hypertension, recent aspiration pneumonias, depression, shingles, SVTs, hypothyroidism, and recent PEG tube placement. ALLERGIES: THE PATIENT WAS NOTED TO HAVE ALLERGY TO SULFA AND TICLID. SOCIAL HISTORY: The patient denies tobacco, alcohol, or recreational drug usage. The patient resides in the halfway. FAMILY HISTORY: Significant for coronary artery disease, diabetes as well as bone cancer. REVIEW OF SYSTEMS: Unable to be obtained secondary to the patient's current mental status. CURRENT MEDICATIONS: The patient's current medications consist of aspirin, Flagyl, vancomycin, Levemir, Lipitor, Lovenox, Maxipime, NovoLog, Protonix, Solu-Medrol, Synthroid; Consultation Report [address] [address] NAME: TERESITA PAREKH : 34 STATUS : ADM IN PAT#: [id number] AGE: 81 ADM/REG DATE : 11/05/16 MR#: [id number] REPORT SERV DATE: 11/07/16 DICTATED BY: DATE: REPORT STATUS : Draft TRANSCRIBED BY: VERNELL DATE: 11/07/16 Plavix was added to the patient's medication regimen per Neurology recommendations. PHYSICAL EXAMINATION: VITAL SIGNS: Overnight, the patient was noted to have vital signs with T-max of 97.9, heart rate of 99 to 119, respirations of 18 to 24, and blood pressure of 113 to 152 over 60 to 107. GENERAL: The patient is well developed, well nourished, in no acute distress. CARDIOVASCULAR: Examination was tachycardic. No carotid bruits were otherwise auscultated. PULMONARY: Examination was clear to auscultation bilaterally. NEUROLOGICAL: Generally, the patient is alert. Vocalization was noted but no significant verbal communication or verbalization was noted during the evaluation. The patient does not follow commands. Cranial nerves 2 through 12, pupil was mildly asymmetric at the time of evaluation, with the patient noted to have left gaze preference. Horizontal eye movement was noted with oculocephalic maneuver with mild dysconjugate gaze. The patient was noted to have a sluggish horizontal eye movement in the left eye, oculocephalic maneuver. Bilateral edkbf-xy-ybkxja response was noted to be intact. Left facial weakness was noted at the time of evaluation. The patient does demonstrate some spontaneous movement in the right upper extremity. No significant withdrawal to noxious stimulation in all four extremities but trace grimace was noted. The patient was noted to have diffuse hyperreflexic as well as upgoing toe at the time of evaluation. Cerebellar examination and gait was unable to be evaluated secondary to the patient's current mental status. LABORATORY STUDIES: Demonstrated white blood cell count of 15.0, hemoglobin of 9.0, hematocrit of 28.8, and platelet count of 356. Chemistry panel, sodium of 142, potassium of 3.5, chloride 113, bicarb of 18, BUN of 30, creatinine 0.51, glucose of 126, calcium of 7.3. No neuro imaging was available at the time of evaluation. 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 During previous hospital admission, discussed with family members regarding transesophageal echocardiogram for further evaluation. At that time, the patient's family declined studies secondary to concern for possible complication secondary to intracranial atherosclerotic disease. We will recommend the patient to be on dual anti-platelet therapy. If possible, we will attempt to restart the patient on Plavix 75 mg per PEG tube daily. We will continue aspirin as well as Lipitor. No new neuro imaging or EEG as the patient was reportedly at baseline neuro mental status. RECOMMENDATIONS: 1. Aspirin 81 mg per PEG tube daily. 2. Plavix 75 mg per PEG tube daily. 3. Lipitor 80 mg per PEG tube daily. 4. No new neuro imaging or EEG at this time. [facility]L Consultation Report [address] [address] NAME: TERESITA PAREKH : 34 STATUS : ADM IN [facility]#: [id number] AGE: 81 ADM/REG DATE : 11/05/16 MR#: [id number] REPORT SERV DATE: 11/07/16 DICTATED BY: DATE: REPORT STATUS : Draft TRANSCRIBED BY: VERNELL DATE: 11/07/16 Truong Yo MD / [id number] CC: Jimmy Mejía M.D.
--- NOTE | ~2016-11-05 | IDS ---
Interim Discharge Summary [facility] [address] [place]. [address] NAME: TERESITA PAREKH : 34 STATUS : ADM IN [facility]#: [id number] AGE: 81 ADM/REG DATE : 11/05/16 MR#: [id number] REPORT SERV DATE: 11/18/16 DICTATED BY: WESBRIAN SEMARY ANN DATE: 11/18/16 REPORT STATUS : Draft TRANSCRIBED BY: MODL DATE: 11/18/16 ADMISSION DATE: 11/05/2016 DISCHARGE DATE: WORKING DIAGNOSES: 1. Multiple cerebrovascular accident with vascular dementia and debilitation. 2. Oropharyngeal dysphagia related to above. 3. Recurrent aspiration episodes as well as aspiration pneumonias. The patient has had methicillin-sensitive Staphylococcus aureus and Proteus growing sputum and has been treated with Ancef and Flagyl. The patient is currently off antibiotics. 4. Acute hypoxic respiratory failure, requiring Vapotherm. 5. Septic shock, that is now resolved. 6. Catheter-associated urinary tract infection with Proteus, resolved. The patient is currently not on any antibiotics. 7. Peptic ulcer disease. 8. Insulin-dependent diabetes type 2. 9. Pulmonary fibrosis. 10.Lymphocytic colitis. 11.Fibromyalgia. 12.History of paroxysmal supraventricular tachycardia. 13.History of chronic pain. 14.Hypertension. 15.Severe protein-caloric malnutrition and tube feed dependent. CONSULTANTS: Pulmonology. PROCEDURES: None. HOSPITAL COURSE: Please note that this interim discharge summary covers events happened from 11/12/2016 to 11/18/2016. For details of ongoing hospital stay, please refer to the interim discharge summary dictated by Dr. Blair on 11/10/2016. In summary, during this past week, the patient has had a fairly unremarkable hospital stay. The patient continues to require Vapotherm and her oxygen requirements have fluctuated based on the degree of aspiration. The patient remains quite debilitated and remains minimally verbal. There is no doubt that the patient will need a long-term care and despite that, the patient's long-term prognosis is still quite poor. On one of the nights, the patient actually had a more pronounced aspiration episode and required her Vapotherm to be increased up to 40 L/minute at 80% FiO2. The patient was actually accepted to [facility] the next day. However with the acute changes, the patient's family did not feel ready to move the patient. The patient was thus held for observation overnight. Case Management is on the case again to once again get a bed from [facility]. The patient has been treated with Ancef and Flagyl throughout the hospital stay for aspiration pneumonia as well as MSSA and Proteus pneumonia. Both of the antibiotics have been tapered off and the patient has been stable off all antibiotics for greater than 24 hours now. We will continue to monitor labs and work towards transferring her to [facility]. Dr. Blair, will assume care in the morning. Interim Discharge Summary [address] [address] NAME: TERESITA PAREKH : 34 STATUS : ADM IN [facility]#: [id number] AGE: 81 ADM/REG DATE : 11/05/16 MR#: [id number] REPORT SERV DATE: 11/18/16 DICTATED BY: BRIAN HARVEY DATE: 11/18/16 REPORT STATUS : Draft TRANSCRIBED BY: VERNELL DATE: 11/18/16 [facility]/VERNELL Brian Harvey MD / [id number] CC: MD Ambrosio Palomino M.D.
[2016-11-05 07:29] LABS: ALLENS TEST Pos; BE (BASE EXCESS) 0.2 MEQ/L (0 +/- 2.5); CARBOXYHEMOGLOBIN 1.5 % (0-3); HEMOBLOGIN CONTENT 13.3 G/DL (12-16); INSTRUMENT SERIAL # 8087; METHEMOGLOBIN 0.3 % (0-3); MODE BIPAP; O2 CONTENT 16.5 VOL% (18-24); OPERATOR ID 14382; PCO2 (CO2 TENSION) 36 MMHG (35-45); PO2 (O2 TENSION) 60 MMHG (79-93); SAMPLE Arterial; pH 7.44 (7.37-7.43)
[2016-11-05 07:44] LABS: BASOPHILS 0.1 %; BASOPHILS ABSOLUTE 0.01 10/3/uL (0.0-0.16); EOSINOPHILS 0.1 %; EOSINOPHILS ABSOLUTE 0.01 10/3/uL (0.0-0.53); ER CBC TAT 0 Hrs 03 Mins; IMMATURE GRANULOCYTES 0.3 %; IMMATURE GRANULOCYTES ABSOLUTE 0.03 10/3/uL (0.0-0.11); LYMPHOCYTES 3.9 %; MEAN CORPUS HGB CONC 32.3 g/dL (32.0-36.0); MEAN CORPUSCULAR HEMOGLOB 31.4 pg (26.0-34.0); MEAN PLATELET VOLUME 9.4 fL (9.2-13.0); MONOCYTES 2.5 %; MONOCYTES ABSOLUTE 0.26 10/3/uL (0.21-1.20); NEUTROPHILS 93.1 %; NEUTROPHILS ABSOLUTE 9.67 10/3/uL (2.02-8.40); RBC DISTRIBUTION WIDTH 14.6 % (12.0-16.0); WHITE BLOOD CELLS 10.4 10/3/uL (4.5-10.5)
[2016-11-05 07:45] LABS: HEMATOCRIT 39.3 % (36.0-48.0); HEMOGLOBIN 12.7 g/dL (12.0-16.0); MANUAL DIFF NO %; MEAN CORPUSCULAR VOLUME 97.3 fL (80-100); PLATELET COUNT 664 10/3/uL (150-400); RED CELL COUNT 4.04 10/6/uL (4.0-5.6)
[2016-11-05 08:03] LABS: ALBUMIN 2.4 G/DL (3.5-5.0); ALKALINE PHOSPHATASE 45 U/L (45-117); BUN (BLOOD UREA NITROGEN) 31 MG/DL (6-23); CALCIUM, SERUM 8.8 MG/DL (8.5-10.4); CHEST PAIN PROFILE TAT 0 Hrs 22 Mins; CHLORIDE, SERUM 95 MMOL/L (96-112); CO2 (CARBON DIOXIDE) 27 MMOL/L (24-34); CREATININE 0.82 MG/DL (0.55-1.02); DIRECT BILIRUBIN 0.2 MG/DL (0.0-0.4); GFR AFRICAN AMERICAN 77 ML/MIN (>=60); GFR NON AFRICAN AMERICAN 67 ML/MIN (>=60); GLUCOSE, SERUM 211 MG/DL (60-99); INDIRECT BILIRUBIN(NOT ORDER) 0.3 MG/DL (0.1-0.9); POTASSIUM, SERUM 3.8 MMOL/L (3.5-5.3); SGOT(AST) 38 U/L (5-40); SGPT(ALT) 38 U/L (5-65); SODIUM, SERUM 134 MMOL/L (135-148); TOTAL BILIRUBIN 0.5 MG/DL (0-1.2); TOTAL PROTEIN 6.5 G/DL (6.0-8.5); TROPONIN I <0.02 NG/ML (<0.05)
[2016-11-05 08:06] LABS: INTERNATIONAL NORMAL RATI 1.3 UNITS (-); PROTIME (NOT ORD) 15.9 SEC (12.0-14.5)
[2016-11-05 08:07] LABS: PARTIAL THROMBO TIME 25.4 SEC (22.5-37.2)
[~2016-11-05 08:12] MED LIST changes: +ALBUTEROL0.083 % INH; +ASAB PEG; +DSS PO; +ENDOCET1 TAB PO; +HUMALOG SC; +LIPITOR80 MG PO; +MAXZIDE PO; +NEUR100 PO; +NORV5 PEG; +SYN88 PO
[2016-11-05] MEDS ORDERED: LIPITOR80 MG PEG (08:14)
[2016-11-05] MEDS ORDERED: HUMULIN R1 ML SC (08:15)
[2016-11-05] MEDS ORDERED: HUMALOG SC (08:15)
[2016-11-05] MEDS ORDERED: DUONEB INH (08:16)
[2016-11-05] MEDS ORDERED: LEVAQUIN750 MG PEG (08:17)
[2016-11-05] MEDS ORDERED: LEVEMFLXPN SC (08:18)
[2016-11-05] MEDS ORDERED: LEVOTHYROXIN100 MCG PO (08:18)
[2016-11-05] MEDS ORDERED: MAGOX4 PEG (08:19)
[2016-11-05] MEDS ORDERED: LOP25 PEG (08:24)
[2016-11-05] MEDS ORDERED: NYSTATIN-TRIAMC15 GM TOP (08:27)
[2016-11-05] MEDS ORDERED: PRILOSEC40 MG PEG (08:27)
[2016-11-05] MEDS ORDERED: KCL20UDL PEG (08:28)
[2016-11-05 08:31] LABS: ASCORBIC ACID (UR NOT ORDER) NEG (NEG); BILIRUBIN, URINE NEGATIVE (NEG); ER URINALYSIS TAT 0 Hrs 11 Mins; KETONE, URINE NEGATIVE (NEG); LEUKOCYTE ESTERASE(NOT OR LARGE (NEG)
[2016-11-05 08:36] LABS: PROCALCITONIN 4.08 ng/mL (<0.5)
[2016-11-05 08:46] LABS: NITRITE (URINE) NEG (NEG); WBC (NOT ORDERED) (RFLEX) > 182 (0-5)
[2016-11-05 12:32] LABS: ALLENS TEST Pos; BE (BASE EXCESS) -6.6 MEQ/L (0 +/- 2.5); CARBOXYHEMOGLOBIN 0.2 % (0-3); HCO3 (ACTUAL BICARBONATE) 19.4 MEQ/L (23-27); HEMOBLOGIN CONTENT 11.2 G/DL (12-16); INSTRUMENT SERIAL # 8083; METHEMOGLOBIN 0.4 % (0-3); O2 CONTENT 15.5 VOL% (18-24); OPERATOR ID 32199; PCO2 (CO2 TENSION) 40 MMHG (35-45); PO2 (O2 TENSION) 115 MMHG (79-93); SAMPLE Arterial
[2016-11-05 14:18] LABS: PROCALCITONIN 24.69 ng/mL (<0.5)
[2016-11-05 15:38] LABS: ALLENS TEST Pos; BE (BASE EXCESS) -7.8 MEQ/L (0 +/- 2.5); CARBOXYHEMOGLOBIN 0.3 % (0-3); HCO3 (ACTUAL BICARBONATE) 19.2 MEQ/L (23-27); HEMOBLOGIN CONTENT 11.1 G/DL (12-16); INSTRUMENT SERIAL # 8083; METHEMOGLOBIN 0.4 % (0-3); O2 CONTENT 14.6 VOL% (18-24); OPERATOR ID 32199; PCO2 (CO2 TENSION) 46 MMHG (35-45); PO2 (O2 TENSION) 82 MMHG (79-93); SAMPLE Arterial; pH 7.24 (7.37-7.43)
[2016-11-05 15:49] LABS: CHLORIDE, SERUM 104 MMOL/L (96-112); SODIUM, SERUM 139 MMOL/L (135-148)
[2016-11-05 15:50] LABS: A/G RATIO 0.5 (0.7-1.9); ALBUMIN 1.7 G/DL (3.5-5.0); ALKALINE PHOSPHATASE 30 U/L (45-117); BUN (BLOOD UREA NITROGEN) 35 MG/DL (6-23); CALCIUM, SERUM 7.3 MG/DL (8.5-10.4); CO2 (CARBON DIOXIDE) 18 MMOL/L (24-34); CREATININE 0.92 MG/DL (0.55-1.02); GFR AFRICAN AMERICAN 67 ML/MIN (>=60); GFR NON AFRICAN AMERICAN 58 ML/MIN (>=60); GLOBULIN 3.4 G/DL (2.5-4.1); GLUCOSE, SERUM 117 MG/DL (60-99); SGOT(AST) 40 U/L (5-40); SGPT(ALT) 33 U/L (5-65); TOTAL BILIRUBIN 0.4 MG/DL (0-1.2); TOTAL PROTEIN 5.1 G/DL (6.0-8.5)
[2016-11-05 16:15] LABS: MEAN CORPUS HGB CONC 31.2 g/dL (32.0-36.0); MEAN CORPUSCULAR HEMOGLOB 31.5 pg (26.0-34.0); MEAN PLATELET VOLUME 9.2 fL (9.2-13.0); WHITE BLOOD CELLS 10.8 10/3/uL (4.5-10.5)
[2016-11-05 16:17] LABS: HEMATOCRIT 31.1 % (36.0-48.0); HEMOGLOBIN 9.7 g/dL (12.0-16.0); PLATELET COUNT 454 10/3/uL (150-400); RED CELL COUNT 3.08 10/6/uL (4.0-5.6)
[2016-11-05 16:18] LABS: MANUAL DIFF YES %
[2016-11-05 16:36] LABS: BAND NEUTROPHILS 57 %; IMMATURE GRANS ABSOLUTE (CALC) 0.11 10/3/uL (0.0-0.11); LYMPHOCYTES 3 %; LYMPHOCYTES ABSOLUTE (CALC) 0.32 10/3/uL (0.67-4.30); METAMYELOCYTES 1 %; MONOCYTES 1 %; MONOCYTES ABSOLUTE (CALC) 0.11 10/3/uL (0.21-1.20); NEUTROPHILS ABSOLUTE (CALC) 10.26 10/3/uL (2.02-8.40); SEGMENTED NEUTROPHIL (0) 38 %; TOTAL NUCLEATED CELLS 100
[2016-11-05 16:37] LABS: BURR CELLS 1+ (3-10/OIF) (0-2/OIF); MACROCYTES 1+ (5-10/OIF) (0-5/OIF); PLATELET ESTIMATE SLT INC (ADEQUATE)
[2016-11-05 18:25] LABS: BUN (BLOOD UREA NITROGEN) 35 MG/DL (6-23); CALCIUM, SERUM 7.2 MG/DL (8.5-10.4); CHLORIDE, SERUM 110 MMOL/L (96-112); CO2 (CARBON DIOXIDE) 18 MMOL/L (24-34); CREATININE 0.81 MG/DL (0.55-1.02); GFR AFRICAN AMERICAN 78 ML/MIN (>=60); GFR NON AFRICAN AMERICAN 68 ML/MIN (>=60); GLUCOSE, SERUM 118 MG/DL (60-99); POTASSIUM, SERUM 3.6 MMOL/L (3.5-5.3); SODIUM, SERUM 141 MMOL/L (135-148)
[2016-11-06 05:45] LABS: BUN (BLOOD UREA NITROGEN) 34 MG/DL (6-23); CHLORIDE, SERUM 109 MMOL/L (96-112); CO2 (CARBON DIOXIDE) 18 MMOL/L (24-34); GFR AFRICAN AMERICAN 80 ML/MIN (>=60); GFR NON AFRICAN AMERICAN 69 ML/MIN (>=60); HEMATOCRIT 28.7 % (36.0-48.0); HEMOGLOBIN 9.4 g/dL (12.0-16.0); MEAN CORPUSCULAR HEMOGLOB 32.4 pg (26.0-34.0); MEAN PLATELET VOLUME 9.4 fL (9.2-13.0); PLATELET COUNT 472 10/3/uL (150-400); POTASSIUM, SERUM 3.8 MMOL/L (3.5-5.3); RBC DISTRIBUTION WIDTH 15.1 % (12.0-16.0); SODIUM, SERUM 141 MMOL/L (135-148)
[2016-11-06 05:46] LABS: MANUAL DIFF YES %; MEAN CORPUS HGB CONC 32.8 g/dL (32.0-36.0); WHITE BLOOD CELLS 20.1 10/3/uL (4.5-10.5)
[2016-11-06 05:47] LABS: GLUCOSE, SERUM 153 MG/DL (60-99)
[2016-11-06 06:02] LABS: BAND NEUTROPHILS 55 %; BURR CELLS 1+ (3-10/OIF) (0-2/OIF); METAMYELOCYTES 2 %; MONOCYTES 7 %; MONOCYTES ABSOLUTE (CALC) 1.41 10/3/uL (0.21-1.20); MYELOCYTES 2 %; NEUTROPHILS ABSOLUTE (CALC) 17.89 10/3/uL (2.02-8.40); PLATELET ESTIMATE SLT INC (ADEQUATE); SEGMENTED NEUTROPHIL (0) 34 %; TOTAL NUCLEATED CELLS 100
[2016-11-06 06:21] LABS: PROCALCITONIN 40.71 ng/mL (<0.5)
[2016-11-06 11:38] LABS: ALLENS TEST Pos; BE (BASE EXCESS) -6.4 MEQ/L (0 +/- 2.5); CARBOXYHEMOGLOBIN 0.3 % (0-3); HCO3 (ACTUAL BICARBONATE) 19.3 MEQ/L (23-27); HEMOBLOGIN CONTENT 10.1 G/DL (12-16); INSTRUMENT SERIAL # 8083; METHEMOGLOBIN 0.5 % (0-3); O2 CONTENT 13.3 VOL% (18-24); OPERATOR ID 32199; PCO2 (CO2 TENSION) 39 MMHG (35-45); PO2 (O2 TENSION) 75 MMHG (79-93); SAMPLE Arterial; pH 7.31 (7.37-7.43)
[2016-11-07 04:53] LABS: CALCIUM, SERUM 7.3 MG/DL (8.5-10.4); CHLORIDE, SERUM 113 MMOL/L (96-112); CO2 (CARBON DIOXIDE) 18 MMOL/L (24-34); CREATININE 0.51 MG/DL (0.55-1.02); GFR AFRICAN AMERICAN 104 ML/MIN (>=60); GFR NON AFRICAN AMERICAN 90 ML/MIN (>=60); GLUCOSE, SERUM 126 MG/DL (60-99); HEMATOCRIT 28.8 % (36.0-48.0); MEAN CORPUS HGB CONC 31.3 g/dL (32.0-36.0); MEAN CORPUSCULAR HEMOGLOB 31.4 pg (26.0-34.0); MEAN CORPUSCULAR VOLUME 100.3 fL (80-100); MEAN PLATELET VOLUME 9.3 fL (9.2-13.0); PLATELET COUNT 356 10/3/uL (150-400); POTASSIUM, SERUM 3.5 MMOL/L (3.5-5.3); RBC DISTRIBUTION WIDTH 15.5 % (12.0-16.0); RED CELL COUNT 2.87 10/6/uL (4.0-5.6); SODIUM, SERUM 142 MMOL/L (135-148)
[2016-11-07 04:55] LABS: BUN (BLOOD UREA NITROGEN) 30 MG/DL (6-23)
[2016-11-07 04:57] LABS: MANUAL DIFF YES %
[2016-11-07 05:30] LABS: BAND NEUTROPHILS 13 %; LYMPHOCYTES 1 %; LYMPHOCYTES ABSOLUTE (CALC) 0.15 10/3/uL (0.67-4.30); MONOCYTES 4 %; NEUTROPHILS ABSOLUTE (CALC) 14.25 10/3/uL (2.02-8.40); SEGMENTED NEUTROPHIL (0) 82 %; TOTAL NUCLEATED CELLS 100
[2016-11-07 05:31] LABS: MACROCYTES 1+ (5-10/OIF) (0-5/OIF); PLATELET ESTIMATE ADQ (ADEQUATE)
[2016-11-07 07:59] LABS: PROCALCITONIN 20.88 ng/mL (<0.5)
[2016-11-07 16:24] LABS: A/G RATIO 0.5 (0.7-1.9); ALBUMIN 1.7 G/DL (3.5-5.0); ALKALINE PHOSPHATASE 31 U/L (45-117); BUN (BLOOD UREA NITROGEN) 28 MG/DL (6-23); CHLORIDE, SERUM 114 MMOL/L (96-112); CO2 (CARBON DIOXIDE) 21 MMOL/L (24-34); CREATININE 0.51 MG/DL (0.55-1.02); GFR AFRICAN AMERICAN 104 ML/MIN (>=60); GFR NON AFRICAN AMERICAN 90 ML/MIN (>=60); GLOBULIN 3.7 G/DL (2.5-4.1); GLUCOSE, SERUM 135 MG/DL (60-99); POTASSIUM, SERUM 3.7 MMOL/L (3.5-5.3); PREALBUMIN 8.4 MG/DL (17.0-43.0); SGOT(AST) 39 U/L (5-40); SGPT(ALT) 29 U/L (5-65); SODIUM, SERUM 143 MMOL/L (135-148); TOTAL BILIRUBIN 0.3 MG/DL (0-1.2); TOTAL PROTEIN 5.4 G/DL (6.0-8.5)
[2016-11-08 04:34] LABS: BASOPHILS 0 %; EOSINOPHILS 0 %; HEMATOCRIT 27.9 % (36.0-48.0); HEMOGLOBIN 9.2 g/dL (12.0-16.0); IMMATURE GRANULOCYTES 0.4 %; IMMATURE GRANULOCYTES ABSOLUTE 0.07 10/3/uL (0.0-0.11); LYMPHOCYTES 3.8 %; LYMPHOCYTES ABSOLUTE 0.59 10/3/uL (0.67-4.30); MEAN CORPUSCULAR HEMOGLOB 31.6 pg (26.0-34.0); MEAN PLATELET VOLUME 9.5 fL (9.2-13.0); MONOCYTES 2.9 %; MONOCYTES ABSOLUTE 0.45 10/3/uL (0.21-1.20); NEUTROPHILS 92.9 %; NEUTROPHILS ABSOLUTE 14.52 10/3/uL (2.02-8.40); PLATELET COUNT 407 10/3/uL (150-400); RBC DISTRIBUTION WIDTH 15.3 % (12.0-16.0); RED CELL COUNT 2.91 10/6/uL (4.0-5.6); WHITE BLOOD CELLS 15.6 10/3/uL (4.5-10.5)
[2016-11-08 04:38] LABS: MANUAL DIFF NO %; MEAN CORPUSCULAR VOLUME 95.9 fL (80-100)
[2016-11-08 07:53] LABS: BUN (BLOOD UREA NITROGEN) 24 MG/DL (6-23); CALCIUM, SERUM 7.2 MG/DL (8.5-10.4); CHLORIDE, SERUM 107 MMOL/L (96-112); CO2 (CARBON DIOXIDE) 24 MMOL/L (24-34); CREATININE 0.54 MG/DL (0.55-1.02); FREE T4 1.03 NG/DL (0.76-1.46); GFR AFRICAN AMERICAN 102 ML/MIN (>=60); GFR NON AFRICAN AMERICAN 88 ML/MIN (>=60); GLUCOSE, SERUM 189 MG/DL (60-99); SODIUM, SERUM 142 MMOL/L (135-148)
[2016-11-08 07:59] LABS: POTASSIUM, SERUM 2.3 MMOL/L (3.5-5.3)
[2016-11-08 08:19] LABS: PREALBUMIN 9.1 MG/DL (17.0-43.0)
[2016-11-08 09:40] LABS: ALLENS TEST Pos; BE (BASE EXCESS) 1.7 MEQ/L (0 +/- 2.5); CARBOXYHEMOGLOBIN 0.5 % (0-3); DEVICE HFNC; HCO3 (ACTUAL BICARBONATE) 24.5 MEQ/L (23-27); HEMOBLOGIN CONTENT 10.5 G/DL (12-16); INSTRUMENT SERIAL # 8083; METHEMOGLOBIN 0.4 % (0-3); O2 CONTENT 13.4 VOL% (18-24); OPERATOR ID 32214; PCO2 (CO2 TENSION) 32 MMHG (35-45); PO2 (O2 TENSION) 60 MMHG (79-93); SAMPLE Arterial
[2016-11-08 10:59] LABS: TROPONIN I 0.03 NG/ML (<0.05)
[2016-11-08 13:34] LABS: PROCALCITONIN 7.78 ng/mL (<0.5)
[2016-11-09 04:31] LABS: BASOPHILS 0.1 %; BASOPHILS ABSOLUTE 0.01 10/3/uL (0.0-0.16); EOSINOPHILS 0 %; HEMATOCRIT 30.2 % (36.0-48.0); HEMOGLOBIN 9.9 g/dL (12.0-16.0); IMMATURE GRANULOCYTES 0.8 %; IMMATURE GRANULOCYTES ABSOLUTE 0.12 10/3/uL (0.0-0.11); LYMPHOCYTES 6.3 %; LYMPHOCYTES ABSOLUTE 0.89 10/3/uL (0.67-4.30); MEAN CORPUS HGB CONC 32.8 g/dL (32.0-36.0); MEAN CORPUSCULAR HEMOGLOB 31.5 pg (26.0-34.0); MEAN CORPUSCULAR VOLUME 96.2 fL (80-100); MEAN PLATELET VOLUME 9.6 fL (9.2-13.0); MONOCYTES 4.6 %; MONOCYTES ABSOLUTE 0.65 10/3/uL (0.21-1.20); NEUTROPHILS 88.2 %; NEUTROPHILS ABSOLUTE 12.46 10/3/uL (2.02-8.40); PLATELET COUNT 394 10/3/uL (150-400); RBC DISTRIBUTION WIDTH 15.3 % (12.0-16.0); RED CELL COUNT 3.14 10/6/uL (4.0-5.6); WHITE BLOOD CELLS 14.1 10/3/uL (4.5-10.5)
[2016-11-09 04:32] LABS: MANUAL DIFF NO %
[2016-11-09 04:41] LABS: A/G RATIO 0.5 (0.7-1.9); BUN (BLOOD UREA NITROGEN) 23 MG/DL (6-23); CALCIUM, SERUM 7.5 MG/DL (8.5-10.4); CHLORIDE, SERUM 102 MMOL/L (96-112); CREATININE 0.72 MG/DL (0.55-1.02); GFR AFRICAN AMERICAN 90 ML/MIN (>=60); GFR NON AFRICAN AMERICAN 78 ML/MIN (>=60); GLOBULIN 3.8 G/DL (2.5-4.1); GLUCOSE, SERUM 218 MG/DL (60-99); SGOT(AST) 25 U/L (5-40); SGPT(ALT) 22 U/L (5-65); SODIUM, SERUM 141 MMOL/L (135-148); TOTAL BILIRUBIN 0.3 MG/DL (0-1.2); TOTAL PROTEIN 5.8 G/DL (6.0-8.5)
[2016-11-09 04:42] LABS: ALKALINE PHOSPHATASE 50 U/L (45-117); CO2 (CARBON DIOXIDE) 29 MMOL/L (24-34)
[2016-11-10 05:38] LABS: BASOPHILS 0.1 %; BASOPHILS ABSOLUTE 0.01 10/3/uL (0.0-0.16); EOSINOPHILS 0.1 %; EOSINOPHILS ABSOLUTE 0.01 10/3/uL (0.0-0.53); HEMATOCRIT 28.4 % (36.0-48.0); HEMOGLOBIN 9.5 g/dL (12.0-16.0); IMMATURE GRANULOCYTES 2.3 %; IMMATURE GRANULOCYTES ABSOLUTE 0.27 10/3/uL (0.0-0.11); LYMPHOCYTES 10.5 %; LYMPHOCYTES ABSOLUTE 1.22 10/3/uL (0.67-4.30); MEAN CORPUS HGB CONC 33.5 g/dL (32.0-36.0); MEAN CORPUSCULAR HEMOGLOB 31.9 pg (26.0-34.0); MEAN CORPUSCULAR VOLUME 95.3 fL (80-100); MEAN PLATELET VOLUME 9.9 fL (9.2-13.0); MONOCYTES ABSOLUTE 0.93 10/3/uL (0.21-1.20); NEUTROPHILS ABSOLUTE 9.16 10/3/uL (2.02-8.40); PLATELET COUNT 370 10/3/uL (150-400); RBC DISTRIBUTION WIDTH 15.5 % (12.0-16.0); RED CELL COUNT 2.98 10/6/uL (4.0-5.6); WHITE BLOOD CELLS 11.6 10/3/uL (4.5-10.5)
[2016-11-10 05:40] LABS: MANUAL DIFF NO %
[2016-11-10 06:00] LABS: ALBUMIN 1.8 G/DL (3.5-5.0); BUN (BLOOD UREA NITROGEN) 23 MG/DL (6-23); CALCIUM, SERUM 7.6 MG/DL (8.5-10.4); CHLORIDE, SERUM 99 MMOL/L (96-112); CO2 (CARBON DIOXIDE) 31 MMOL/L (24-34); GFR AFRICAN AMERICAN 98 ML/MIN (>=60); GFR NON AFRICAN AMERICAN 85 ML/MIN (>=60); GLUCOSE, SERUM 213 MG/DL (60-99); POTASSIUM, SERUM 3.3 MMOL/L (3.5-5.3); SODIUM, SERUM 141 MMOL/L (135-148)
[2016-11-10 06:19] LABS: PHOSPHORUS, SERUM 0.6 MG/DL (2.5-4.5)
[2016-11-10 07:40] LABS: PROCALCITONIN 2.65 ng/mL (<0.5)
[2016-11-10 19:09] LABS: BUN (BLOOD UREA NITROGEN) 26 MG/DL (6-23); CALCIUM, SERUM 7.3 MG/DL (8.5-10.4); CHLORIDE, SERUM 102 MMOL/L (96-112); CO2 (CARBON DIOXIDE) 31 MMOL/L (24-34); CREATININE 0.56 MG/DL (0.55-1.02); GFR AFRICAN AMERICAN 101 ML/MIN (>=60); GFR NON AFRICAN AMERICAN 87 ML/MIN (>=60); GLUCOSE, SERUM 253 MG/DL (60-99); POTASSIUM, SERUM 4.8 MMOL/L (3.5-5.3); SODIUM, SERUM 141 MMOL/L (135-148)
[2016-11-11 08:13] LABS: BASOPHILS 0.2 %; BASOPHILS ABSOLUTE 0.03 10/3/uL (0.0-0.16); EOSINOPHILS 1.8 %; EOSINOPHILS ABSOLUTE 0.24 10/3/uL (0.0-0.53); HEMATOCRIT 31.7 % (36.0-48.0); HEMOGLOBIN 10.1 g/dL (12.0-16.0); IMMATURE GRANULOCYTES 2.2 %; LYMPHOCYTES 12.5 %; MEAN CORPUS HGB CONC 31.9 g/dL (32.0-36.0); MEAN CORPUSCULAR HEMOGLOB 31.4 pg (26.0-34.0); MEAN CORPUSCULAR VOLUME 98.4 fL (80-100); MEAN PLATELET VOLUME 9.8 fL (9.2-13.0); MONOCYTES 3.8 %; MONOCYTES ABSOLUTE 0.51 10/3/uL (0.21-1.20); NEUTROPHILS 79.5 %; NEUTROPHILS ABSOLUTE 10.82 10/3/uL (2.02-8.40); PLATELET COUNT 322 10/3/uL (150-400); RBC DISTRIBUTION WIDTH 15.3 % (12.0-16.0); RED CELL COUNT 3.22 10/6/uL (4.0-5.6); WHITE BLOOD CELLS 13.6 10/3/uL (4.5-10.5)
[2016-11-11 08:14] LABS: MANUAL DIFF NO %
[2016-11-11 08:23] LABS: BUN (BLOOD UREA NITROGEN) 22 MG/DL (6-23); CALCIUM, SERUM 7.9 MG/DL (8.5-10.4); CHLORIDE, SERUM 99 MMOL/L (96-112); CO2 (CARBON DIOXIDE) 34 MMOL/L (24-34); CREATININE 0.58 MG/DL (0.55-1.02); GFR AFRICAN AMERICAN 99 ML/MIN (>=60); GFR NON AFRICAN AMERICAN 86 ML/MIN (>=60); GLUCOSE, SERUM 102 MG/DL (60-99); POTASSIUM, SERUM 3.6 MMOL/L (3.5-5.3); SODIUM, SERUM 139 MMOL/L (135-148)
[2016-11-12 05:32] LABS: HEMOGLOBIN 9.4 g/dL (12.0-16.0); MEAN CORPUSCULAR VOLUME 96.9 fL (80-100); PLATELET COUNT 305 10/3/uL (150-400); RBC DISTRIBUTION WIDTH 15.7 % (12.0-16.0); RED CELL COUNT 2.94 10/6/uL (4.0-5.6)
[2016-11-12 05:33] LABS: HEMATOCRIT 28.5 % (36.0-48.0); MANUAL DIFF YES %
[2016-11-12 05:54] LABS: BUN (BLOOD UREA NITROGEN) 19 MG/DL (6-23); CALCIUM, SERUM 8.1 MG/DL (8.5-10.4); CHLORIDE, SERUM 100 MMOL/L (96-112); CO2 (CARBON DIOXIDE) 32 MMOL/L (24-34); CREATININE 0.46 MG/DL (0.55-1.02); GFR AFRICAN AMERICAN 107 ML/MIN (>=60); GFR NON AFRICAN AMERICAN 93 ML/MIN (>=60); GLUCOSE, SERUM 104 MG/DL (60-99); POTASSIUM, SERUM 4.2 MMOL/L (3.5-5.3); SODIUM, SERUM 139 MMOL/L (135-148)
[2016-11-12 05:56] LABS: PHOSPHORUS, SERUM 1.9 MG/DL (2.5-4.5)
[2016-11-12 06:12] LABS: PROCALCITONIN 0.65 ng/mL (<0.5)
[2016-11-12 06:25] LABS: BAND NEUTROPHILS 10 %; EOSINOPHILS 1 %; EOSINOPHILS ABSOLUTE (CALC) 0.12 10/3/uL (0.0-0.53); LYMPHOCYTES 9 %; LYMPHOCYTES ABSOLUTE (CALC) 1.08 10/3/uL (0.67-4.30); PLATELET ESTIMATE ADQ (ADEQUATE); POLYCHROMASIA 1+ (2-5/OIF) (0-1/OIF); SEGMENTED NEUTROPHIL (0) 80 %; TOTAL NUCLEATED CELLS 100; TOXIC GRANULATION 2+
[2016-11-12 06:41] LABS: C-REACTIVE PROTEIN 18.2 MG/L (<8.0)
[2016-11-13 04:41] LABS: INSTRUMENT SERIAL # 35151; pH 7.58 (7.37-7.43)
[2016-11-13 04:42] LABS: ALLENS TEST Pos; BE (BASE EXCESS) 5.2 MEQ/L (0 +/- 2.5); CARBOXYHEMOGLOBIN 0.3 % (0-3); DEVICE HFNC; HCO3 (ACTUAL BICARBONATE) 26.6 MEQ/L (23-27); HEMOBLOGIN CONTENT 10.9 G/DL (12-16); METHEMOGLOBIN 0.5 % (0-3); O2 CONTENT 14.3 VOL% (18-24); OPERATOR ID 35785; PCO2 (CO2 TENSION) 29 MMHG (35-45); PO2 (O2 TENSION) 67 MMHG (79-93); SAMPLE Arterial
[2016-11-13 04:52] LABS: HEMATOCRIT 29.4 % (36.0-48.0); HEMOGLOBIN 9.7 g/dL (12.0-16.0); MEAN CORPUSCULAR HEMOGLOB 31.8 pg (26.0-34.0); MEAN CORPUSCULAR VOLUME 96.4 fL (80-100); MEAN PLATELET VOLUME 10.5 fL (9.2-13.0); PLATELET COUNT 309 10/3/uL (150-400); RBC DISTRIBUTION WIDTH 15.9 % (12.0-16.0); RED CELL COUNT 3.05 10/6/uL (4.0-5.6); WHITE BLOOD CELLS 14.3 10/3/uL (4.5-10.5)
[2016-11-13 04:58] LABS: MANUAL DIFF YES %
[2016-11-13 05:10] LABS: BUN (BLOOD UREA NITROGEN) 17 MG/DL (6-23); CALCIUM, SERUM 8.1 MG/DL (8.5-10.4); CHLORIDE, SERUM 100 MMOL/L (96-112); GFR AFRICAN AMERICAN 104 ML/MIN (>=60); GFR NON AFRICAN AMERICAN 90 ML/MIN (>=60); GLUCOSE, SERUM 93 MG/DL (60-99); SODIUM, SERUM 137 MMOL/L (135-148)
[2016-11-13 05:20] LABS: CO2 (CARBON DIOXIDE) 26 MMOL/L (24-34); PHOSPHORUS, SERUM 3.5 MG/DL (2.5-4.5)
[2016-11-13 05:30] LABS: BAND NEUTROPHILS 5 %; LYMPHOCYTES 11 %; LYMPHOCYTES ABSOLUTE (CALC) 1.57 10/3/uL (0.67-4.30); NEUTROPHILS ABSOLUTE (CALC) 12.73 10/3/uL (2.02-8.40); SEGMENTED NEUTROPHIL (0) 84 %; TOTAL NUCLEATED CELLS 100
[2016-11-13 05:31] LABS: PLATELET ESTIMATE ADQ (ADEQUATE)
[2016-11-14 06:20] LABS: BASOPHILS 0.1 %; BASOPHILS ABSOLUTE 0.01 10/3/uL (0.0-0.16); EOSINOPHILS 1.1 %; EOSINOPHILS ABSOLUTE 0.15 10/3/uL (0.0-0.53); HEMATOCRIT 28.6 % (36.0-48.0); HEMOGLOBIN 9.4 g/dL (12.0-16.0); IMMATURE GRANULOCYTES 0.7 %; LYMPHOCYTES 6.9 %; LYMPHOCYTES ABSOLUTE 0.94 10/3/uL (0.67-4.30); MEAN CORPUS HGB CONC 32.9 g/dL (32.0-36.0); MEAN CORPUSCULAR HEMOGLOB 31.9 pg (26.0-34.0); MEAN CORPUSCULAR VOLUME 96.9 fL (80-100); MEAN PLATELET VOLUME 10.6 fL (9.2-13.0); MONOCYTES 4.3 %; MONOCYTES ABSOLUTE 0.59 10/3/uL (0.21-1.20); NEUTROPHILS 86.9 %; NEUTROPHILS ABSOLUTE 11.82 10/3/uL (2.02-8.40); PLATELET COUNT 299 10/3/uL (150-400); RBC DISTRIBUTION WIDTH 16.1 % (12.0-16.0); RED CELL COUNT 2.95 10/6/uL (4.0-5.6); WHITE BLOOD CELLS 13.6 10/3/uL (4.5-10.5)
[2016-11-14 06:22] LABS: MANUAL DIFF NO %
[2016-11-14 06:40] LABS: A/G RATIO 0.5 (0.7-1.9); ALBUMIN 1.8 G/DL (3.5-5.0); ALKALINE PHOSPHATASE 30 U/L (45-117); BUN (BLOOD UREA NITROGEN) 15 MG/DL (6-23); CALCIUM, SERUM 7.9 MG/DL (8.5-10.4); CHLORIDE, SERUM 101 MMOL/L (96-112); CO2 (CARBON DIOXIDE) 28 MMOL/L (24-34); CREATININE 0.36 MG/DL (0.55-1.02); GFR AFRICAN AMERICAN 116 ML/MIN (>=60); GFR NON AFRICAN AMERICAN 100 ML/MIN (>=60); GLOBULIN 3.4 G/DL (2.5-4.1); GLUCOSE, SERUM 113 MG/DL (60-99); PHOSPHORUS, SERUM 2.4 MG/DL (2.5-4.5); POTASSIUM, SERUM 3.8 MMOL/L (3.5-5.3); PREALBUMIN 21.6 MG/DL (17.0-43.0); SGOT(AST) 23 U/L (5-40); SGPT(ALT) 10 U/L (5-65); SODIUM, SERUM 138 MMOL/L (135-148); TOTAL BILIRUBIN 0.3 MG/DL (0-1.2); TOTAL PROTEIN 5.2 G/DL (6.0-8.5)
[2016-11-14 07:23] LABS: PROCALCITONIN 0.34 ng/mL (<0.5)
[2016-11-15 05:57] LABS: BASOPHILS 0.1 %; BASOPHILS ABSOLUTE 0.01 10/3/uL (0.0-0.16); EOSINOPHILS 0.3 %; EOSINOPHILS ABSOLUTE 0.05 10/3/uL (0.0-0.53); HEMATOCRIT 30.5 % (36.0-48.0); HEMOGLOBIN 9.8 g/dL (12.0-16.0); IMMATURE GRANULOCYTES 0.4 %; IMMATURE GRANULOCYTES ABSOLUTE 0.06 10/3/uL (0.0-0.11); LYMPHOCYTES 6.1 %; LYMPHOCYTES ABSOLUTE 0.91 10/3/uL (0.67-4.30); MANUAL DIFF NO %; MEAN CORPUS HGB CONC 32.1 g/dL (32.0-36.0); MEAN CORPUSCULAR HEMOGLOB 31.2 pg (26.0-34.0); MEAN CORPUSCULAR VOLUME 97.1 fL (80-100); MEAN PLATELET VOLUME 10.7 fL (9.2-13.0); MONOCYTES 6.4 %; MONOCYTES ABSOLUTE 0.95 10/3/uL (0.21-1.20); NEUTROPHILS 86.7 %; NEUTROPHILS ABSOLUTE 12.96 10/3/uL (2.02-8.40); PLATELET COUNT 350 10/3/uL (150-400); RBC DISTRIBUTION WIDTH 16.1 % (12.0-16.0); RED CELL COUNT 3.14 10/6/uL (4.0-5.6); WHITE BLOOD CELLS 14.9 10/3/uL (4.5-10.5)
[2016-11-15 06:07] LABS: BUN (BLOOD UREA NITROGEN) 16 MG/DL (6-23); CALCIUM, SERUM 7.9 MG/DL (8.5-10.4); CHLORIDE, SERUM 100 MMOL/L (96-112); CO2 (CARBON DIOXIDE) 29 MMOL/L (24-34); CREATININE 0.49 MG/DL (0.55-1.02); GFR AFRICAN AMERICAN 105 ML/MIN (>=60); GFR NON AFRICAN AMERICAN 91 ML/MIN (>=60); PHOSPHORUS, SERUM 2.7 MG/DL (2.5-4.5); POTASSIUM, SERUM 3.8 MMOL/L (3.5-5.3); SODIUM, SERUM 137 MMOL/L (135-148)
[2016-11-15 06:16] LABS: GLUCOSE, SERUM 89 MG/DL (60-99)
[2016-11-15 06:55] LABS: PROCALCITONIN 0.25 ng/mL (<0.5)
[2016-11-16 04:48] LABS: BASOPHILS 0.1 %; BASOPHILS ABSOLUTE 0.01 10/3/uL (0.0-0.16); EOSINOPHILS 0.3 %; EOSINOPHILS ABSOLUTE 0.03 10/3/uL (0.0-0.53); HEMOGLOBIN 9.7 g/dL (12.0-16.0); IMMATURE GRANULOCYTES 0.3 %; IMMATURE GRANULOCYTES ABSOLUTE 0.04 10/3/uL (0.0-0.11); LYMPHOCYTES 7.9 %; LYMPHOCYTES ABSOLUTE 0.94 10/3/uL (0.67-4.30); MEAN CORPUS HGB CONC 32.3 g/dL (32.0-36.0); MEAN CORPUSCULAR HEMOGLOB 31.3 pg (26.0-34.0); MEAN CORPUSCULAR VOLUME 96.8 fL (80-100); MEAN PLATELET VOLUME 10.7 fL (9.2-13.0); MONOCYTES 6.5 %; MONOCYTES ABSOLUTE 0.78 10/3/uL (0.21-1.20); NEUTROPHILS 84.9 %; NEUTROPHILS ABSOLUTE 10.13 10/3/uL (2.02-8.40); PLATELET COUNT 353 10/3/uL (150-400); RBC DISTRIBUTION WIDTH 16.1 % (12.0-16.0); WHITE BLOOD CELLS 11.9 10/3/uL (4.5-10.5)
[2016-11-16 04:54] LABS: MANUAL DIFF NO %
[2016-11-16 04:59] LABS: BUN (BLOOD UREA NITROGEN) 17 MG/DL (6-23); CALCIUM, SERUM 8.3 MG/DL (8.5-10.4); CHLORIDE, SERUM 101 MMOL/L (96-112); CO2 (CARBON DIOXIDE) 28 MMOL/L (24-34); CREATININE 0.51 MG/DL (0.55-1.02); GFR AFRICAN AMERICAN 104 ML/MIN (>=60); GFR NON AFRICAN AMERICAN 90 ML/MIN (>=60); GLUCOSE, SERUM 128 MG/DL (60-99); PHOSPHORUS, SERUM 2.4 MG/DL (2.5-4.5); POTASSIUM, SERUM 3.7 MMOL/L (3.5-5.3); SODIUM, SERUM 139 MMOL/L (135-148)
[2016-11-18 06:26] LABS: A/G RATIO 0.5 (0.7-1.9); ALBUMIN 1.9 G/DL (3.5-5.0); ALKALINE PHOSPHATASE 26 U/L (45-117); BUN (BLOOD UREA NITROGEN) 16 MG/DL (6-23); CALCIUM, SERUM 8.2 MG/DL (8.5-10.4); CHLORIDE, SERUM 102 MMOL/L (96-112); CO2 (CARBON DIOXIDE) 29 MMOL/L (24-34); CREATININE 0.41 MG/DL (0.55-1.02); GFR AFRICAN AMERICAN 112 ML/MIN (>=60); GFR NON AFRICAN AMERICAN 96 ML/MIN (>=60); GLOBULIN 3.6 G/DL (2.5-4.1); GLUCOSE, SERUM 113 MG/DL (60-99); POTASSIUM, SERUM 4.2 MMOL/L (3.5-5.3); SGOT(AST) 21 U/L (5-40); SGPT(ALT) 10 U/L (5-65); SODIUM, SERUM 136 MMOL/L (135-148); TOTAL BILIRUBIN 0.3 MG/DL (0-1.2); TOTAL PROTEIN 5.5 G/DL (6.0-8.5)
[2016-11-18 06:57] LABS: BASOPHILS 0.1 %; BASOPHILS ABSOLUTE 0.01 10/3/uL (0.0-0.16); EOSINOPHILS 1.1 %; EOSINOPHILS ABSOLUTE 0.09 10/3/uL (0.0-0.53); HEMATOCRIT 28.2 % (36.0-48.0); HEMOGLOBIN 8.9 g/dL (12.0-16.0); IMMATURE GRANULOCYTES 0.2 %; IMMATURE GRANULOCYTES ABSOLUTE 0.02 10/3/uL (0.0-0.11); LYMPHOCYTES 8.6 %; LYMPHOCYTES ABSOLUTE 0.71 10/3/uL (0.67-4.30); MEAN CORPUS HGB CONC 31.6 g/dL (32.0-36.0); MEAN CORPUSCULAR VOLUME 98.3 fL (80-100); MEAN PLATELET VOLUME 10.1 fL (9.2-13.0); MONOCYTES 8.1 %; MONOCYTES ABSOLUTE 0.67 10/3/uL (0.21-1.20); NEUTROPHILS 81.9 %; NEUTROPHILS ABSOLUTE 6.75 10/3/uL (2.02-8.40); PLATELET COUNT 368 10/3/uL (150-400); RBC DISTRIBUTION WIDTH 16.2 % (12.0-16.0); RED CELL COUNT 2.87 10/6/uL (4.0-5.6); WHITE BLOOD CELLS 8.3 10/3/uL (4.5-10.5)
[2016-11-18 06:58] LABS: MANUAL DIFF NO %
[2016-11-18 07:04] LABS: PROCALCITONIN 0.12 ng/mL (<0.5)
[2016-11-19 05:15] LABS: BUN (BLOOD UREA NITROGEN) 16 MG/DL (6-23); CALCIUM, SERUM 8.4 MG/DL (8.5-10.4); CHLORIDE, SERUM 101 MMOL/L (96-112); CO2 (CARBON DIOXIDE) 32 MMOL/L (24-34); CREATININE 0.43 MG/DL (0.55-1.02); GFR AFRICAN AMERICAN 110 ML/MIN (>=60); GFR NON AFRICAN AMERICAN 95 ML/MIN (>=60); POTASSIUM, SERUM 4.1 MMOL/L (3.5-5.3); SODIUM, SERUM 139 MMOL/L (135-148)
[2016-11-19 05:18] LABS: GLUCOSE, SERUM 88 MG/DL (60-99); PHOSPHORUS, SERUM 3.8 MG/DL (2.5-4.5)
[2016-11-20 04:36] LABS: BASOPHILS 0.2 %; BASOPHILS ABSOLUTE 0.01 10/3/uL (0.0-0.16); EOSINOPHILS 0.8 %; EOSINOPHILS ABSOLUTE 0.05 10/3/uL (0.0-0.53); HEMATOCRIT 30.1 % (36.0-48.0); HEMOGLOBIN 9.5 g/dL (12.0-16.0); IMMATURE GRANULOCYTES 0.2 %; IMMATURE GRANULOCYTES ABSOLUTE 0.01 10/3/uL (0.0-0.11); LYMPHOCYTES 11.3 %; MEAN CORPUS HGB CONC 31.6 g/dL (32.0-36.0); MEAN CORPUSCULAR HEMOGLOB 31.1 pg (26.0-34.0); MEAN CORPUSCULAR VOLUME 98.7 fL (80-100); MEAN PLATELET VOLUME 9.7 fL (9.2-13.0); MONOCYTES 7.3 %; MONOCYTES ABSOLUTE 0.45 10/3/uL (0.21-1.20); NEUTROPHILS 80.2 %; NEUTROPHILS ABSOLUTE 4.97 10/3/uL (2.02-8.40); PLATELET COUNT 393 10/3/uL (150-400); RBC DISTRIBUTION WIDTH 16.4 % (12.0-16.0); RED CELL COUNT 3.05 10/6/uL (4.0-5.6); WHITE BLOOD CELLS 6.2 10/3/uL (4.5-10.5)
[2016-11-20 04:40] LABS: MANUAL DIFF NO %
[2016-11-20 04:48] LABS: BUN (BLOOD UREA NITROGEN) 15 MG/DL (6-23); CALCIUM, SERUM 8.4 MG/DL (8.5-10.4); CHLORIDE, SERUM 101 MMOL/L (96-112); CO2 (CARBON DIOXIDE) 30 MMOL/L (24-34); CREATININE 0.44 MG/DL (0.55-1.02); GFR AFRICAN AMERICAN 109 ML/MIN (>=60); GFR NON AFRICAN AMERICAN 94 ML/MIN (>=60); POTASSIUM, SERUM 4.4 MMOL/L (3.5-5.3); SODIUM, SERUM 137 MMOL/L (135-148)
[2016-11-20 04:51] LABS: GLUCOSE, SERUM 157 MG/DL (60-99)
[2016-11-20 06:09] LABS: PROCALCITONIN 0.13 ng/mL (<0.5)
[2016-11-20 12:03] LABS: C-REACTIVE PROTEIN 14.3 MG/L (<8.0)
[2016-11-21 05:06] LABS: A/G RATIO 0.5 (0.7-1.9); ALBUMIN 1.9 G/DL (3.5-5.0); ALKALINE PHOSPHATASE 28 U/L (45-117); BUN (BLOOD UREA NITROGEN) 13 MG/DL (6-23); CALCIUM, SERUM 8.5 MG/DL (8.5-10.4); CHLORIDE, SERUM 102 MMOL/L (96-112); CO2 (CARBON DIOXIDE) 26 MMOL/L (24-34); CREATININE 0.39 MG/DL (0.55-1.02); GFR AFRICAN AMERICAN 113 ML/MIN (>=60); GFR NON AFRICAN AMERICAN 98 ML/MIN (>=60); GLOBULIN 3.8 G/DL (2.5-4.1); PHOSPHORUS, SERUM 3.4 MG/DL (2.5-4.5); POTASSIUM, SERUM 4.8 MMOL/L (3.5-5.3); PREALBUMIN 20.1 MG/DL (17.0-43.0); SGPT(ALT) 18 U/L (5-65); SODIUM, SERUM 137 MMOL/L (135-148); TOTAL BILIRUBIN 0.3 MG/DL (0-1.2); TOTAL PROTEIN 5.7 G/DL (6.0-8.5)
[2016-11-21 05:08] LABS: C-REACTIVE PROTEIN 24.7 MG/L (<8.0); GLUCOSE, SERUM 122 MG/DL (60-99); SGOT(AST) 29 U/L (5-40)
[2016-11-21 05:11] LABS: HEMATOCRIT 31.3 % (36.0-48.0); HEMOGLOBIN 9.6 g/dL (12.0-16.0); MEAN CORPUS HGB CONC 30.7 g/dL (32.0-36.0); MEAN CORPUSCULAR HEMOGLOB 30.9 pg (26.0-34.0); MEAN CORPUSCULAR VOLUME 100.6 fL (80-100); MEAN PLATELET VOLUME 9.6 fL (9.2-13.0); PLATELET COUNT 317 10/3/uL (150-400); RBC DISTRIBUTION WIDTH 16.5 % (12.0-16.0); RED CELL COUNT 3.11 10/6/uL (4.0-5.6); WHITE BLOOD CELLS 5.5 10/3/uL (4.5-10.5)
[2016-11-21 05:13] LABS: MANUAL DIFF YES %
[2016-11-21 06:25] LABS: LYMPHOCYTES 11 %; LYMPHOCYTES ABSOLUTE (CALC) 0.61 10/3/uL (0.67-4.30); MONOCYTES 10 %; MONOCYTES ABSOLUTE (CALC) 0.55 10/3/uL (0.21-1.20); NEUTROPHILS ABSOLUTE (CALC) 4.35 10/3/uL (2.02-8.40); SEGMENTED NEUTROPHIL (0) 79 %; TOTAL NUCLEATED CELLS 100
[2016-11-21 06:26] LABS: ANISOCYTOSIS 1+ (5-10/OIF) (0-5/OIF); MACROCYTES 1+ (5-10/OIF) (0-5/OIF); PLATELET ESTIMATE ADQ (ADEQUATE)
[2017-01-03] MEDS ORDERED: LOVENOX40 SC (00:33)
[2017-01-03] MEDS ORDERED: HUMALOG SC (00:34)
[2017-01-03] MEDS ORDERED: LEVEMIR SC (00:35)
[2017-01-03] MEDS ORDERED: DUONEB INH (00:36)
[2017-01-03] MEDS ORDERED: ASAB PEG (00:36)
[2017-01-03] MEDS ORDERED: SYN125 PEG (00:36)
[2017-01-03] MEDS ORDERED: PRIN10 PEG (00:36)
[2017-01-03] MEDS ORDERED: KCL20UDL PEG (00:37)
[2017-01-03] MEDS ORDERED: FLORASTOR250 MG PEG (00:37)
[2017-01-03] MEDS ORDERED: PROTONI1 PEG (00:38)
[2017-01-03] MEDS ORDERED: COREG6 PEG (00:38)
[2017-01-03] MEDS ORDERED: LIPITOR80 MG PEG (00:38)
[2017-01-03] MEDS ORDERED: ZOFRAN4 PEG (00:39)
[2017-01-03] MEDS ORDERED: ACETSUP650 PR (00:39)
[2017-01-03] MEDS ORDERED: PLAVIX PO (04:26)
[2017-01-22] MEDS ORDERED: LOVENOX40 SC (01:50)
[2017-01-22] MEDS ORDERED: PLAVIX PEG (01:50)
[2017-01-22] MEDS ORDERED: LEVEMFLXPN SC (01:51)
[2017-01-22] MEDS ORDERED: ASAB PEG (01:51)
[2017-01-22] MEDS ORDERED: HUMALOG SC (01:51)
[2017-01-22] MEDS ORDERED: FLORASTOR250 MG PEG (01:53)
[2017-01-22] MEDS ORDERED: KCL20UDL PEG (01:53)
[2017-01-22] MEDS ORDERED: LIPITOR80 MG PEG (01:54)
[2017-01-22] MEDS ORDERED: COREG25 PEG (01:55)
[2017-01-22] MEDS ORDERED: PROTONI1 PEG (01:55)
[2017-01-22] MEDS ORDERED: PRIN20 PEG (01:56)
[2017-01-22] MEDS ORDERED: APRES50 PEG (01:56)
[2017-01-22] MEDS ORDERED: DUONEB INH ×2 (01:56→01:57)
[2017-01-22] MEDS ORDERED: BROVANA15 MCG INH (01:57)
[2017-01-22] MEDS ORDERED: ACETSUP650 PR (01:58)
[2017-01-22] MEDS ORDERED: ZOFRAN4 PEG (01:58)
[2017-01-22] MEDS ORDERED: SYN.15 PEG (01:59)
[2017-01-22] MEDS ORDERED: RISAMINE OINTMENT TOP (02:00)
[2017-02-11] MEDS ORDERED: PLAVIX PEG (19:08)
[2017-02-11] MEDS ORDERED: LOVENOX40 SC (19:09)
[2017-02-11] MEDS ORDERED: NOVOLOG SC (19:10)
[2017-02-11] MEDS ORDERED: LEVEMIR SC (19:12)
[2017-02-11] MEDS ORDERED: SYN.15 PEG (19:13)
[2017-02-11] MEDS ORDERED: PROTONI1 PEG (19:13)
[2017-02-11] MEDS ORDERED: NORV5 PEG (19:14)
[2017-02-11] MEDS ORDERED: TEARS PURE OPH (19:14)
[2017-02-11] MEDS ORDERED: ASAB PEG (19:14)
[2017-02-11] MEDS ORDERED: COREG25 PEG (19:15)
[2017-02-11] MEDS ORDERED: ZESTRIL30 MG PEG (19:15)
[2017-02-11] MEDS ORDERED: KCL20UDL PEG (19:16)
[2017-02-11] MEDS ORDERED: FLORASTOR250 MG PEG (19:16)
[2017-02-11] MEDS ORDERED: LIPITOR10 PEG (19:19)
[2017-02-11] MEDS ORDERED: DUONEB INH ×2 (19:19→19:29)
[2017-02-11] MEDS ORDERED: 8 HOUR650 MG PEG (19:21)
[2017-02-11] MEDS ORDERED: BROVANA15 MCG INH (19:21)
[2017-02-11] MEDS ORDERED: ACETSUP650 PR (19:22)
[2017-02-11] MEDS ORDERED: DSS PEG (19:23)
[2017-02-11] MEDS ORDERED: ZOFRAN ODT4 MG PO (19:27)
[2017-02-11] MEDS ORDERED: ALBUTEROL0.083 % INH (19:28)
[2017-02-11] MEDS ORDERED: RISAMINE OINTMENT TOP (19:31)
== END 2016-11-21 16:44 | disposition left against medical advice (07) | DRG 871 ==
LOC: ER 08:12 → IMCU 08:36 → 6NO 11-10 18:52
PROVIDERS: Emergency Medicine; Hospitalist; Internal Medicine; Physician Assistant Medical
PROC: 5A09357 Assistance with Respiratory Ventilation, Less than 24 Consecutive Hours, Continuous Positive Airway Pressure (ICD-10-PCS; principal; 2016-11-05)
PROC: 02HV33Z Insertion of Infusion Device into Superior Vena Cava, Percutaneous Approach (ICD-10-PCS; 2016-11-05)
PROC: 4A02X4A Measurement of Cardiac Electrical Activity, Guidance, External Approach (ICD-10-PCS; 2016-11-05)
DX: A41.9 Sepsis, unspecified organism (principal); J69.0 Pneumonitis due to inhalation of food and vomit; J96.21 Acute and chronic respiratory failure with hypoxia; R65.21 Severe sepsis with septic shock; E43 Unspecified severe protein-calorie malnutrition; J84.9 Interstitial pulmonary disease, unspecified; J15.211 Pneumonia due to Methicillin susceptible Staphylococcus aureus; J15.6 Pneumonia due to other Gram-negative bacteria; K26.9 Duodenal ulcer, unspecified as acute or chronic, without hemorrhage or perforation; E11.65 Type 2 diabetes mellitus with hyperglycemia; T83.511A Infection and inflammatory reaction due to indwelling urethral catheter, initial encounter; I69.354 Hemiplegia and hemiparesis following cerebral infarction affecting left non-dominant side; I47.1 Supraventricular tachycardia; N39.0 Urinary tract infection, site not specified; I27.2 Other secondary pulmonary hypertension; J84.10 Pulmonary fibrosis, unspecified; I69.319 Unspecified symptoms and signs involving cognitive functions following cerebral infarction; F01.50 Vascular dementia, unspecified severity, without behavioral disturbance, psychotic disturbance, mood disturbance, and anxiety; J98.4 Other disorders of lung; Z99.81 Dependence on supplemental oxygen; K52.832 Lymphocytic colitis; M79.7 Fibromyalgia; F32.9 Major depressive disorder, single episode, unspecified; E03.9 Hypothyroidism, unspecified; G89.4 Chronic pain syndrome; D64.9 Anemia, unspecified; I69.391 Dysphagia following cerebral infarction; R13.12 Dysphagia, oropharyngeal phase; E87.6 Hypokalemia; E83.42 Hypomagnesemia; B96.4 Proteus (mirabilis) (morganii) as the cause of diseases classified elsewhere; Z93.1 Gastrostomy status; Z90.49 Acquired absence of other specified parts of digestive tract; Z90.710 Acquired absence of both cervix and uterus; Z96.651 Presence of right artificial knee joint; Z77.22 Contact with and (suspected) exposure to environmental tobacco smoke (acute) (chronic); Z87.440 Personal history of urinary (tract) infections; Z83.3 Family history of diabetes mellitus; Z79.4 Long term (current) use of insulin; Z68.29 Body mass index [BMI] 29.0-29.9, adult; Z79.82 Long term (current) use of aspirin; Z79.02 Long term (current) use of antithrombotics/antiplatelets
CPT/HCPCS: 31720; 36569; 36600; 71010; 74176; 80048; 80053; 80069; 80076; 81001; 82805; 82962; 83605; 83735; 83880; 84100; 84132; 84134; 84145; 84439; 84443; 84484; 85025; 85610; 85730; 86140; 87040; 87045; 87046; 87046-59; 87070; 87077; 87086; 87150; 87186; 87205; 87493; 87493-59; 87641; 87899; 87899-59; 89055; 92523-GN; 92610-GN; 93005; 94640; 94660; 97110-GO; 97110-GP; 97162-GP; 97166-GO; 97530-GP; 99291; A9270-GY; C1751; C9113; J0690; J0692; J1940; J2405; J2543; J2920; J3370; J3475

== ENCOUNTER 2016-12-20 13:52 | Inpatient (IN) | payer MEDICARE, OTHER ==
--- NOTE | ~2016-12-20 | CN ---
Consultation Report [facility] [address] [place]. [address] NAME: TERESITA PAREKH : 34 STATUS : ADM IN PAT#: [id number] AGE: 81 ADM/REG DATE : 12/20/16 MR#: [id number] REPORT SERV DATE: 12/22/16 DICTATED BY: DATE: REPORT STATUS : Draft TRANSCRIBED BY: MODL DATE: 12/22/16 NEUROLOGY CONSULTATION DATE OF CONSULTATION: 12/22/2016 REASON FOR CONSULT: Possible seizure. HISTORY OF PRESENT ILLNESS: This is an 81-year-old female who presented to [facility] on 12/20/2016 secondary to aspiration pneumonia. The patient was doing well on antibiotic, was noted to be awake, however, when the patient's hospitalist, Dr. Blair was in the room, the patient was noted to have a facial twitching. It is unclear if patient's mental status was impaired or not. The patient on evaluation was not noted to have any twitching episodes, no previous history of seizure was noted. The patient does have a history of previous EEG in the past. Otherwise, the patient was noted to have fever prior to the hospitalization, with the patient on 15 L O2 oxygen prior to hospital admission. PAST MEDICAL HISTORY: Significant for previous history of septic shock required pressor therapy from 11/05/2016 to 11/06/2016 as well as history of recurrent aspiration pneumonia, history of oropharyngeal dysphagia secondary to stroke status post PEG tube placement as well as history of an acute on chronic hypoxemic respiratory failure. The patient also has had history of interstitial lung disease, history of multiple strokes in 2017, urinary tract infection as well as type 2 diabetes, hypothyroidism, duodenal ulcer, chronic pain syndrome, C-spine degenerative disc disease, history of paroxysmal supraventricular tachycardia, lymphocytic colitis, hypertension. ALLERGIES: AT THIS TIME OF EVALUATION, THE PATIENT WAS NOTED TO HAVE ALLERGY TO SULFA WELL TICLOPIDINE. SOCIAL HISTORY: No current tobacco, alcohol, or illicit drug usage. FAMILY HISTORY: Significant for heart disease, diabetes, and lung cancer. MEDICATIONS: The patient's current medications consist of aspirin, Coreg, DuoNebs, Florastor, vancomycin, Levemir, Lipitor, Lovenox, Maxipime, NovoLog, Plavix, potassium, lisinopril, Protonix, Synthroid. REVIEW OF SYSTEMS: Review of systems unable to be obtained secondary to the patient's current mental status at the time of evaluation. PHYSICAL EXAMINATION: VITAL SIGNS: The patient was noted to have overnight vital signs with T-max of 99.7, heart rate of 79 to 103, respirations of 18 to 20, and blood pressure of 122 to 183 over 60 to 84. GENERAL: The patient is well developed, well nourished, in no acute distress. Consultation Report [address] [place]. [address] NAME: TERESITA PAREKH : 34 STATUS : ADM IN PAT#: [id number] AGE: 81 ADM/REG DATE : 12/20/16 MR#: [id number] REPORT SERV DATE: 12/22/16 DICTATED BY: DATE: REPORT STATUS : Draft TRANSCRIBED BY: MODL DATE: 12/22/16 CARDIOVASCULAR EXAMINATION: Regular rate and rhythm. No carotid bruits were otherwise auscultated. PULMONARY EXAMINATION: Clear to auscultation bilaterally. NEUROLOGICAL EXAMINATION: Generally, the patient is alert and nonverbal at the time of evaluation, not following commands. Cranial nerves 2 through 12, the patient was noted to have pupils equal, round, and reactive to light. Horizontal eye movement was noted to be intact with oculocephalic maneuver. The patient demonstrated blink to threat response at the time of evaluation. The patient also demonstrated facial asymmetry with the patient noted to have left facial weakness at the time of evaluation. Asymmetric grimace was also noted at time of evaluation. The patient demonstrated sensation in bilateral face with the patient demonstrated upper and lower extremity stiffness and muscle tone at the time of evaluation. The patient does demonstrate grimace and trace withdrawal to noxious stimulation in the left upper extremity as well as right upper extremity as well as grimace to noxious stimulation in bilateral lower extremities. Deep tendon reflex was 2+ throughout. Upgoing toe on bilateral plantar reflexes. Coordination and gait were unable to be evaluated due to patient's mental status and gait. LABORATORY DATA: Laboratory study demonstrated white blood cell count of 12.3, hemoglobin of 8.4, hematocrit of 26.8, platelet count of 379. Chemistry panel: Sodium 133, potassium 4.3, chloride of 102, bicarb 26, BUN of 17, creatinine 0.44, glucose of 157, calcium of 8.2, magnesium 1.7. The patient was noted to have serum troponin of less than 0.02. C-reactive protein of 98.9. No new neuro imaging was obtained at the time of evaluation. IMPRESSION: 1. Facial twitching concern for possible simple partial seizure versus complex partial seizure. No recurrent events on evaluation. The patient was noted to have stable mentation on evaluation compared to prior hospital admission. We will start the patient on Keppra 500 mg p.o. b.i.d., and re-evaluate patient's mental status. RECOMMENDATION: 1. Keppra 500 mg p.o. b.i.d. 2. Supportive care. 3. We will consider EEG. [facility]/EDIL Truong Yo MD / [id number] Consultation Report [address] [address] NAME: TERESITA PAREKH : 34 STATUS : ADM IN PAT#: [id number] AGE: 81 ADM/REG DATE : 12/20/16 MR#: [id number] REPORT SERV DATE: 12/22/16 DICTATED BY: DATE: REPORT STATUS : Draft TRANSCRIBED BY: VERNELL DATE: 12/22/16 CC: Jimmy Lorenz M.D.
--- NOTE | ~2016-12-20 | HP ---
History And Physical [address] [address] NAME: TERESITA PAREKH : 34 STATUS : ADM IN [facility]#: [id number] AGE: 81 ADM/REG DATE : 12/20/16 MR#: [id number] REPORT SERV DATE: 12/21/16 DICTATED BY: JASMEET BLAIR DATE: 12/20/16 REPORT STATUS : Draft TRANSCRIBED BY: MODL DATE: 12/20/16 DATE OF ADMISSION: 12/20/2016 CHIEF COMPLAINT: This is an 81-year-old white female, who was triaged in the emergency room today, 12/20/2016 at 1352 hours, sent from [facility] because of fever and possible pneumonia. Admission vital signs, blood pressure 128/67, temp 100.2, pulse 90, respirations 23, O2 saturation on 15 L. After evaluation in the emergency room by Dr. Ruiz, she was thought to have recurrent aspiration pneumonia. She was referred to the Hospitalist Service for admission. I spoke with Dr. Ruiz. The patient is seen on [address] [place] [address] at this time and had admitted. The history is obtained from the patient's , daughter, and son who were present as well as review of medical records on [employer] and [employer]. The patient can provide minimal information. She was last here on 11/05/2016 to 11/21/2016 with diagnoses; 1. Septic shock, briefly requiring pressor therapy from 11/05/2016 to 11/06/2016. 2. Aspiration pneumonia. 3. Recurrent aspiration pneumonia. 4. Oropharyngeal dysphagia, status post PEG tube placement, on enteral alimentation. 5. Acute on chronic hypoxemic respiratory failure. 6. Interstitial lung disease. 7. History of multiple cerebrovascular accidents in 2017, currently on aspirin and Plavix. 8. Catheter associated urinary tract infection with Proteus treated. 9. Type 2 diabetes insulin requiring, controlled on multi-injection therapy. 10.History of duodenal ulcer, diagnosed 09/2015 with gastrointestinal bleeding. 11.Hypothyroid, on Synthroid replacement. 12.Chronic pain syndrome. 13.C-spine degenerative disk disease, degenerative joint disease, post surgery. 14.History of paroxysmal supraventricular tachycardia. 15.Hyperlipoproteinemia. 16.History of lymphocytic colitis. 17.Hypertension. 18.Protein calorie malnutrition. 19.Debility due to cerebrovascular accidents, recurrent hospitalizations and aspirations. HISTORY OF PRESENT ILLNESS: She was discharged to [facility]. At [facility], the family did not think she made any physical therapy or speech therapy progress. There were concerns that this was related to opioid administration. Eventually, she was transferred this past Friday to [facility]. While at [facility], she developed some cough. She was also noted to have some left facial swelling. It sounds as if she was diagnosed with parotitis and that a CT scan was done. She was started on unknown antimicrobial therapy. Her facial swelling seemed to improve. At [facility], her cough persisted. She developed a temperature of greater than History And Physical [facility] [address] [place]. [address] NAME: TERESITA PAREKH : 34 STATUS : ADM IN [facility]#: [id number] AGE: 81 ADM/REG DATE : 12/20/16 MR#: [id number] REPORT SERV DATE: 12/21/16 DICTATED BY: JASMEET BLAIR DATE: 12/20/16 REPORT STATUS : Draft TRANSCRIBED BY: VERNELL DATE: 12/20/16 or equal to 102 and was referred here for admission. PAST MEDICAL HISTORY: See above. PAST SURGICAL HISTORY: 1. Cholecystectomy. 2. Hysterectomy. 3. Appendectomy. 4. Cervical spine surgery. 5. Knee surgery. 6. Cataract surgery. 7. Right total knee arthroplasty. 8. Tummy tuck. 9. Hemorrhoidectomy. ALLERGIES OR INTOLERANCE: Ticlopidine and sulfa. CURRENT MEDICATIONS: Tylenol 160 mg per 5 mL 20 mL every 6 hours as needed for pain, DuoNebs every 4 hours as needed, aspirin 81 mg daily, Lipitor 80 mg daily, Coreg 6.25 mg twice daily, Plavix 75 mg daily, Levemir 30 units twice daily, Humalog scale q.i.d., Levaquin 750 mg daily, levothyroxine 100 mcg daily, Prinivil 10 mg daily, Protonix 40 mg twice daily, potassium 30 mEq twice daily, probiotic cap twice daily, and topical treatments with miconazole cream, Risamine, and Carolann. Note all traditional p.o. medications given per PEG. Enteral feedings not sent, but at discharge here was on Glucerna 1.2 at 45 mL/h. SOCIAL HISTORY: No tobacco or alcohol use in the past. Four children. FAMILY HISTORY: Father with heart disease and diabetes. Mother with bone cancer. REVIEW OF SYSTEMS: Cannot be obtained from the patient. History as documented above from family. PHYSICAL EXAMINATION: VITAL SIGNS: Admission ER vital signs as noted above. Vital signs on [address]; sat 97 on 2 L of O2, blood pressure 134/59, temp 98, pulse 84, respirations 16. GENERAL: This is a stated age-appearing white female. She opens her eyes during exam and will respond with some yes or no's. She appears acutely and chronically ill. SKIN: Warm and dry. No rash, petechiae, or ecchymoses except ecchymoses over abdomen at the site of injection site. NODES: No palpable axillary, cervical, or inguinal. HEENT: Atraumatic with symmetric facies. Lids, sclerae, and conjunctivae negative. No xanthelasma, scleral icterus, or conjunctival petechiae or injection. Pupils are mydriatic, equal and react to light. Cannot test extraocular movements. Hearing intact. External ears negative. Right ear canal ceruminous, cannot see TM. Left ear canals partially History And Physical [address] [address] NAME: TERESITA PAREKH : 34 STATUS : ADM IN [facility]#: [id number] AGE: 81 ADM/REG DATE : 12/20/16 MR#: [id number] REPORT SERV DATE: 12/21/16 DICTATED BY: JASMEET BLAIR DATE: 12/20/16 REPORT STATUS : Draft TRANSCRIBED BY: VERNELL DATE: 12/20/16 ceruminous and TM can be seen and appears normal. Nose negative. Anterior nares clear. Lips, gums, hard and soft palates, posterior pharynx, and tongue remarkable for dry secretions. Salivary glands, left parotid is enlarged over right and perhaps slightly tender, both preauricular and at the angle of the mandible. NECK: Postsurgical, tender to palpation. Trachea midline. Nontender. No palpable mass or goiter. No visible JVD. LUNGS: Normal respiratory effort on O2. Bibasilar harsh rales. Anterior clear. HEART: Regular rate and rhythm. No murmur, gallop, rub, or click. Pulses 2+ radial, carotid, femoral, and dorsalis pedis. ABDOMEN: PEG tube in place. Bowel sounds present. Soft to palpation. No evident tenderness to palpation. Cannot feel liver, spleen, kidneys, or aortic pulsation. EXTREMITIES: Upper extremities, puffy, without pitting. No active synovitis or clubbing. Lower extremities, previous right knee replacement, puffy without pitting. No active synovitis or clubbing. NEUROLOGIC: Mental status cannot be assessed. Cranial nerves, see HEENT above. Deep tendon reflexes 3+ brachioradialis. Negative Meg, absent right knee jerk, 2+ left knee jerk, absent ankle jerk, downgoing toes. 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 PSYCHIATRIC: Calm and appropriate. DATA: Arterial blood gases on 100% O2; pH 7.53, pCO2 of 31, pO2 of 267. Procalcitonin 0.11. Sodium 137, potassium 4.4, chloride 103, CO2 of 28, BUN 24, creatinine 0.57, glucose 133, urine calcium 8.2. Total protein 5.6, albumin 1.7, globulin 3.9, total bilirubin 0.4, alkaline phosphatase 23, ALT 50, AST 42. Troponin 0.02. BNP 129.4. Lactate 1.8. CBC; white count 12.7, hemoglobin 8.2, MCV 99.6, platelets 221,000. PTT 33.5, PT 16.2. No urinalysis at this time. Chest x-ray: Persistent recurrent bilateral lower lobe pneumonic appearing infiltrates, reviewed. EKG: Delayed anterior R-wave progression, sinus rhythm, no acute changes. ASSESSMENT: This is an 81-year-old white female with: 1. Recurrent aspiration pneumonia. 2. Left parotitis. 3. Oropharyngeal dysphagia, status post PEG tube placement, on enteral alimentation. 4. Acute on chronic hypoxemic respiratory failure. 5. Interstitial lung disease. 6. History of multiple cerebrovascular accidents this year, currently on aspirin and Plavix. 7. History of catheter associated urinary tract infection, currently without Tate catheter. 8. Type 2 diabetes, insulin requiring. 9. History of duodenal ulcer, diagnosed 09/2015, with GI bleeding. 10.Hypothyroid, on Synthroid replacement. 11.Chronic pain. 12.C-spine degenerative disk and joint disease with previous surgery. History And Physical [place] [id number] [facility] [place] [place]. [address] NAME: TERESITA PAREKH : 34 STATUS : ADM IN [facility]#: [id number] AGE: 81 ADM/REG DATE : 12/20/16 MR#: [id number] REPORT SERV DATE: 12/21/16 DICTATED BY: JASMEET BLAIR DATE: 12/20/16 REPORT STATUS : Draft TRANSCRIBED BY: VERNELL DATE: 12/20/16 13.History of paroxysmal supraventricular tachycardia. 14.Hyperlipoproteinemia, on statin therapy. 15.History of lymphocytic colitis. 16.Hypertension. 17.Debility due to cerebrovascular accidents, recurrent hospitalizations and aspiration. 18.Protein calorie malnutrition. PLAN: In the emergency room, blood cultures were obtained. She was started on cefepime and vancomycin. We will continue the same. Continue transfer medications, holding with lisinopril until certain she will not have periods of hypotension, reduce insulin doses till enteral alimentation started and then adjust to hypo or hyperglycemia. Give some crystalloid volume resuscitation. Followup labs on current therapy. Get PT and OT eval and engage this week and ask Speech Therapy to re-evaluate on Friday. Give aggressive mouth care and moisturization, Yankauer suctioning as needed. To limit aspiration if possible. Strict n.p.o. Head of bed elevated greater than or equal to 30 degrees. Frequent turning and skin care assessments. No Tate catheter at this time. Further diagnostic and therapeutic considerations pending above. DD/MODL Jasmeet Blair M.D. / [id number] CC: Jimmy Lorenz M.D.
--- NOTE | ~2016-12-20 | EEG ---
Electroencephalogram [place] [id number] [place]. [address] NAME: TERESITA PAREKH : 34 STATUS : ADM IN PAT#: [id number] AGE: 81 ADM/REG DATE : 12/20/16 MR#: [id number] REPORT SERV DATE: 12/25/16 DICTATED BY: FELIX LE DATE: 12/25/16 REPORT STATUS : Draft TRANSCRIBED BY: MODL DATE: 12/25/16 ELECTROENCEPHALOGRAPHY REPORT REFERRING PHYSICIAN: Dr. Blair. ORDERING PHYSICIAN: Abi Dave, nurse practitioner. INTERPRETING PHYSICIAN: Felix Le MD-Neurology. REASON FOR EEG: History of multiple strokes, altered mental status, rule out seizures. 23 surface electrodes, 10-20 international placement was used. The patient was noted to be awake, drowsy, and confused throughout the study. The background activity consisted of moderate to low voltage 7 to 8 cycles per second located in the posterior head regions. This activity did not appear to attenuate very well with the eye opening maneuvers. The eye blinking artifact appeared symmetrical. No significant paroxysmal or epileptiform activity was seen during this study. No significant asymmetry of cerebral activity was noted. The patient's corrosion control engineer showed pacemaker artifact, heart rate of approximately 76 beats per minute. Photic stimulation did not produce a normal driving response. IMPRESSION: ABNORMAL EEG CHARACTERIZED BY PRESENCE OF DIFFUSE SLOWING OF CEREBRAL ACTIVITY. NO PAROXYSMAL OR EPILEPTIFORM ACTIVITY WAS NOTED DURING THIS STUDY. THIS EEG REPRESENTS PRESENCE OF DIFFUSE CEREBRAL DYSFUNCTION. A POSTICTAL STATE COULD NOT BE RULED OUT. CLINICAL CORRELATION IS RECOMMENDED. ROSANGELA/VERNELL Felix Le MD / [id number] CC: MD Ambrosio Palomino M.D.
--- NOTE | ~2016-12-20 | IDS ---
Interim Discharge Summary [facility] [address] [place]. [address] NAME: TERESITA PAREKH : 34 STATUS : ADM IN [facility]#: [id number] AGE: 81 ADM/REG DATE : 12/20/16 MR#: [id number] REPORT SERV DATE: 12/30/16 DICTATED BY: BRIAN HARVEY DATE: 12/30/16 REPORT STATUS : Draft TRANSCRIBED BY: MODL DATE: 12/30/16 ADMISSION DATE: 12/20/2016 DISCHARGE DATE: WORKING DIAGNOSES: 1. Recurrent aspiration pneumonia. 2. Parotitis. 3. Oropharyngeal dysphagia, on tube feeds per PEG. 4. Multiple cerebrovascular accidents in the past with chronic debility. 5. Suspected focal seizure initially which was ruled out with a negative EEG. 6. Acute on chronic encephalopathy during this hospital stay which is thought to be secondary to cefepime-induced encephalopathy. 7. Hypothyroidism. 8. Diabetes type 2. 9. Hypertension. CONSULTANTS: Neurology. PROCEDURES: None. HOSPITAL COURSE: This is an 81-year-old lady who is well known to our service who was initially admitted to the hospital with recurrent aspiration pneumonia as well as parotitis. For details, please refer to excellent H and P dictated by Dr. Jasper Blair. In summary, the patient was admitted and was treated with broad-spectrum antibiotics with apparent noticeable improvement of her overall conditions. However, throughout the early days of the hospital stay, the patient started developing acute on chronic encephalopathy in the form of lethargy. The patient had some twitching of her lips and possible focal seizure was suspected as part of the reason for encephalopathy. Neurology was consulted and the patient was started on Keppra. EEG was obtained which was eventually negative. Neurology felt that the patient's encephalopathy was likely related to cefepime, and the antibiotic was switched to Zosyn instead of cefepime. The patient has had vancomycin and Zosyn in the past and she tolerated it well. The patient was also discontinued off the Keppra and the patient did well. The patient's overall mentation seems to improve, however, it should be noted that the patient at baseline is quite debilitated and minimally verbal due to the multiple strokes that she has suffered. The patient has been on vancomycin and Zosyn for eight days before Pharmacy recommended discontinuing of the antibiotics as there was no further evidence of sepsis. Indeed, the patient remained afebrile with normal white blood cell count and negative procalcitonin level and negative cultures and thus the patient's antibiotics were stopped on Friday. On Friday, the patient had an episode of possible aspiration and she started making more upper airway secretions. Chest x-ray was checked again which was benign. The patient's lab work was repeated, and on Friday, the patient had normal white blood cell count, but on Friday, her white blood cell count actually doubled up to 13,000, but only to come back to normal ranges this morning. The patient was not restarted on antibiotic therapy as the patient again remained afebrile and hemodynamically stable. The patient's oxygen requirement did go up from 2 L up to 4 L, but she is now down to 3 L which is right around her baseline. The patient and family have been Interim Discharge Summary [address] [place]. [address] NAME: TERESITA PAREKH : 34 STATUS : ADM IN [facility]#: [id number] AGE: 81 ADM/REG DATE : 12/20/16 MR#: [id number] REPORT SERV DATE: 12/30/16 DICTATED BY: BRIAN HARVEY DATE: 12/30/16 REPORT STATUS : Draft TRANSCRIBED BY: VERNELL DATE: 12/30/16 extensively counseled throughout this whole week and I have spent no less than 30 minutes on a daily basis regarding the patient's prognosis as well as the patient's need for rehab and that the patient will benefit most from rehab at this point in time. However, the patient's family just did not feel ready, especially with the episode of possible aspiration over the weekend. The patient's family do agree that the patient will need to be transferred to a rehab in the near future and her bed is reserved at [facility]. Overall, the patient has been doing well the last few days of the hospital stay, and I anticipate that the patient and family will be ready for transfer to [facility] in the near future. SHANTI/VERNELL Brian Harvey MD / [id number] CC: MD Ambrosio Palomino M.D.
--- NOTE | ~2016-12-20 | DS ---
Discharge Summary [facility] [address] [facility] [place]. [address] NAME: TERESITA PAREKH : 34 STATUS : DIS IN PAT#: [id number] AGE: 81 ADM/REG DATE : 12/20/16 MR#: [id number] REPORT SERV DATE: 01/02/17 DICTATED BY: JASMEET ALANIZ DATE: 01/01/17 REPORT STATUS : Draft TRANSCRIBED BY: MODL DATE: 01/01/17 ADMISSION DATE: 12/20/2016 DISCHARGE DATE: 01/01/2017 DISCHARGE DIAGNOSES: 1. Recurrent aspiration pneumonia. 2. Left parotitis. 3. Seizure mimic induced by cefepime, resolved off same. 4. Oropharyngeal dysphagia, status post PEG tube placement, on enteral alimentation. 5. Acute on chronic hypoxemic respiratory failure. 6. Interstitial lung disease. 7. History of multiple cerebrovascular accidents this year, currently on aspirin and Plavix. 8. History of catheter associated urinary tract infection, currently without Tate catheter at this time. 9. Type 2 diabetes, insulin requiring. 10.History of duodenal ulcer, diagnosed 09/2015 with GI bleeding. Negative stool Hemoccult this admission. 11.Hypothyroid on Synthroid replacement, elevated TSH this admission and Synthroid dose increased, followup TSH in 3 weeks needed. 12.Chronic pain. 13.C-spine degenerative disk and joint disease with previous surgery. 14.History of paroxysmal supraventricular tachycardia. 15.Hyperlipoproteinemia on statin therapy. 16.History of lymphocytic colitis. 17.Hypertension. 18.Debility due to cerebrovascular accidents, recurrent hospitalizations and aspiration. 19.Protein-calorie malnutrition. Tube feeds increased to goal this admission post nutrition consultation. OPERATIONS AND PROCEDURES: None. PRESENT ILLNESS: This is an 81-year-old white female who was triaged in the emergency room on 12/20/2016 at 1352 hours sent from [facility] because of fever and possible pneumonia. Admission vital signs: Blood pressure 128/67, temp 100.2, pulse 90, respirations 23, O2 saturation was 100 on 15 L. After evaluation in the emergency room by Dr. Ruiz, she was thought to have recurrent aspiration pneumonia. She was referred to the Hospitalist Service for admission. She was admitted to [address] [place] [address] where she was seen and admitted by the undersigned as outlined on admission history and physical examination. ADDITIONAL HISTORY: As outlined on admission history and physical examination. PHYSICAL EXAMINATION: As outlined on admission history and physical examination. Discharge Summary [place] [id number] [place]. [address] NAME: TERESITA PAREKH : 34 STATUS : DIS IN PAT#: [id number] AGE: 81 ADM/REG DATE : 12/20/16 MR#: [id number] REPORT SERV DATE: 01/02/17 DICTATED BY: JASMEET ALANIZ DATE: 01/01/17 REPORT STATUS : Draft TRANSCRIBED BY: VERNELL DATE: 01/01/17 ADMISSION LABORATORY: As outlined on admission history and physical examination. HOSPITAL COURSE: She was admitted to [address] [place] [address] with: 1. Recurrent aspiration pneumonia. 2. Left parotitis. 3. The above occurring in the setting of the above-mentioned comorbidities. In the Emergency Room, blood cultures were obtained. She was started on cefepime and vancomycin. Her transfer medications from [facility] were continued except for lisinopril pending further blood pressure monitoring. In addition, her insulin doses were adjusted downward pending followup blood sugar monitoring. She was given some crystalloid volume resuscitation. Requests were made for PT, OT, and speech therapy evaluation. Oral care was provided. Aspiration precautions were initiated. She was seen by the undersigned on admission and on 12/21/2016, 12/22/2016, and 12/23/2016. She was seen from 12/24/2016 through 12/30/[address] Gómez. Her hospital course during that interval is as outlined on interim summary dictated by Dr. Gómez. Her care was assumed by the undersigned again on 12/31/2016 and 01/01/2017. On 12/31/2016, she was off antimicrobial therapy. Her O2 requirements were at baseline. She had no increased cough. She was tolerating her tube feedings at goal rate. Her procalcitonin level was 0.05. A C-reactive protein level had fallen from 98.9 to 45.7. Her white blood cell count was 6.2 and a chest x-ray that had been done on 12/28/2016 showed coarse interstitial markings, subsegmental atelectasis left base, and no change compared to previous study. She had some loose stool. Stool was checked for C. diff and was negative. I subsequently met with the patient's and daughter at bedside. We discussed her new degree of fragile stability and [facility] Today, I met her at bedside. Ms. Parekh seemed to be back to her baseline state. She had no parotid swelling. She has basilar rales which were unchanged. Her O2 sat was 97% on 2 L. At this point in her hospitalization, it was felt she had achieved a level of improvement and stability where she could be safely transitioned back to [facility]. All parties are aware of her fragility and her high risk for readmission with aspiration. Of note, relative to this is that she was seen by speech pathology twice during this hospitalization on 12/22/2016 and 12/30/2016. She has continued overt signs and symptoms of aspiration. Strict n.p.o. status with aspiration precautions and enteral alimentation is recommended. DISCHARGE MEDICATIONS: Her discharge medications will be aspirin 81 mg daily, Lipitor 80 mg daily, Coreg 6.25 mg twice daily, Plavix 75 mg daily, Lovenox 40 mg subcutaneous daily, insulin NovoLog correction scale 2 every 6 hours, Synthroid 125 mcg daily, lisinopril 10 mg Discharge Summary [address] [address] NAME: TERESITA PAREKH : 34 STATUS : DIS IN PAT#: [id number] AGE: 81 ADM/REG DATE : 12/20/16 MR#: [id number] REPORT SERV DATE: 01/02/17 DICTATED BY: JASMEET ALANIZ DATE: 01/01/17 REPORT STATUS : Draft TRANSCRIBED BY: VERNELL DATE: 01/01/17 daily, Protonix 40 mg twice daily, potassium 30 mEq twice daily, Florastor one capsule twice daily, DuoNeb every 4 hours not p.r.n., Levemir 15 units subcutaneous q.12 hours, Tylenol suppository every 4 hours as needed, glucagon for hypoglycemia 1 mg IM, Zofran 4 mg every 4 hours as needed for nausea and vomiting. O2 by nasal cannula to keep sat greater than or equal to 92. Glucerna 1.2, 60 mL/h by pump with water flushes 200 mL every 3 hours. Head of bed always greater than 30 degrees. Aggressive mouth care. SCDs. BMP, CBC 01/03/2017 call to provider. Discharge time greater than 30 minutes. DICTATED BY: Jasmeet Alaniz M.D. DD/VERNELL Jasmeet Alaniz M.D. / [id number] CC: Jimmy Lorenz M.D. [facility]
[~2016-12-20 13:52] MED LIST changes: +DUONEB INH; +HUMULIN R1 ML SC; +KCL20UDL PEG; +LEVAQUIN750 MG PEG; +LEVEMFLXPN SC; +LEVOTHYROXIN100 MCG PO; +LIPITOR80 MG PEG; +LOP25 PEG; +MAGOX4 PEG; +NYSTATIN-TRIAMC15 GM TOP; +PRILOSEC40 MG PEG
[2016-12-20] MEDS ORDERED: TYLENOL 16160 MG/51 PEG (14:51)
[2016-12-20] MEDS ORDERED: PROBIOTIC CAP PEG (14:52)
[2016-12-20] MEDS ORDERED: PROTONI1 PEG (14:56)
[2016-12-20] MEDS ORDERED: PLAVIX PEG (15:00)
[2016-12-20] MEDS ORDERED: BAZA CREAM TOP (15:01)
[2016-12-20] MEDS ORDERED: [UNRECOGNIZED DRUG - OTHER] TOP (15:01)
[2016-12-20] MEDS ORDERED: PRIN10 PEG (15:02)
[2016-12-20] MEDS ORDERED: COREG6 PEG (15:02)
[2016-12-20] MEDS ORDERED: MICONAZOLE CREA30 GM TOP (15:10)
[2016-12-20 15:17] LABS: ALLENS TEST Pos; BE (BASE EXCESS) 2.9 MEQ/L (0 +/- 2.5); CARBOXYHEMOGLOBIN 1.1 % (0-3); HCO3 (ACTUAL BICARBONATE) 25.4 MEQ/L (23-27); HEMOBLOGIN CONTENT 8.4 G/DL (12-16); INSTRUMENT SERIAL # 8087; METHEMOGLOBIN 0.4 % (0-3); O2 CONTENT 12.3 VOL% (18-24); OPERATOR ID 14335; PCO2 (CO2 TENSION) 31 MMHG (35-45); PO2 (O2 TENSION) 267 MMHG (79-93); SAMPLE Arterial; pH 7.53 (7.37-7.43)
[2016-12-20 15:23] LABS: BASOPHILS 0.2 %; BASOPHILS ABSOLUTE 0.02 10/3/uL (0.0-0.16); EOSINOPHILS 0.6 %; EOSINOPHILS ABSOLUTE 0.08 10/3/uL (0.0-0.53); HEMOGLOBIN 8.2 g/dL (12.0-16.0); IMMATURE GRANULOCYTES 0.6 %; IMMATURE GRANULOCYTES ABSOLUTE 0.08 10/3/uL (0.0-0.11); LYMPHOCYTES 10.5 %; LYMPHOCYTES ABSOLUTE 1.34 10/3/uL (0.67-4.30); MEAN CORPUS HGB CONC 30.8 g/dL (32.0-36.0); MEAN CORPUSCULAR HEMOGLOB 30.7 pg (26.0-34.0); MEAN CORPUSCULAR VOLUME 99.6 fL (80-100); MEAN PLATELET VOLUME 10.1 fL (9.2-13.0); MONOCYTES 10.1 %; MONOCYTES ABSOLUTE 1.29 10/3/uL (0.21-1.20); NEUTROPHILS ABSOLUTE 9.93 10/3/uL (2.02-8.40); PLATELET COUNT 321 10/3/uL (150-400); RED CELL COUNT 2.67 10/6/uL (4.0-5.6)
[2016-12-20 15:25] LABS: ER CBC TAT 0 Hrs 15 Mins; HEMATOCRIT 26.6 % (36.0-48.0); MANUAL DIFF NO %; WHITE BLOOD CELLS 12.7 10/3/uL (4.5-10.5)
[2016-12-20 15:31] LABS: INTERNATIONAL NORMAL RATI 1.3 UNITS (-); PARTIAL THROMBO TIME 33.5 SEC (22.5-37.2); PROTIME (NOT ORD) 16.2 SEC (12.0-14.5)
[2016-12-20 15:37] LABS: LACTATE 1.8 MMOL/L (0.3-2.4)
[2016-12-20 15:46] LABS: A/G RATIO 0.4 (0.7-1.9); ALBUMIN 1.7 G/DL (3.5-5.0); ALKALINE PHOSPHATASE 23 U/L (45-117); CALCIUM, SERUM 8.2 MG/DL (8.5-10.4); CHLORIDE, SERUM 103 MMOL/L (96-112); CO2 (CARBON DIOXIDE) 28 MMOL/L (24-34); CREATININE 0.57 MG/DL (0.55-1.02); GFR AFRICAN AMERICAN 100 ML/MIN (>=60); GFR NON AFRICAN AMERICAN 86 ML/MIN (>=60); GLOBULIN 3.9 G/DL (2.5-4.1); GLUCOSE, SERUM 133 MG/DL (60-99); POTASSIUM, SERUM 4.4 MMOL/L (3.5-5.3); SGOT(AST) 42 U/L (5-40); SGPT(ALT) 50 U/L (5-65); SODIUM, SERUM 137 MMOL/L (135-148); TOTAL BILIRUBIN 0.4 MG/DL (0-1.2); TOTAL PROTEIN 5.6 G/DL (6.0-8.5); TROPONIN I 0.02 NG/ML (<0.05)
[2016-12-20 15:47] LABS: BUN (BLOOD UREA NITROGEN) 24 MG/DL (6-23)
[2016-12-20 16:11] LABS: PROCALCITONIN 0.11 ng/mL (<0.5)
[2016-12-20 21:28] LABS: RETICULOCYTE COUNT 6.8 % (0.5-2.9)
[2016-12-20 21:29] LABS: RETICULOCYTE COUNT ABSOLUTE 178.1 10/3/uL (20.2-119.8)
[2016-12-21 04:29] LABS: ASCORBIC ACID (UR NOT ORDER) NEG (NEG); BILIRUBIN, URINE NEGATIVE (NEG); KETONE, URINE NEGATIVE (NEG); LEUKOCYTE ESTERASE(NOT OR NEG (NEG); WBC (NOT ORDERED) (RFLEX) 2 (0-5)
[2016-12-21 07:30] LABS: BASOPHILS 0.2 %; BASOPHILS ABSOLUTE 0.02 10/3/uL (0.0-0.16); EOSINOPHILS 2.2 %; EOSINOPHILS ABSOLUTE 0.22 10/3/uL (0.0-0.53); HEMATOCRIT 25.2 % (36.0-48.0); HEMOGLOBIN 7.9 g/dL (12.0-16.0); IMMATURE GRANULOCYTES 0.7 %; IMMATURE GRANULOCYTES ABSOLUTE 0.07 10/3/uL (0.0-0.11); LYMPHOCYTES ABSOLUTE 1.22 10/3/uL (0.67-4.30); MEAN CORPUS HGB CONC 31.3 g/dL (32.0-36.0); MEAN CORPUSCULAR HEMOGLOB 31.1 pg (26.0-34.0); MEAN CORPUSCULAR VOLUME 99.2 fL (80-100); MONOCYTES 10.1 %; MONOCYTES ABSOLUTE 1.03 10/3/uL (0.21-1.20); NEUTROPHILS 74.8 %; NEUTROPHILS ABSOLUTE 7.59 10/3/uL (2.02-8.40); PLATELET COUNT 315 10/3/uL (150-400); RBC DISTRIBUTION WIDTH 19.1 % (12.0-16.0); RED CELL COUNT 2.54 10/6/uL (4.0-5.6); WHITE BLOOD CELLS 10.2 10/3/uL (4.5-10.5)
[2016-12-21 07:32] LABS: MANUAL DIFF NO %
[2016-12-21 07:47] LABS: CALCIUM, SERUM 8.2 MG/DL (8.5-10.4); CHLORIDE, SERUM 103 MMOL/L (96-112); CO2 (CARBON DIOXIDE) 27 MMOL/L (24-34); CREATININE 0.49 MG/DL (0.55-1.02); FERRITIN 170 NG/ML (8-252); GFR AFRICAN AMERICAN 105 ML/MIN (>=60); GFR NON AFRICAN AMERICAN 91 ML/MIN (>=60); GLUCOSE, SERUM 127 MG/DL (60-99); POTASSIUM, SERUM 4.1 MMOL/L (3.5-5.3); SODIUM, SERUM 135 MMOL/L (135-148)
[2016-12-21 07:48] LABS: BUN (BLOOD UREA NITROGEN) 19 MG/DL (6-23); C-REACTIVE PROTEIN 86.3 MG/L (<8.0)
[2016-12-21 09:33] LABS: PROCALCITONIN 0.07 ng/mL (<0.5)
[2016-12-22 06:38] LABS: BASOPHILS 0.2 %; BASOPHILS ABSOLUTE 0.02 10/3/uL (0.0-0.16); EOSINOPHILS 1.5 %; EOSINOPHILS ABSOLUTE 0.18 10/3/uL (0.0-0.53); HEMATOCRIT 26.8 % (36.0-48.0); HEMOGLOBIN 8.4 g/dL (12.0-16.0); IMMATURE GRANULOCYTES 0.5 %; IMMATURE GRANULOCYTES ABSOLUTE 0.06 10/3/uL (0.0-0.11); LYMPHOCYTES ABSOLUTE 1.24 10/3/uL (0.67-4.30); MEAN CORPUS HGB CONC 31.3 g/dL (32.0-36.0); MEAN CORPUSCULAR HEMOGLOB 30.8 pg (26.0-34.0); MEAN CORPUSCULAR VOLUME 98.2 fL (80-100); MEAN PLATELET VOLUME 9.7 fL (9.2-13.0); MONOCYTES 11.2 %; MONOCYTES ABSOLUTE 1.38 10/3/uL (0.21-1.20); NEUTROPHILS 76.6 %; NEUTROPHILS ABSOLUTE 9.46 10/3/uL (2.02-8.40); PLATELET COUNT 379 10/3/uL (150-400); RBC DISTRIBUTION WIDTH 19.2 % (12.0-16.0); RED CELL COUNT 2.73 10/6/uL (4.0-5.6); WHITE BLOOD CELLS 12.3 10/3/uL (4.5-10.5)
[2016-12-22 06:43] LABS: MANUAL DIFF NO %
[2016-12-22 06:48] LABS: BUN (BLOOD UREA NITROGEN) 17 MG/DL (6-23); CALCIUM, SERUM 8.2 MG/DL (8.5-10.4); CHLORIDE, SERUM 102 MMOL/L (96-112); CO2 (CARBON DIOXIDE) 26 MMOL/L (24-34); CREATININE 0.44 MG/DL (0.55-1.02); GFR AFRICAN AMERICAN 109 ML/MIN (>=60); GFR NON AFRICAN AMERICAN 94 ML/MIN (>=60); POTASSIUM, SERUM 4.3 MMOL/L (3.5-5.3); SODIUM, SERUM 133 MMOL/L (135-148)
[2016-12-22 06:50] LABS: GLUCOSE, SERUM 157 MG/DL (60-99)
[2016-12-22 07:21] LABS: PHOSPHORUS, SERUM 2.7 MG/DL (2.5-4.5)
[2016-12-22 09:29] LABS: C-REACTIVE PROTEIN 98.9 MG/L (<8.0); TROPONIN I <0.02 NG/ML (<0.05)
[2016-12-23 04:36] LABS: HEMATOCRIT 24.2 % (36.0-48.0); MEAN CORPUSCULAR VOLUME 96.8 fL (80-100); MEAN PLATELET VOLUME 9.8 fL (9.2-13.0); NUCLEATED RED BLOOD CELLS 10.7 /100WBC (0-0); PLATELET COUNT 318 10/3/uL (150-400); WHITE BLOOD CELLS 12.1 10/3/uL (4.5-10.5)
[2016-12-23 04:38] LABS: MANUAL DIFF YES %; MEAN CORPUS HGB CONC 33.1 g/dL (32.0-36.0)
[2016-12-23 04:44] LABS: BUN (BLOOD UREA NITROGEN) 16 MG/DL (6-23); CALCIUM, SERUM 7.9 MG/DL (8.5-10.4); CHLORIDE, SERUM 102 MMOL/L (96-112); CO2 (CARBON DIOXIDE) 26 MMOL/L (24-34); CREATININE 0.38 MG/DL (0.55-1.02); GFR AFRICAN AMERICAN 114 ML/MIN (>=60); GFR NON AFRICAN AMERICAN 99 ML/MIN (>=60); GLUCOSE, SERUM 164 MG/DL (60-99); POTASSIUM, SERUM 4.4 MMOL/L (3.5-5.3); SODIUM, SERUM 135 MMOL/L (135-148)
[2016-12-23 06:22] LABS: BAND NEUTROPHILS 1 %; EOSINOPHILS 1 %; EOSINOPHILS ABSOLUTE (CALC) 0.12 10/3/uL (0.0-0.53); LYMPHOCYTES 5 %; LYMPHOCYTES ABSOLUTE (CALC) 0.61 10/3/uL (0.67-4.30); MONOCYTES 18 %; MONOCYTES ABSOLUTE (CALC) 2.18 10/3/uL (0.21-1.20); PLATELET ESTIMATE ADQ (ADEQUATE); SEGMENTED NEUTROPHIL (0) 75 %; TOTAL NUCLEATED CELLS 100
[2016-12-23 06:23] LABS: ANISOCYTOSIS 1+ (5-10/OIF) (0-5/OIF); TEARDROP SHAPED RBCS FEW (3-10/OIF); TOXIC GRANULATION SLT
[2016-12-23 06:24] LABS: SCHISTOCYTES OCC (0-2/OIF)
[2016-12-24 05:32] LABS: BASOPHILS 0.2 %; BASOPHILS ABSOLUTE 0.02 10/3/uL (0.0-0.16); EOSINOPHILS ABSOLUTE 0.25 10/3/uL (0.0-0.53); HEMATOCRIT 22.5 % (36.0-48.0); IMMATURE GRANULOCYTES 0.2 %; IMMATURE GRANULOCYTES ABSOLUTE 0.02 10/3/uL (0.0-0.11); LYMPHOCYTES 11.8 %; MEAN CORPUSCULAR HEMOGLOB 30.8 pg (26.0-34.0); MEAN CORPUSCULAR VOLUME 99.1 fL (80-100); MEAN PLATELET VOLUME 9.5 fL (9.2-13.0); MONOCYTES 8.7 %; MONOCYTES ABSOLUTE 0.74 10/3/uL (0.21-1.20); NEUTROPHILS 76.1 %; NEUTROPHILS ABSOLUTE 6.43 10/3/uL (2.02-8.40); PLATELET COUNT 315 10/3/uL (150-400); RBC DISTRIBUTION WIDTH 19.2 % (12.0-16.0); RED CELL COUNT 2.27 10/6/uL (4.0-5.6); WHITE BLOOD CELLS 8.5 10/3/uL (4.5-10.5)
[2016-12-24 05:33] LABS: MANUAL DIFF NO %; MEAN CORPUS HGB CONC 31.1 g/dL (32.0-36.0)
[2016-12-24 05:39] LABS: BUN (BLOOD UREA NITROGEN) 14 MG/DL (6-23); C-REACTIVE PROTEIN 97.3 MG/L (<8.0); CALCIUM, SERUM 8.1 MG/DL (8.5-10.4); CHLORIDE, SERUM 104 MMOL/L (96-112); CO2 (CARBON DIOXIDE) 27 MMOL/L (24-34); CREATININE 0.42 MG/DL (0.55-1.02); GFR AFRICAN AMERICAN 111 ML/MIN (>=60); GFR NON AFRICAN AMERICAN 95 ML/MIN (>=60); GLUCOSE, SERUM 149 MG/DL (60-99); POTASSIUM, SERUM 4.2 MMOL/L (3.5-5.3); SODIUM, SERUM 133 MMOL/L (135-148)
[2016-12-25 05:25] LABS: BASOPHILS 0.4 %; BASOPHILS ABSOLUTE 0.03 10/3/uL (0.0-0.16); EOSINOPHILS 2.9 %; HEMATOCRIT 23.2 % (36.0-48.0); HEMOGLOBIN 7.1 g/dL (12.0-16.0); IMMATURE GRANULOCYTES 0.4 %; IMMATURE GRANULOCYTES ABSOLUTE 0.03 10/3/uL (0.0-0.11); LYMPHOCYTES 16.3 %; LYMPHOCYTES ABSOLUTE 1.12 10/3/uL (0.67-4.30); MANUAL DIFF NO %; MEAN CORPUS HGB CONC 30.6 g/dL (32.0-36.0); MEAN CORPUSCULAR HEMOGLOB 30.5 pg (26.0-34.0); MEAN CORPUSCULAR VOLUME 99.6 fL (80-100); MEAN PLATELET VOLUME 9.4 fL (9.2-13.0); MONOCYTES 6.9 %; MONOCYTES ABSOLUTE 0.47 10/3/uL (0.21-1.20); NEUTROPHILS 73.1 %; NEUTROPHILS ABSOLUTE 5.01 10/3/uL (2.02-8.40); PLATELET COUNT 358 10/3/uL (150-400); RED CELL COUNT 2.33 10/6/uL (4.0-5.6); WHITE BLOOD CELLS 6.9 10/3/uL (4.5-10.5)
[2016-12-25 05:33] LABS: BUN (BLOOD UREA NITROGEN) 15 MG/DL (6-23); CHLORIDE, SERUM 102 MMOL/L (96-112); CO2 (CARBON DIOXIDE) 28 MMOL/L (24-34); CREATININE 0.48 MG/DL (0.55-1.02); GFR AFRICAN AMERICAN 106 ML/MIN (>=60); GFR NON AFRICAN AMERICAN 91 ML/MIN (>=60); GLUCOSE, SERUM 150 MG/DL (60-99); POTASSIUM, SERUM 4.1 MMOL/L (3.5-5.3); SODIUM, SERUM 134 MMOL/L (135-148)
[2016-12-25 07:58] LABS: PHOSPHORUS, SERUM 2.8 MG/DL (2.5-4.5)
[2016-12-26 10:47] LABS: BASOPHILS 0.7 %; BASOPHILS ABSOLUTE 0.04 10/3/uL (0.0-0.16); EOSINOPHILS 3.8 %; EOSINOPHILS ABSOLUTE 0.23 10/3/uL (0.0-0.53); HEMATOCRIT 24.7 % (36.0-48.0); HEMOGLOBIN 7.6 g/dL (12.0-16.0); IMMATURE GRANULOCYTES 0.2 %; IMMATURE GRANULOCYTES ABSOLUTE 0.01 10/3/uL (0.0-0.11); LYMPHOCYTES 17.1 %; LYMPHOCYTES ABSOLUTE 1.04 10/3/uL (0.67-4.30); MEAN CORPUS HGB CONC 30.8 g/dL (32.0-36.0); MEAN CORPUSCULAR HEMOGLOB 30.5 pg (26.0-34.0); MEAN CORPUSCULAR VOLUME 99.2 fL (80-100); MONOCYTES 8.7 %; MONOCYTES ABSOLUTE 0.53 10/3/uL (0.21-1.20); NEUTROPHILS 69.5 %; NEUTROPHILS ABSOLUTE 4.24 10/3/uL (2.02-8.40); PLATELET COUNT 414 10/3/uL (150-400); RBC DISTRIBUTION WIDTH 18.9 % (12.0-16.0); RED CELL COUNT 2.49 10/6/uL (4.0-5.6); WHITE BLOOD CELLS 6.1 10/3/uL (4.5-10.5)
[2016-12-26 10:48] LABS: MANUAL DIFF NO %
[2016-12-26 11:01] LABS: BUN (BLOOD UREA NITROGEN) 13 MG/DL (6-23); CALCIUM, SERUM 8.2 MG/DL (8.5-10.4); CHLORIDE, SERUM 103 MMOL/L (96-112); CO2 (CARBON DIOXIDE) 28 MMOL/L (24-34); CREATININE 0.42 MG/DL (0.55-1.02); GFR AFRICAN AMERICAN 111 ML/MIN (>=60); GFR NON AFRICAN AMERICAN 95 ML/MIN (>=60); GLUCOSE, SERUM 153 MG/DL (60-99); SODIUM, SERUM 138 MMOL/L (135-148); VANCOMYCIN TROUGH 21.5 MCG/ML (10.0-20.0)
[2016-12-26 11:03] LABS: POTASSIUM, SERUM 5.4 MMOL/L (3.5-5.3)
[2016-12-27 04:52] LABS: BASOPHILS 0.7 %; BASOPHILS ABSOLUTE 0.05 10/3/uL (0.0-0.16); EOSINOPHILS 3.3 %; EOSINOPHILS ABSOLUTE 0.24 10/3/uL (0.0-0.53); HEMATOCRIT 26.1 % (36.0-48.0); HEMOGLOBIN 8.2 g/dL (12.0-16.0); IMMATURE GRANULOCYTES 0.3 %; IMMATURE GRANULOCYTES ABSOLUTE 0.02 10/3/uL (0.0-0.11); LYMPHOCYTES 14.9 %; LYMPHOCYTES ABSOLUTE 1.08 10/3/uL (0.67-4.30); MEAN CORPUS HGB CONC 31.4 g/dL (32.0-36.0); MEAN CORPUSCULAR HEMOGLOB 31.3 pg (26.0-34.0); MEAN CORPUSCULAR VOLUME 99.6 fL (80-100); MEAN PLATELET VOLUME 9.3 fL (9.2-13.0); MONOCYTES 9.1 %; MONOCYTES ABSOLUTE 0.66 10/3/uL (0.21-1.20); NEUTROPHILS 71.7 %; NEUTROPHILS ABSOLUTE 5.18 10/3/uL (2.02-8.40); PLATELET COUNT 404 10/3/uL (150-400); RBC DISTRIBUTION WIDTH 18.7 % (12.0-16.0); RED CELL COUNT 2.62 10/6/uL (4.0-5.6); WHITE BLOOD CELLS 7.2 10/3/uL (4.5-10.5)
[2016-12-27 04:56] LABS: MANUAL DIFF NO %
[2016-12-27 05:07] LABS: BUN (BLOOD UREA NITROGEN) 13 MG/DL (6-23); CALCIUM, SERUM 8.4 MG/DL (8.5-10.4); CHLORIDE, SERUM 100 MMOL/L (96-112); CO2 (CARBON DIOXIDE) 25 MMOL/L (24-34); CREATININE 0.42 MG/DL (0.55-1.02); GFR AFRICAN AMERICAN 111 ML/MIN (>=60); GFR NON AFRICAN AMERICAN 95 ML/MIN (>=60); GLUCOSE, SERUM 130 MG/DL (60-99); SODIUM, SERUM 134 MMOL/L (135-148)
[2016-12-27 05:14] LABS: POTASSIUM, SERUM 4.2 MMOL/L (3.5-5.3)
[2016-12-28 14:59] LABS: BASOPHILS 0.7 %; BASOPHILS ABSOLUTE 0.05 10/3/uL (0.0-0.16); EOSINOPHILS ABSOLUTE 0.15 10/3/uL (0.0-0.53); HEMOGLOBIN 8.9 g/dL (12.0-16.0); IMMATURE GRANULOCYTES 0.3 %; IMMATURE GRANULOCYTES ABSOLUTE 0.02 10/3/uL (0.0-0.11); LYMPHOCYTES 17.6 %; LYMPHOCYTES ABSOLUTE 1.32 10/3/uL (0.67-4.30); MEAN CORPUS HGB CONC 30.7 g/dL (32.0-36.0); MEAN CORPUSCULAR HEMOGLOB 30.3 pg (26.0-34.0); MEAN CORPUSCULAR VOLUME 98.6 fL (80-100); MEAN PLATELET VOLUME 8.9 fL (9.2-13.0); MONOCYTES 8.1 %; MONOCYTES ABSOLUTE 0.61 10/3/uL (0.21-1.20); NEUTROPHILS 71.3 %; NEUTROPHILS ABSOLUTE 5.37 10/3/uL (2.02-8.40); PLATELET COUNT 457 10/3/uL (150-400); RBC DISTRIBUTION WIDTH 18.5 % (12.0-16.0); RED CELL COUNT 2.94 10/6/uL (4.0-5.6); WHITE BLOOD CELLS 7.5 10/3/uL (4.5-10.5)
[2016-12-28 15:05] LABS: BUN (BLOOD UREA NITROGEN) 14 MG/DL (6-23); CALCIUM, SERUM 8.7 MG/DL (8.5-10.4); CHLORIDE, SERUM 101 MMOL/L (96-112); CO2 (CARBON DIOXIDE) 25 MMOL/L (24-34); CREATININE 0.42 MG/DL (0.55-1.02); GFR AFRICAN AMERICAN 111 ML/MIN (>=60); GFR NON AFRICAN AMERICAN 95 ML/MIN (>=60); GLUCOSE, SERUM 125 MG/DL (60-99); POTASSIUM, SERUM 4.5 MMOL/L (3.5-5.3); SODIUM, SERUM 135 MMOL/L (135-148)
[2016-12-28 15:18] LABS: MANUAL DIFF NO %
[2016-12-29 04:08] LABS: BASOPHILS 0.3 %; BASOPHILS ABSOLUTE 0.04 10/3/uL (0.0-0.16); EOSINOPHILS ABSOLUTE 0.13 10/3/uL (0.0-0.53); HEMATOCRIT 29.3 % (36.0-48.0); HEMOGLOBIN 9.2 g/dL (12.0-16.0); IMMATURE GRANULOCYTES 0.4 %; IMMATURE GRANULOCYTES ABSOLUTE 0.05 10/3/uL (0.0-0.11); LYMPHOCYTES 9.5 %; LYMPHOCYTES ABSOLUTE 1.28 10/3/uL (0.67-4.30); MEAN CORPUS HGB CONC 31.4 g/dL (32.0-36.0); MEAN CORPUSCULAR HEMOGLOB 30.9 pg (26.0-34.0); MEAN CORPUSCULAR VOLUME 98.3 fL (80-100); MEAN PLATELET VOLUME 9.1 fL (9.2-13.0); MONOCYTES 8.3 %; MONOCYTES ABSOLUTE 1.11 10/3/uL (0.21-1.20); NEUTROPHILS 80.5 %; PLATELET COUNT 475 10/3/uL (150-400); RBC DISTRIBUTION WIDTH 18.7 % (12.0-16.0); RED CELL COUNT 2.98 10/6/uL (4.0-5.6)
[2016-12-29 04:15] LABS: MANUAL DIFF NO %; WHITE BLOOD CELLS 13.4 10/3/uL (4.5-10.5)
[2016-12-29 04:36] LABS: BUN (BLOOD UREA NITROGEN) 15 MG/DL (6-23); CALCIUM, SERUM 8.9 MG/DL (8.5-10.4); CHLORIDE, SERUM 100 MMOL/L (96-112); CO2 (CARBON DIOXIDE) 29 MMOL/L (24-34); CREATININE 0.43 MG/DL (0.55-1.02); GFR AFRICAN AMERICAN 110 ML/MIN (>=60); GFR NON AFRICAN AMERICAN 95 ML/MIN (>=60); GLUCOSE, SERUM 135 MG/DL (60-99); SODIUM, SERUM 134 MMOL/L (135-148)
[2016-12-30 05:33] LABS: BASOPHILS 0.2 %; BASOPHILS ABSOLUTE 0.02 10/3/uL (0.0-0.16); EOSINOPHILS 2.1 %; EOSINOPHILS ABSOLUTE 0.18 10/3/uL (0.0-0.53); HEMOGLOBIN 7.6 g/dL (12.0-16.0); IMMATURE GRANULOCYTES 0.1 %; IMMATURE GRANULOCYTES ABSOLUTE 0.01 10/3/uL (0.0-0.11); LYMPHOCYTES 15.3 %; LYMPHOCYTES ABSOLUTE 1.31 10/3/uL (0.67-4.30); MEAN CORPUS HGB CONC 30.8 g/dL (32.0-36.0); MEAN CORPUSCULAR VOLUME 97.6 fL (80-100); MONOCYTES 6.8 %; MONOCYTES ABSOLUTE 0.58 10/3/uL (0.21-1.20); NEUTROPHILS 75.5 %; NEUTROPHILS ABSOLUTE 6.46 10/3/uL (2.02-8.40); PLATELET COUNT 394 10/3/uL (150-400); RBC DISTRIBUTION WIDTH 18.8 % (12.0-16.0); RED CELL COUNT 2.53 10/6/uL (4.0-5.6); WHITE BLOOD CELLS 8.6 10/3/uL (4.5-10.5)
[2016-12-30 05:44] LABS: BUN (BLOOD UREA NITROGEN) 13 MG/DL (6-23); CALCIUM, SERUM 8.3 MG/DL (8.5-10.4); CHLORIDE, SERUM 102 MMOL/L (96-112); CO2 (CARBON DIOXIDE) 28 MMOL/L (24-34); CREATININE 0.45 MG/DL (0.55-1.02); GFR AFRICAN AMERICAN 108 ML/MIN (>=60); GFR NON AFRICAN AMERICAN 93 ML/MIN (>=60); GLUCOSE, SERUM 137 MG/DL (60-99); POTASSIUM, SERUM 4.1 MMOL/L (3.5-5.3); SODIUM, SERUM 135 MMOL/L (135-148)
[2016-12-30 05:45] LABS: HEMATOCRIT 24.7 % (36.0-48.0); MANUAL DIFF NO %
[2016-12-30 06:35] LABS: PROCALCITONIN 0.05 ng/mL (<0.5)
[2016-12-31 07:13] LABS: BASOPHILS 0.6 %; BASOPHILS ABSOLUTE 0.04 10/3/uL (0.0-0.16); EOSINOPHILS 3.4 %; EOSINOPHILS ABSOLUTE 0.21 10/3/uL (0.0-0.53); HEMOGLOBIN 8.1 g/dL (12.0-16.0); IMMATURE GRANULOCYTES 0.3 %; IMMATURE GRANULOCYTES ABSOLUTE 0.02 10/3/uL (0.0-0.11); LYMPHOCYTES 16.5 %; LYMPHOCYTES ABSOLUTE 1.02 10/3/uL (0.67-4.30); MEAN CORPUS HGB CONC 31.2 g/dL (32.0-36.0); MEAN CORPUSCULAR HEMOGLOB 30.8 pg (26.0-34.0); MEAN CORPUSCULAR VOLUME 98.9 fL (80-100); MEAN PLATELET VOLUME 9.1 fL (9.2-13.0); MONOCYTES 11.3 %; NEUTROPHILS 67.9 %; NEUTROPHILS ABSOLUTE 4.18 10/3/uL (2.02-8.40); PLATELET COUNT 401 10/3/uL (150-400); RBC DISTRIBUTION WIDTH 18.4 % (12.0-16.0); RED CELL COUNT 2.63 10/6/uL (4.0-5.6); WHITE BLOOD CELLS 6.2 10/3/uL (4.5-10.5)
[2016-12-31 07:18] LABS: MANUAL DIFF NO %
[2016-12-31 07:23] LABS: BUN (BLOOD UREA NITROGEN) 13 MG/DL (6-23); CALCIUM, SERUM 8.5 MG/DL (8.5-10.4); CHLORIDE, SERUM 101 MMOL/L (96-112); CO2 (CARBON DIOXIDE) 30 MMOL/L (24-34); GFR AFRICAN AMERICAN 124 ML/MIN (>=60); GFR NON AFRICAN AMERICAN 107 ML/MIN (>=60); GLUCOSE, SERUM 135 MG/DL (60-99); POTASSIUM, SERUM 4.1 MMOL/L (3.5-5.3); SODIUM, SERUM 138 MMOL/L (135-148)
[2016-12-31 09:23] LABS: C-REACTIVE PROTEIN 45.7 MG/L (<8.0)
[2017-01-03] MEDS ORDERED: LOVENOX40 SC (00:33)
[2017-01-03] MEDS ORDERED: HUMALOG SC (00:34)
[2017-01-03] MEDS ORDERED: LEVEMIR SC (00:35)
[2017-01-03] MEDS ORDERED: DUONEB INH (00:36)
[2017-01-03] MEDS ORDERED: PRIN10 PEG (00:36)
[2017-01-03] MEDS ORDERED: ASAB PEG (00:36)
[2017-01-03] MEDS ORDERED: SYN125 PEG (00:36)
[2017-01-03] MEDS ORDERED: KCL20UDL PEG (00:37)
[2017-01-03] MEDS ORDERED: FLORASTOR250 MG PEG (00:37)
[2017-01-03] MEDS ORDERED: COREG6 PEG (00:38)
[2017-01-03] MEDS ORDERED: PROTONI1 PEG (00:38)
[2017-01-03] MEDS ORDERED: LIPITOR80 MG PEG (00:38)
[2017-01-03] MEDS ORDERED: ZOFRAN4 PEG (00:39)
[2017-01-03] MEDS ORDERED: ACETSUP650 PR (00:39)
[2017-01-03] MEDS ORDERED: PLAVIX PO (04:26)
[2017-01-22] MEDS ORDERED: PLAVIX PEG (01:50)
[2017-01-22] MEDS ORDERED: LOVENOX40 SC (01:50)
[2017-01-22] MEDS ORDERED: LEVEMFLXPN SC (01:51)
[2017-01-22] MEDS ORDERED: ASAB PEG (01:51)
[2017-01-22] MEDS ORDERED: HUMALOG SC (01:51)
[2017-01-22] MEDS ORDERED: FLORASTOR250 MG PEG (01:53)
[2017-01-22] MEDS ORDERED: KCL20UDL PEG (01:53)
[2017-01-22] MEDS ORDERED: LIPITOR80 MG PEG (01:54)
[2017-01-22] MEDS ORDERED: COREG25 PEG (01:55)
[2017-01-22] MEDS ORDERED: PROTONI1 PEG (01:55)
[2017-01-22] MEDS ORDERED: APRES50 PEG (01:56)
[2017-01-22] MEDS ORDERED: DUONEB INH ×2 (01:56→01:57)
[2017-01-22] MEDS ORDERED: PRIN20 PEG (01:56)
[2017-01-22] MEDS ORDERED: BROVANA15 MCG INH (01:57)
[2017-01-22] MEDS ORDERED: ACETSUP650 PR (01:58)
[2017-01-22] MEDS ORDERED: ZOFRAN4 PEG (01:58)
[2017-01-22] MEDS ORDERED: SYN.15 PEG (01:59)
[2017-01-22] MEDS ORDERED: RISAMINE OINTMENT TOP (02:00)
[2017-02-11] MEDS ORDERED: PLAVIX PEG (19:08)
[2017-02-11] MEDS ORDERED: LOVENOX40 SC (19:09)
[2017-02-11] MEDS ORDERED: NOVOLOG SC (19:10)
[2017-02-11] MEDS ORDERED: LEVEMIR SC (19:12)
[2017-02-11] MEDS ORDERED: SYN.15 PEG (19:13)
[2017-02-11] MEDS ORDERED: PROTONI1 PEG (19:13)
[2017-02-11] MEDS ORDERED: TEARS PURE OPH (19:14)
[2017-02-11] MEDS ORDERED: ASAB PEG (19:14)
[2017-02-11] MEDS ORDERED: NORV5 PEG (19:14)
[2017-02-11] MEDS ORDERED: COREG25 PEG (19:15)
[2017-02-11] MEDS ORDERED: ZESTRIL30 MG PEG (19:15)
[2017-02-11] MEDS ORDERED: KCL20UDL PEG (19:16)
[2017-02-11] MEDS ORDERED: FLORASTOR250 MG PEG (19:16)
[2017-02-11] MEDS ORDERED: DUONEB INH ×2 (19:19→19:29)
[2017-02-11] MEDS ORDERED: LIPITOR10 PEG (19:19)
[2017-02-11] MEDS ORDERED: BROVANA15 MCG INH (19:21)
[2017-02-11] MEDS ORDERED: 8 HOUR650 MG PEG (19:21)
[2017-02-11] MEDS ORDERED: ACETSUP650 PR (19:22)
[2017-02-11] MEDS ORDERED: DSS PEG (19:23)
[2017-02-11] MEDS ORDERED: ZOFRAN ODT4 MG PO (19:27)
[2017-02-11] MEDS ORDERED: ALBUTEROL0.083 % INH (19:28)
[2017-02-11] MEDS ORDERED: RISAMINE OINTMENT TOP (19:31)
== END 2017-01-01 15:08 | DRG 177 ==
LOC: ER 13:52 → 6NO 17:21
PROVIDERS: Emergency Medicine; Internal Medicine
DX: J69.0 Pneumonitis due to inhalation of food and vomit (principal); J96.21 Acute and chronic respiratory failure with hypoxia; G92 Toxic encephalopathy; R13.12 Dysphagia, oropharyngeal phase; R56.9 Unspecified convulsions; E44.1 Mild protein-calorie malnutrition; K11.20 Sialoadenitis, unspecified; T36.1X5A Adverse effect of cephalosporins and other beta-lactam antibiotics, initial encounter; E03.9 Hypothyroidism, unspecified; E11.9 Type 2 diabetes mellitus without complications; R53.81 Other malaise; I69.398 Other sequelae of cerebral infarction; Z79.82 Long term (current) use of aspirin; Z93.1 Gastrostomy status; Z79.02 Long term (current) use of antithrombotics/antiplatelets; Z88.2 Allergy status to sulfonamides; Z68.27 Body mass index [BMI] 27.0-27.9, adult; Z79.4 Long term (current) use of insulin; Z90.49 Acquired absence of other specified parts of digestive tract; Z96.651 Presence of right artificial knee joint
CPT/HCPCS: 36600; 70551; 71010; 80048; 80053; 80202; 81001; 82272; 82728; 82805; 82962; 83605; 83735; 83880; 84100; 84145; 84443; 84484; 85025; 85045; 85610; 85730; 86140; 87040; 87493; 87493-59; 92610-GN; 93005; 94640; 95816; 96365; 96367; 97110-GO; 97162-GP; 97164-GP; 97167-GO; 99285; A9270-GY; C9113; G8978-CN-GP; G8979-CN-GP; G8980-CN-GP; G8987-CN-GO; G8988-CN-GO; G8989-CN-GO; G8996-CN-GN; G8997-CN-GN; G8998-CN-GN; J0692; J1953; J2543; J3370; J3475